=== PATIENT | male | born 1960 | race Caucasian/White ===

== ENCOUNTER 2024-12-29 09:18 | Outpatient (OUT) | payer OTHER, SELFPAY ==
[2024-12-29 09:56] LABS: Anion Gap 13.3; BUN Creatinine Ratio 18.5; Calcium 9.4 mg/dL (8.5-10.1); Carbon Dioxide 31.1 mmol/L (21.0-32.0); Chloride 102 mmol/L (98-107); Estimated GFR (African America >60 (>=60 mL/min/1.73m^2); Estimated GFR (Non-African Ame >60 (>=60 mL/min/1.73m^2); Glucose 105 mg/dL (74-106); Potassium 4.4 mmol/L (3.5-5.1); Sodium 142 mmol/L (136-145)
[2024-12-29 10:01] LABS: INR 1.02; Partial Thromboplastin Time 26.7 sec (22.3-36.2); Prothrombin Time 10.8 sec (9.0-11.6)
[2024-12-29 10:12] LABS: Basophils Percent Auto 0.6 % (0.2-2.0); Eosinophils Absolute Auto 0.1 10^3/uL (0.0-0.7); Eosinophils Percent Auto 1.4 % (0.9-7.0); Hematocrit 40.7 % (42.0-54.0); Hemoglobin 13.4 g/dL (14.0-18.0); Immature Granulocytes Abs Auto 0.04 10^3/uL (0.00-0.03); Immature Granulocytes Pct Auto 0.6 % (0.0-0.5); Lymphocytes Absolute Auto 1.7 10^3/uL (1.2-3.8); Lymphocytes Percent Auto 26.5 % (20.5-60.0); Mean Corpuscular HGB Conc 32.9 g/dL (29.9-35.2); Mean Corpuscular Hemoglobin 28.6 pg (25.9-34.0); Mean Platelet Volume 9.7 fL (9.5-13.5); Monocytes Absolute Auto 0.5 10^3/uL (0.3-0.8); Monocytes Percent Auto 7.7 % (1.7-12.0); Neutrophils Absolute Auto 4.1 10^3/uL (1.4-6.5); Neutrophils Percent Auto 63.2 % (43.0-75.0); Platelet Count 289 10^3/uL (150-450); Red Blood Count 4.68 10^6/uL (4.70-6.10); Red Cell Distribution Width 12.4 % (11.0-15.0); White Blood Count 6.5 10^3/uL (4.0-11.0)
== END 2024-12-29 09:19 | disposition home or self-care (01) ==
LOC: PST 09:18
PROVIDERS: PCP Family Medicine; Visit Provider Urology
DX: Z01.812 Encounter for preprocedural laboratory examination (principal); N20.0 Calculus of kidney
CPT/HCPCS: 80048; 85025; 85610; 85730

== ENCOUNTER 2025-01-01 07:58 | Day surgery (SDC) | payer OTHER, SELFPAY ==
[2024-12-29 09:42] VITALS: BP 137/88; PULSE 86; TEMP 36.2; O2SAT 98; BMI 28.2
[2025-01-01] VITALS (10 sets, daily range): BP systolic 135–161; BP diastolic 90–101; PULSE 71–79; TEMP 36–36.1; O2SAT 94–98; BMI 28.2
--- NOTE | 2025-01-01 | FL_ITS ---
[place] [id number] Patient Name: VIRGINIA LOZADA MRN: [id number] date: 1960 Sex: M Assigned Patient Location: [facility] Current Patient Location: [facility] Accession/Order Number: [id number] Exam Date: 01/01/2025 10:17 Report Date: 01/02/2025 08:20 At the request of: ROMMEL RIVERA Procedure: FL fluoroscopy <1hr NON-READ EXAM: FL fluoroscopy <1hr NON-READ HISTORY: TECHNIQUE: FINDINGS: Please see Operative Report. Electronically authenticated by: RADIOLOGIST NO Date: 01/02/2025 08:20
--- OUTSIDE RECORDS SUMMARY | 2025-01-01 08:03 | XMS_ITS | CCD ---
Author Organization [facility]ini[facility] Care Team Providers Care Commercial Portfolio Manager Name Role Phone Link, Ramon Rodriguez Unavailable Unavailable Unavailable Mare Hughes Unavailable NICOLE, DR CARNEY Consulting Unavailable NICOLE, DR CARNEY Attending Unavailable MISC, DR MUNIZ Primary Care Unavailable RIVERA, DR CARNEY Admitting Unavailable RIVERA, DR CARNEY Consulting Unavailable RIVERA, DR CARNEY Attending Unavailable MISC, DR MUNIZ Primary Care Unavailable NICOLE, DR CARNEY Admitting Unavailable RIVERA, DR CARNEY Consulting Unavailable RIVERA, DR CARNEY Attending Unavailable MISC, DR MUNIZ Primary Care Unavailable RIVERA, DR CARNEY Admitting Unavailable ZIEBER, DR DORY Frias Consulting Unavailable AGUBOSIM, KAELYN Consulting Unavailable CARLY, GEORGI Consulting Unavailable Cortney Booker Primary Care Physician Clark Sadler Unavailable MD Mare Hughes Attending Provider MD Mare Hughes Referring Provider [phone] DO Clark Sadler Primary Care Provider [phone] SERGO NICOLE Attending Unavailable MARE HUGHES Referring Unavailable CLARK SADLER Primary Care UnavailMD Mare Martinez Attending Provider MD Mare Hughes Referring Provider DO Clark Sadler Primary Care Provider Clark Sadler Primary Care Physician Clark Sadler Primary Care Unavailable Mare Hughes Admitting Unavailable Mare Hughes Attending Unavailable Mare Hughes Referring Unavailable Mare Hughes Admitting Unavailable HughesMare Attending Unavailable HughesMare Referring Unavailable Viktoriya, Clark C Primary Care Unavailable Viktoriya DO, Clark C Primary Care Provider Hughes, Dr. Mare Moeller Attending Elena vailable Hughes, Dr. Mare Moeller Referring Elena vailable Link, Dr. Ramon Olvera Primary Care Unava ilable Hughes, Dr. Mare Moeller Attending Elena vailable Hughes, Dr. Mare Moeller Referring Elena vailable Hughes, Dr. Mare Moeller Attending Elena vailable Hughes, Dr. Mare Moeller Attending Elena vailable Hughes, Dr. Mare Moeller Referring Elena vailable DAVID, SERGO S Admitting Unavailable DAVID, SERGO S Attending Unavailable VIKTORIYA, CLARK C Primary Care Unavailable Viktoriya DO, Clark C Primary Care Provider [phone] Rommel RIVERA Attending Unavailable RIVERARommel R Referring Unavailable RIVERARommel R Admitting Unavailable HughesMare Admitting Unavailable HughesMare Attending Unavailable Unavailable Primary Care Provider Unavailsharon e Unallocated MD, Noms Provider Primary Care Provi enrique Pocos DOGinny Unavailable Rommel RIVERA Attending Unavailable RIVERA, Rommel R Attending Unavailable RIVERA, Rommel R Referring Unavailable RIVERA, Rommel R Admitting Unavailable RIVERA, Rommel R Attending Unavailable Santiago RICHARDS Attending Unavailable PREMA SUN Attending Unavailable POCOS, GINNY Villarreal Referring Unavailable POCOS, GINNY Villarreal Referring Unavailable POCOS, GINNY Villarreal Attending Unavailable POCOS, GINNY Villarreal Referring Unavailable POCOS, GINYN Villarreal Attending Unavailable SAMSA, SARAHY P Attending Unavailable SAMSA, SARAHY P Referring Unavailable SAMSA, SARAHY P Admitting Unavailable SAMSA, SARAHY P Admitting Unavailable SAMSA, SARAHY P Attending Unavailable SAMSA, SARAHY P Referring Unavailable Hughes, Mare Admitting Unavailable Hughes, Mare Attending Unavailable RIVERARommel R Attending Unavailable HUGHES, MARE Kumar Attending Unavailable HUGHES, MARE Kumar Referring Unavailable VIKTORIYAADAMCLARK C Primary Care Unavailable HUGHES, MARE Kumar Referring Unavailable VIKTORIYA, CLARK C Primary Care Unavailable MARE HUGHES Attending Unavailable MARE HUGHES Referring Unavailable CLARK SADLER Primary Care Unavailable MARE HUGHES Attending Unavailable MARE HUGHES Referring Unavailable CLARK SADLER Primary Care Unavailable MARE HUGHES Attending Unavailable CLARK SADLER Primary Care Unavailable Clark Sadler MD Primary Care Provider [phone] Medications Current Medications Medication Drug Class(es) Dates Sig (Normalized) Sig (Original) acetaminophen 325 mg oral tablet (1 source) Start: 12-13-2023 take 1 tablet by mouth every six hours as needed acetaminophen (Tylenol) tablet 650 mg amiodarone hydrochloride 200 mg oral tablet (15 sources) Antiarrhythmic Start: 12-14-2023 End: 06-11-2024 take 1.5 tablets by mouth once daily amiodarone (Pacerone) 200 mg tablet Indications: Paroxysmal atrial fibrillation (Multi) Take 1.5 tablets (300 mg) by mouth once daily. Take 1.5 tablets daily or 300 mg 45 tablet 5 12/14/2023 04/02/2024 Discontinued (Discontinued by another clinician) Start: 09-10-2023 End: 12-14-2023 amiodarone 200 mg Tab Refill s(s) 0 Start Date: 11/23/23 Status: Ordered Start: 08-16-2023 take 2 tablets by mo uth twice daily Amiodarone HCl - 200 MG Oral Tablet TAKE 2 TABLET Twice daily Quantity: 360 Refills: 1 Ordered: 16-Aug-2023 Mare Hughes MD Start : 16-Aug-2023 Active stop flecainide new start amLODIPine 10 mg oral tablet (20 sources) Dihydropyridine Calcium Channel Cayetano Start: 11-23-2023 End: 11-22-2024 take 5 mg by mouth once daily 5 mg, oral, Daily, First dose on [facility] 12/13/23 at 0900 Start: 10-04-2021 End: 12-09-2025 take 1 tablet by mouth once daily amLODIPine (Norvasc) 10 mg tablet Indications: Benign essential hypertension Take 1 tablet (10 mg) by mouth once daily. 90 tablet 3 12/09/2024 12/09/2025 Active Comment on above: Take 10 mg by mouth once daily. clotrimazole 10 mg/ml topical cream (4 sources) Azole Antifungal Start: clotrimazole Top 1% Crm 1 kleber, Topical, BID, 12 gram, Refill(s) 0, [facility]/pharmacy #[id number], 182, cm, 08/09/22 13:31:00 EDT, Height/Length Dosing, 89, kg, 08/09/22 13:31:00 EDT, Weight Dosing Start Date: 08/09/22 Status: Ordered docusate sodium 100 mg oral capsule (1 source) Start: End: take 1 capsule by mouth twice daily docusate sodium (COLACE) 100 mg capsule Take 1 capsule by mouth twice daily. 60 capsule 0 01/27/2022 02/26/2022 Active Comment on above: Take 1 capsule by mo uth twice daily. hydroCHLOROthiazide 25 mg oral tablet (20 sources) Thiazide Diuretic Start: take 12.5 mg by mouth once daily 12.5 mg, oral, Daily, First dose on [facility] 12/13/23 at 0900 Start: 10-04-2021 End: 11-28-2024 take 1 tablet by mouth once daily hydrochlorothiazide 12.5 mg Tab 12.5 mg = 1 tab(s), Oral, Daily, # 30 tab(s), Refills(s) 0, Pharmacy: [facility]/pharmacy #[id number], 182.9, cm, 10/03/21 8:43:00 EST, Height/Length Dosing, 91, kg, 10/03/21 8:43:00 EST, Weight Dosing Start Date: 10/04/21 Status: Ordered Comment on above: Take 12.5 mg by mout h once daily. Hydrocortisone (4 sources) Corticosteroid Start: hydrocortisone Top 1% Crm 1 kleber, Topical, BID, 14 gram, Refill(s) 0, [facility]/pharmacy #[id number], 182, cm, 08/09/22 13:31:00 EDT, Height/Length Dosing, 89, kg, 08/09/22 13:31:00 EDT, Weight Dosing Start Date: 08/09/22 Status: Ordered indapamide 1.25 mg oral tablet (10 sources) Thiazide-like Diuretic Start: End: take 1 tablet by mouth once daily in the morning indapamide (Lozol) 1.25 mg tablet Indications: Benign essential hypertension Take 1 tablet (1.25 mg) by mouth once daily in the morning. 90 tablet 3 08/19/2024 08/19/2025 Active 24 hr metoprolol succinate 25 mg extended release oral tablet (20 sources) beta-Adrenergic Cayetano Start: take 1 tablet by mouth every twenty-four hours in the morning metoprolol succinate XL (Toprol-XL) 25 MG 24 hr tablet Take 25 mg by mouth in the morning. 08/19/2024 Active Start: 11-03-2023 End: 12-25-2024 take 1 tablet by mouth once daily metoprolol succinate XL (Toprol-XL) 25 mg 24 hr tablet Indications: Benign essential hypertension Take 1 tablet (25 mg) by mouth once daily. Do not crush or chew. 5 tablet 08/19/2024 12/25/2024 Discontinued (Therapy completed) Start: 07-12-2023 take 25 mg by mouth once daily Metoprolol Succinate Active 25 MG PO Daily August 08, 2023 11:00pm End: 12-11-2023 take 1 tablet by mouth once daily metoprolol tartrate (Lopressor) 25 mg tablet Take 1 tablet (25 mg) by mouth once daily. 0 12/11/2023 Discontinued (Med List Cleanup) omeprazole 20 mg delayed release oral capsule (20 sources) Proton Pump Inhibitor Start: 08-09-2023 take 40 mg by mouth once daily Omeprazole Active 40 MG PO Daily August 08, 2023 11:00pm Start: 12-26-2013 take 1 capsule by mo [facility] once daily omeprazole 40 mg Cap-EC 40 mg = 1 cap(s), Oral, Daily, Refills(s) 0, Control of stomach acid Start Date: 12/26/13 Status: Ordered End: 12-25-2024 take 1 capsule by mouth before mealtime omeprazole (PriLOSEC) [address] capsule Take 20 mg by mouth in the morning. Take before meals. Active End: 12-13-2023 take 2 capsules by mouth once daily omeprazole (PriLOSEC) [address] capsule Take 2 capsules (40 mg) by mouth once daily. 0 12/13/2023 Discontinued (Stop Taking at Discharge) Comment on above: Take 20 mg by mouth once daily. pantoprazole 40 mg delayed release oral tablet (4 sources) Proton Pump Inhibitor Start: 12-13-2023 take 40 mg by mouth once daily before breakfast 40 mg, oral, Daily before breakfast, First dose on [facility] 12/13/23 at 0700 Do not crush, chew, or split. Start: 12-12-2023 End: 04-02-2024 take 1 tablet by mouth twice daily pantoprazole (ProtoNix) 40 mg EC tablet Indications: Persistent atrial fibrillation (Multi) Take 1 tablet (40 mg) by mouth 2 times a day. Do not crush, chew, or split. 60 tablet 12/12/2023 04/02/2024 Discontinued (Other) rivaroxaban 20 mg oral tablet (20 sources) Factor Xa Inhibitor Start: 11-23-2023 Xarelto 20 mg oral tablet Refills(s) 0 Start Date: 11/23/23 Status: Ordered Start: 07-12-2023 End: 12-03-2024 Xarelto 20 mg oral tablet Re fills(s) 0 Start Date: 11/23/23 Status: Ordered sodium fluoride 0.011 mg/mg toothpaste (2 sources) Start: 12-19-2023 End: 08-19-2024 Denta 5000 Plus 1.1 % dental cream BRUSH FOR 2 MINUTES AT BEDTIME .AFTER USE,EXPECTORATE.DO NOT EAT,DRINK OR RINSE X30 MINUTES 12/19/2023 08/19/2024 Discontinued (Therapy completed) Completed/Discontinued Medications Medication Drug Class(es) Dates Sig (Normalized) Sig (Original) aspirin 81 mg delayed release oral tablet (13 sources) Platelet Aggregation Inhibitor, Nonsteroidal Anti-inflammatory Drug Start: 10-02-2023 End: 12-12-2023 take 81 mg by mouth once daily Aspirin Discontinued 81 MG PO Daily October 02, 2023 12:00am October 03, 2023 1:38pm Start: 10-16-2022 aspirin 81 mg oral capsule Refills(s) 0 Start Date: 10/16/22 Status: Ordered aspirin 81 mg ca p Take by mouth. 0 Active Comment on above: Take by mouth. flecainide acetate 50 mg oral tablet (6 sources) Antiarrhythmic Start: 08-09-2023 End: 10-02-2023 take 50 mg by mouth every twelve hours Flecainide Discontinued 50 MG PO Q12H August 08, 2023 11:00pm October 02, 2023 1:22pm Start: 07-12-2023 take 1 tablet by dennise th once daily Flecainide Acetate 50 MG Oral Tablet TAKE 1 TABLET EVERY 12 HOURS DAILY. Quantity: 180 Refills: 3 Ordered: 12-Jul-2023 Mare Hughes MD Start : 12-Jul-2023 Active new start 2 ml ondansetron 2 mg/ml injection (1 source) Serotonin-3 Receptor Antagonist Start: 12-12-2023 End: 12-12-2023 ondansetron (Zofran) injection 4 mg Problems Active Problems Problem Classification Problem Date Documented Date Episodic/Chronic Cancer of kidney and renal pelvis (1 source) Malignant tumor of kidney; Translations: [Malignant neoplasm of right kidney, except renal pelvis] Chronic Cardiac dysrhythmias (20 sources) Atrial fibrillation; Translations: [Atrial fibrillation] Onset: 01-16-2022 01-23-2022 Chronic Conduction disorders (20 sources) EKG: right bundle branch block; Translations: [Right bundle branch block] Onset: 08-29-2023 08-29-2023 Chronic Disorders of lipid metabolism (1 source) Hyperlipidemia, unspecified; Translations: [HYPERLIPIDEMIA UNSPECIFIED] Onset: 01-16-2022 Chronic Esophageal disorders (18 sources) Gastroesophageal reflux disease; Translations: [Gastro-esophageal reflux disease without esophagitis] Onset: 01-23-2022 01-23-2022 Chronic Essential hypertension (20 sources) Benign essential hypertension; Translations: [Benign essential hypertension] Onset: 01-16-2022 01-23-2022 Chronic Hyperplasia of prostate (20 sources) Benign prostatic hyperplasia with lower urinary tract symptoms; Translations: [Benign prostatic hypertrophy with outflow obstruction] Onset: 01-16-2022 10-26-2021 Chronic Osteoarthritis (17 sources) Osteoarthritis of hip; Translations: [Osteoarthritis of hip, unspecified] Onset: 01-12-2024 09-20-2017 Chronic Comment on above: right Other aftercare (3 sources) Drug therapy finding; Translations: [Long-term (current) use of other medications] Episodic Other aftercare (2 sources) Taking high risk medication; Translations: [Other manager terminal (current) drug therapy] 12-14-2023 Episodic Other congenital anomalies (2 sources) Other specified congenital musculoskeletal deformities; Translations: [Unspecified anomaly of upper limb] 12-03-2024 Chronic Other congenital anomalies (2 sources) Congenital abnormal fusion of radius; 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), including shoulder girdle] 12-24-2024 Chronic Other connective tissue disease (1 source) Muscle weakness of upper limb; Translations: [Other symptoms and signs involving the musculoskeletal system] 12-15-2024 Episodic Other connective tissue disease (1 source) Pain in right arm; Translations: [Pain in right arm] 12-15-2024 Episodic Other connective tissue disease (3 sources) Pain in left arm; Translations: [Pain in left arm] 12-15-2024 Episodic Other diseases of kidney and ureters (20 sources) Renal mass; Translations: [Unspecified disorder of kidney and ureter] Onset: 01-25-2022 01-25-2022 Chronic Other diseases of kidney and ureters (1 source) Other specified disorders of kidney and ureter; Translations: [OTHER SPEC DISORDERS KIDNEY URETER] Onset: 01-16-2022 Chronic Other diseases of kidney and ureters (3 sources) Disorder of kidney and/or ureter; Translations: [Other specified disorders of kidney and ureter] Onset: 10-16-2022 Chronic Other inflammatory condition of skin (17 sources) Rosacea; Translations: [Rosacea, unspecified] Onset: 01-12-2024 10-04-2021 Chronic Other male genital disorders (7 sources) Disorder of penis; Translations: [Other specified disorders of penis] Onset: 08-09-2022 Chronic Other male genital disorders (15 sources) Penile swelling; Translations: [Other specified disorders of penis] Onset: 01-12-2024 10-16-2022 Chronic Other nervous system disorders (5 sources) Bilateral carpal tunnel syndrome; Translations: [Carpal tunnel syndrome, bilateral upper limbs] 12-03-2024 Chronic Other nervous system disorders (1 source) Numbness; Translations: [Anesthesia of skin] 12-15-2024 Episodic Other non-traumatic joint disorders (2 sources) Bilateral wrist pain; Translations: [Pain in right wrist] 12-03-2024 Episodic Other nutritional; endocrine; and metabolic disorders (3 sources) Body mass index 30+ - obesity; Translations: [Body mass index (BMI) 33.0-33.9, adult] Onset: 10-15-2024 10-15-2024 Chronic Other nutritional; endocrine; and metabolic disorders (2 sources) Body mass index (BMI) 33.0-33.9, adult; Translations: [Body mass index (BMI) 33.0-33.9, adult] Onset: 10-15-2024 Chronic Other upper respiratory infections (17 sources) Chronic sinusitis; Translations: [Chronic sinusitis, unspecified] Onset: 01-12-2024 01-30-2014 Chronic Unclassified (11 sources) Asymptomatic microscopic hematuria 10-16-2022 Unclassified (10 sources) Patient encounter status 11-23-2023 Unclassified (2 sources) Other persistent atrial fibrillation; Translations: [Other persistent atrial fibrillation (CMS/HCC)] Onset: 12-12-2023 Past or Other Problems Problem Classification Problem Date Documented Date Episodic/Chronic Calculus of urinary tract (20 sources) Kidney stone; Translations: [Calculus of kidney] Onset: 01-06-2022 Episodic E Codes: Natural/environment (5 sources) Other and unspecified overexertion or strenuous movements or postures, initial encounter; Translations: [Overexertion (event)] Onset: 08-09-2022 Episodic Genitourinary symptoms and ill-defined conditions (20 sources) Hematuria, unspecified; Translations: [Microscopic hematuria] Onset: 01-16-2022 10-26-2021 Episodic Other diseases of veins and lymphatics (18 sources) Varicocele; Translations: [Scrotal varices] Onset: 10-16-2022 Episodic Other nutritional; endocrine; and metabolic disorders (20 sources) Overweight in adulthood with body mass index of 25 or more but less than 30; Translations: [Overweight] Onset: 08-29-2023 08-29-2023 Episodic Other nutritional; endocrine; and metabolic disorders (6 sources) Overweight; Translations: [Overweight] Onset: 01-12-2024 12-14-2023 Episodic Other nutritional; endocrine; and metabolic disorders (2 sources) Body mass index (BMI) 28.0-28.9, adult; Translations: [Body mass index (BMI) 28.0-28.9, adult] Onset: 08-19-2024 Episodic Other nutritional; endocrine; and metabolic disorders (1 source) Overweight; Translations: [Overweight] Onset: 08-29-2023 Episodic Other nutritional; endocrine; and metabolic disorders (2 sources) Body mass index (BMI) 26.0-26.9, adult; Translations: [Body mass index (BMI) 26.0-26.9, adult] Onset: 08-29-2023 Episodic Other screening for suspected conditions (not mental disorders or infectious disease) (20 sources) Electrocardiogram abnormal; Translations: [Nonspecific abnormal electrocardiogram [ECG] [EKG]] Onset: 08-29-2023 Episodic Residual codes; unclassified (7 sources) Never smoked tobacco; Translations: [Other specified health status] Onset: 04-02-2024 04-02-2024 Episodic Residual codes; unclassified (2 sources) Other specified health status; Translations: [Other specified health status] Onset: 04-02-2024 Episodic Screening and history of mental health and substance abuse codes (4 sources) Ex-smoker; Translations: [Personal history of nicotine dependence] Onset: 04-02-2024 Resolved: 04-02-2024 04-02-2024 Episodic Unclassified (13 sources) Never smoked tobacco; Translations: [Never a smoker] Unclassified (4 sources) Onset: 04-02-2024 04-02-2024 Results Test Name Value Interpretation Reference Range Facility ECG 12 [place] 12-25-2024 ECG revealed normal sinus rhythm, right bundle branch block, abnormal ECG [facility] Work Phone: Reminderson 12-24-2024 Reminders Reminders From: Margaret Paredes To: EU - Recalls Rivera; Sent: 12/22/2024 16:29:15 EST Show up: 11/19/2025 16:29:00 EST Subject: Ct scan/labs in 2025 Due Date/Time: 12/07/2025 16:29:00 EST Reminder/Recall Patient is due Before 12/25/[address] scan ABD/Pelvis w/wo, PSA, CXR, bun/creatinine at [facility] Orders were placed. Orders were removed and will need to be placed closer to date.LG Normal [facility] Urology Office/Clinic Noteon 12-22-2024 Urology Office/Clinic Note Urology Office/Clinic Note Chief Complaint 1yr f/u HPI Staff 64yr old male pt here for 1yr f/u with CT scan, CXR, PSA, bun/creatinine. CT & CXR completed 12/02/24. S/p robotic partial rt nephrectomy done 01/25/22 Previous Dx: renal mass, kidney stone, asymptomatic microscopic hematuria, BPH with urinary obstruction, screening PSA, bilateral varicoceles PSA: 10/26/21 - 0.3 10/26/23 - 0.2 12/02/24 - 0.3 Dysuria: denies Incomplete bladder emptying: denies Hematuria: denies Frequency: 5-6x per day Urgency: a little bit, which has improved since last vist Nocturia: 2-3x per night Stream: normal stream Leaking: denies Post void dripping: denies Wearing pads/ Depends: denies Urge incontinence: denies Stress incontinence: denies Incontinence without Sensory Awareness: denies Abdominal pain: denies Flank pain: denies Sexual complaints: denies History of Present Illness Tests reviewed: reviewed UA, PSA, CT scan, X-ray, Renal function labs I have reviewed the previous health record information and history for this patient from Dr. Rivera. I have reviewed and verified the staff HPI to be accurate for this encounter. Review of Systems PHQ Score Initial Depression Screen Score: 0 SCORE ROS - Provider Constitutional: denies weight loss, denies hot flashes. Eyes: denies eye problems. Gastrointestinal: denies nausea, denies vomiting. Cardiovascular: denies chest pain or angina. Integumentary: no dryness Musculoskeletal: denies musculoskeletal symptoms. ENMT: denies otolaryngeal symptoms. Respiratory: no shortness of breath. Heme/Lymph: denies easy bleeding tendency, denies easy bruising tendency. Psychiatric: no confusion, no anxiety. Genitourinary: See HPI. Physical Exam Vitals & Measurements T: 37 ???C(Oral) HR: 88(Peripheral) RR: 18 BP: 139/89 HT: 72 in HT: 182 cm WT: 92 kg WT: 202.825 lb BMI: 27.77 General Appearance: alert, no distress, well nourished, well developed male. Assessment/Plan 1. 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 done 10/03/21, ovoid mass of the central right kidney measuring 3 x 2 x 3 cm. MRI ABD done 11/08/21 was concerning for kidney cancer. Pt was referred to Dr Kan @ [facility]. [1] CT AP w/wo con 12/02/24 [place] - Postsurgical change RLP again id'd. No hydro or masses bilaterally. CXR 12/02/24 [place] - No evidence of active disease in the chest. Renal fxn 12/02/24 - BUN 15, Cr 0.7, eGFR 103. Reviewed imaging and labs. Advised pt all wnl. Will cont to monitor. -CT AP w/wo, CXR, and renal function labs in 1 year. -If stable 5 years after nephrectomy, can consider d/c monitoring 2. Kidney stone (N20.0: Calculus of kidney) S/p L ESWL 01/12/22. KUB 10/26/23 - neg for obvious stones. CT AP w/wo con 12/02/24 [place] - [employer] kidney measuring up to 6mm. 1.5 mm calculus midpole L kidney. No hydro or masses bilaterally. Reviewed imaging results. Advised pt he has left renal stones. Likely have grown since L ESWL. Denies any stone passage after that procedure. Discussed options of operative intervention like URS/basket extraction/possible stent placement. Not a candidate for ESWL given stones are not visible on x-ray. Pt prefers to proceed with URS now. -Will schedule a Cystoscopy with Left Ureteroscopy, Left Laser Litho, Left Stone Basket, Left possible stent placement. The procedure risks, benefits, alternatives and complications have been discussed with the patient. These include but are not limited to bleeding, pain, infection, ureteral perforation, extravasation, stricture formation, sepsis, obstruction, inability to reach the stone, inability to fragment the stone, and inability to retrieve all stone fragments. The need for ancillary procedures such as stent placement and removal, retrograde urography, and percutaneous nephrostomy were also discussed. The patient also understood that a ureteral stent may be placed and removal of the stent is critical. Failure to follow up for stent removal can result in recurrent UTIs, encrustation of the stent, loss of kidney function and need for nephrectomy. All of their questions and concerns have been addressed. Full informed consent has been obtained. Will order General anesthesia. 3. Asymptomatic microscopic hematuria (R31.21: Asymptomatic microscopic hematuria) Cysto done 11/29/21. Positive FISH 10/26/21. Urine path [facility] [place] - negative. UA today shows trace-intact blood (not clinically significant). Denies gross hematuria. -Cont routine UAs and sx monitoring. Pt knows to notify the office if he were to experience gross hematuria or clots. 4. BPH with urinary obstruction (N40.1: Benign prostatic hyperplasia with lower urinary tract symptoms) UA today negative for infection. Not taking any BPH meds. Not voicing any urinary habit complaints. 5. Screening PSA (prostate specific (more content not included)... [facility] Comment on above: Result Comment: Elec tronically Signed By: Rommel RIVERA MD\.br\Date and Time Signed: 12/22/24 16:21 EST\.br\Electronically Co-Signed By: Gloria Perera\.br\Date and Time Co-Signed: 12/22/24 16:17 EST EMG 2 Extremitieson 12-15-19 25 EMG/ NCS BUE Mild left carpal tunnel syndrome Moderate right carpal tunnel syndrome [facility] 11-12 Nerveson 5 EMG/ NCS BUE Mild left carpal tunnel syndrome Moderate right carpal tunnel syndrome [facility] CT Abdomen/Pelvis w/ + w/o C [facility] 12-03-2024 CT Abdomen/Pelvis w/ + w/o Contrast Exam Date/Time: 12/02/2024 16:44 EST Reason for Exam: N28.89;Other (please specify) Report IMPRESSION: REMOTE RIGHT PARTIAL NEPHRECTOMY, LOWER POLE. NONOBSTRUCTING BILATERAL RENAL CALCULI. FINDINGS SUGGESTIVE OF INFLAMMATORY BOWEL DISEASE, DISTAL AND TERMINAL ILEUM. SIGMOID DIVERTICULOSIS. BILATERAL BIPOLAR HIP ARTHROPLASTY. CT OF THE ABDOMEN AND PELVIS WITH INTRAVENOUS CONTRAST MEDIUM. HISTORY: N28.89. TECHNICAL FACTORS: CT imaging of the abdomen and pelvis were obtained and formatted as 5 mm contiguous axial images from the domes of the diaphragm to the symphysis pubis. Sagittal and coronal reconstructions were also obtained. Oral contrast medium: None. Intravenous contrast medium: Isovue-300, 100 mL. Comparison: CT abdomen pelvis, December 05, 2023. Findings: Lower chest: Cardiac size normal. No pericardial effusion. No coronary artery calcification. Subsegmental atelectatic change right lung base. Last opacity previously identified at lung bases, no longer visualized. Liver: Normal in size, shape, and attenuation. Bile Ducts: Normal in caliber. Gallbladder: No stones or wall thickening. Pancreas: Normal without masses, cysts, ductal dilatation or calcification. Spleen: Normal in size without masses or calcifications. No splenules. Kidneys: Normal in size and enhancement. Postsurgical change, lower pole right kidney again identified. Calculi lower pole left kidney measuring up to 6 mm. 1.5 mm calculus midpole left kidney. No hydronephrosis or masses bilaterally. Adrenals: Normal. Small bowel: Normal in caliber. Moderate circumferential fatty wall thickening distal and terminal ileum. Report Appendix: Normal. Colon: Normal in caliber. Diverticular change, sigmoid colon. Peritoneum: No ascites, free air, or fluid collections. Vessels: Aorta normal in course and caliber. Portal vein, splenic vein, superior mesenteric vein are patent. Lymph nodes: Retroperitoneal: No enlarged retroperitoneal lymph nodes. Mesenteric: No enlarged mesenteric lymph nodes. Pelvic: No enlarged pelvic lymph nodes. Ureters: Normal in course and caliber. No calcifications. Bladder: No wall thickening. Reproductive organs: No pelvic masses. Abdominal Wall: No hernia identified. No diastasis of rectus musculature. No edema or masses. Bones: No bone lesions. No degenerative changes. Bilateral bipolar hip placement. Beam hardening artifact identified coursing through lower pelvis. All CT scans at this facility use dose modulation, iterative reconstruction, and/or weight based dosing when appropriate to reduce radiation dose to as low as reasonably achievable. Ordering Provider: Rommel RIVERA FINAL REPORT Dictated: 12/03/2024 4:31 pm Brian Rebolledo MD Signed (Electronic Signature): 12/03/2024 4:31 pm Signed by: Brian Rebolledo MD Transcribed by: MAURICE Technologist: SKYLA Technical Comments GFR (mL/min/1/73m2) >60 Contrast: Isovue 300 Contrast amount in ml's: 100 Normal [facility] BUNon 12-02-2024 Urea nitrogen [Mass/Vol] 15 mg/dL Normal 5-21 [facility] Comment on above: Performed By: #### 2 [id number] #### [facility] [address] [place] [address] CHEMISTRYOrdered By: SYSTEM SYSTEM on 12-02-2024 Creatinine [Mass/Vol] 0.7 mg/dL Normal 0.5 - 1.3 mg/dL Remisol Chem eGFR 103 mL/min/1.73 m2 Normal >=59mL/mi n/ 1.73 m2 [facility] Chem Prostate specific Ag [Mass/Vol] 0.3 ng/mL Normal 0.1 - 3.5 ng/mL [facility] Comment on above: Interpretive Data: T he concentration of PSA determined by different manufacturers can vary due to differences in assay methods and reagent specificity. Values obtained from different assay methods cannot be used interchangeably. The methodology used for this result was chemiluminescence using [employer] Hybr[employer] PSA reagent. Urea nitrogen [Mass/Vol] 15 mg/dL Normal 5 - 21 mg/dL Rem[facility] Chem Creatinineon 12-02-2024 Creatinine [Mass/Vol] 0.7 mg/dL Normal 0.5-1.3 [facility] Comment on above: Performed By: #### 2 [id number] #### [facility] [address] [place] [address] PSA Totalon 12-02-2024 Prostate specific Ag [Mass/Vol] 0.3 ng/mL Normal 0.1-3.5 [facility] Comment on above: Result Comment: The concentration of PSA determined by different manufacturers can vary due to differences in assay methods and reagent specificity. Values obtained from different assay methods cannot be used interchangeably. The methodology used for this result was chemiluminescence using [employer]'s Access Hybritech PSA reagent. Performed By: #### 1 [id number] #### [facility] [address] [place] [address] XR Chest 2 Viewson 5 XR Chest 2 Views Exam Date/Time: 12/02/2024 15:42 EST Reason for Exam: N28.89 other specified disorders of kidney and ureter;Other (please specify) Report IMPRESSION: NO RADIOGRAPHIC EVIDENCE OF ACTIVE DISEASE IN THE CHEST. CLINICAL INFORMATION: N28.89 other specified disorders of kidney and ureter COMPARISON: None available. FINDINGS: Two views of the chest were obtained. Heart and mediastinum appear normal. The lungs appear clear. Visualized bony thorax and remainder of the chest appears unremarkable. Ordering Provider: Rommel RIVERA FINAL REPORT Dictated: 12/02/2024 6:25 pm Brian Rebolledo MD Signed (Electronic Signature): 12/02/2024 6:25 pm Signed by: Brian Rebolledo MD Transcribed by: MAURICE Technologist: ANGELO Technical Comments Radiation Dose: Ka,r in mGy = . DAP = . Normal [facility] eGFRon 12-02-2024 eGFR 103 mL/min/1.73 m2 Normal >=59 [facility] Comment on above: Performed By: #### 1 [id number] #### [facility] [address] [place] [address] BMPon 10-15-2024 Anion gap [Moles/Vol] 11 mmol/L Normal 6-16 [facility] Comment on above: Performed By: #### 2 [id number] #### [facility] [address] [place] [address] Calcium [Mass/Vol] 8.7 mg/dL Low 8.9-11.1 [facility] Comment on above: Performed By: #### 2 [id number] #### [facility] [address] [place] [address] Chloride [Moles/Vol] 105 mmol/L Normal 101-111 [facility] Comment on above: Performed By: #### 2 079529 #### [facility] [address] [place] [address] CO2 [Moles/Vol] 28 mmol/L Normal 21-31 [facility] Comment on above: Performed By: #### 2 671440 #### [facility] [address] [place] [address] Creatinine [Mass/Vol] 1.1 mg/dL Normal 0.5-1.3 [facility] Comment on above: Performed By: #### 2 769454 #### [facility] [address] [place] [address] Glucose [Mass/Vol] 106 mg/dL Normal 55-199 [facility] Comment on above: Performed By: #### 2 554394 #### [facility] [address] [place] [address] Potassium [Moles/Vol] 3.6 mmol/L Normal 3.5-5.3 [facility] Comment on above: Performed By: #### 2 299436 #### [facility] [address] [place] [address] Sodium [Moles/Vol] 140 mmol/L Normal 135-145 [facility] Comment on above: Performed By: #### 2 693944 #### [facility] [address] [place] [address] Urea nitrogen [Mass/Vol] 18 mg/dL Normal 5-21 [facility] Comment on above: Performed By: #### 2 568698 #### [facility] [address] [place] [address] Urea nitrogen/Creatinine [Mass ratio] 16 No Units Normal 10-20 [facility] Comment on above: Performed By: #### 2 [id number] #### [facility] [address] [place] [address] CHEMISTRYOrdered By: SYSTEM SYSTEM on 10-15-2024 Anion gap [Moles/Vol] 11 mmol/L Normal 6 - 16 mEq/L Rem[facility] Chem Calcium [Mass/Vol] 8.7 mg/dL Low 8.9 - 11. 1 mg/dL [facility] Chem Chloride [Moles/Vol] 105 mmol/L Normal 101 - 1 11 mmol/L [facility] Chem CO2 [Moles/Vol] 28 mmol/L Normal 21 - 31 mmol/L [facility] Chem Creatinine [Mass/Vol] 1.1 mg/dL Normal 0.5 - 1.3 mg/dL Rem[facility] Chem eGFR 75 mL/min/1.73 m2 Normal >=59mL/min / 1.73 m2 [facility] Chem Glucose [Mass/Vol] 106 mg/dL Normal 55 - 199 mg/dL [facility] Chem Potassium [Moles/Vol] 3.6 mmol/L Normal 3.5 - 5.3 mmol/L [facility] Chem Sodium [Moles/Vol] 140 mmol/L Normal 135 - 145 mmol/L [facility] Urea nitrogen [Mass/Vol] 18 mg/dL Normal 5 - 21 mg/dL [facility] Chem Urea nitrogen/Creatinine [Mass ratio] 16 mg/mg Normal 10 - 20 [facility] eGFRon 10-15-2024 eGFR 75 mL/min/1.73 m2 Normal >=59 [facility] Comment on above: Performed By: #### 1 [id number] #### [facility] [address] [place] [address] ECG 12 Leadon 08-19-2024 ECG revealed normal sinus rhythm with right bundle branch block [facility] Work Phone: CT Chest w/o Contraston 03-20 CT Chest w/o Contrast Exam Date/Time: 04/07/2024 17:04 EDT Reason for Exam: J70.4 [id number] Report IMPRESSION: ESSENTIALLY NEGATIVE CHEST CT. EXAM: CT Chest w/o Contrast DATE: 04/07/2024 4:51 PM CLINICAL HISTORY: J70.4 T46.2X1A. COMPARISON: Chest CT 01/16/2024 and abdomen and pelvis CT 12/05/2023. TECHNIQUE: Spiral imaging was obtained of the chest without contrast. All CT scans at this facility use dose modulation, iterative reconstruction, and/or weight based dosing when appropriate to reduce radiation dose to as low as reasonably achievable. Unless otherwise stated, incidental findings identified in this report do not require routine follow-up imaging. FINDINGS: Lungs and pleura: Small nodular, groundglass, and consolidative opacities of the lung bases noted on the prior studies have essentially resolved, with minimal residual predominantly dependent probable atelectasis, and a stable 3 mm subpleural left lower lobe nodule (image 74 - axial series 3). No developing nodules, septal thickening, other suspicious opacities, pleural effusion, or pneumothorax. Approximately 4 mm densely calcified left upper lobe granuloma (image 56) and minimal pleural and parenchymal scarring of the lung apices. Mediastinum and lymph nodes: No pathologically enlarged mediastinal, hilar, or axillary lymph nodes. Heart: Not enlarged. Mild coronary artery calcifications suspected, within the limits of cardiac motion artifact. No significant pericardial effusion. Thoracic aorta: Normal in caliber with mild calcified atherosclerotic plaquing. Pulmonary arteries: Normal in caliber. Thyroid: Unremarkable. Esophagus: Unremarkable. Musculoskeletal: No acute osseous findings. Moderate degenerative changes with chronic mild vertebral body wedging and Schmorl's nodes of the mid to lower levels. Upper abdomen: Noncontributory. Report Ordering Provider: , FINAL REPORT Dictated: 04/09/2024 4:02 pm Harry Lao MD Signed (Electronic Signature): 04/09/2024 4:02 pm Signed by: Harry Lao MD Transcribed by: MAURICE Technologist: LIN Menjivar [facility] Consent for Treatmenton 03-20 Consent for Treatment [id number] IFF Normal [facility] ECG 12 Leadon 04-02-2024 ECG revealed normal sinus rhythm with right bundle branch block [facility] Work Phone: Insurance Correspondenceon 0 03-21-2024 Insurance Correspondence [id number]#[id number] TIFF Normal [facility] Physician Orderon 03-21-2024 Physician Order [id number]#[id number] TIFF Normal [facility] ACEon 01-18-2024 Angiotensin converting enzyme [Catalytic activity/Vol] 50 U/L Invalid Interpretation Code 14-82 [facility] Comment on above: Result Comment: Perf ormed at: [facility] [id number] PhD Carrie Santiago Performed By: #### 2 [id number], 78610763, 7240330, 53915182, 57508112, 89863293, 50325406, 4475850, 4886170 ####[facility] [address] [place] [address] ASA w/Reflex if POSon 2023 Nuclear Ab Ql (S) Negative Invalid Interpretation Code Negative [facility] Comment on above: Result Comment: Perf ormed at: [facility] [address], [place] [id number] PhD Carrie Santiago Performed By: #### 2 [id number], 86647905, 6489199, 38163822, 23008219, 90315582, 12320835, 4708656, 3280415 ####[facility] [address] [place] [address] ANCAon 01-18-2024 Neutrophil cytoplasmic Ab.classic IF (S) [Titer] <1:20 Invalid Interpretation Code Neg:<1:20 [facility] Comment on above: Performed By: #### 2 [id number], 39138300, 0763705, 49186311, 60478963, 57513578, 51831898, 8935447, 8255640 ####[address] [place] [address] Neutrophil cytoplasmic Ab.perinuclear IF (S) [Titer] <1:20 Invalid Interpretation Code Neg:<1:20 [facility] Comment on above: Result Comment: The presence of positive fluorescence exhibiting P-ANCA or C-ANCA patterns alone is not specific for the diagnosis of Conor's Granulomatosis (WG) or microscopic polyangiitis. Decisions about treatment should not be based solely on ANCA IFA results. The International ANCA Group Consensus recommends follow up testing of positive sera with both HI-3 and MPO-ANCA enzyme immunoassays. As many as 5% serum samples are positive only by EIA. Ref. AM J Clin Pathol 1999;111:507-513. Performed By: #### 2 [id number], 39583100, 4956314, 74592227, 63820739, 82252582, 96274321, 5084255, 6582277 ####[facility] [address] [place] [address] Neutrophil cytoplasmic Ab.perinuclear.atypical IF (S) [Titer] <1:20 Invalid Interpretation Code Neg:<1:20 [facility] Comment on above: Result Comment: The atypical pANCA pattern has been observed in a significant percentage of patients with ulcerative colitis, primary sclerosing cholangitis and autoimmune hepatitis. Performed at: [address] [id number] PhD Carrie Santiago Performed By: #### 2 [id number], 42793496, 2499664, 30420329, 32691577, 57843717, 14444286, 2749453, 3346240 ####[address] [place] [address] CCP Antibodies IgG/IgAon Cyclic citrullinated peptide IgA+IgG IA Qn 3 unit(s) Invalid Interpretation Code 0-19 [facility] Comment on above: Result Comment: Nega tive <20 Weak positive 20 - 39 Moderate positive 40 - 59 Strong positive >59 Performed at: [address] [id number] PhD Carrie Santiago Performed By: #### 2 80791194, 69364319, 6404038, 82547842, 53711544, 91070096, 73641450, 4086457, 1276261 ####[address] [address] RF Quanton 01-18-2024 Rheumatoid factor Qn 93.7 International_Unit/mL High <14.0 [facility] Comment on above: Result Comment: Perf ormed at: [address] [id number] PhD Carrie Santiago Performed By: #### 2 99741992, 53103226, 0954707, 02757350, 97818510, 70559169, 16646807, 9215732, 1366835 ####[address] [place] [address] Scl-70 Ab + Jo1on 01-18-2024 Sherry-1 extractable nuclear Ab Qn (S) <0.2 Invalid Interpretation Code 0.0-0.9 [facility] Comment on above: Result Comment: Perf ormed at: [facility] [address], [place] [id number] PhD Carrie Santiago Performed By: #### 2 45134764, 96046328, 2375039, 25862528, 49368000, 11259021, 64363408, 1094581, 6324711 ####[facility] [address] [place] [address] SCL-70 extractable nuclear Ab Qn (S) <0.2 Invalid Interpretation Code 0.0-0.9 [facility] Comment on above: Performed By: #### 2 17556965, 57988878, 9007518, 51372835, 85872162, 71685954, 84024839, 8619596, 6798025 ####[facility] [address] [place] [address] CT Chest w/ Contraston CT Chest w/ Contrast Exam Date/Time: 01/16/2024 07:49 EST Reason for Exam: R91.8, R59.0 Report IMPRESSION: BILATERAL GROUNDGLASS OPACIFICATIONS, LEFT GREATER THAN RIGHT. THE FINDINGS ARE NONSPECIFIC, BUT PNEUMONITIS, SUCH VIRAL PNEUMONITIS, IS A CONSIDERATION. CORRELATE CLINICALLY. CLINICAL HISTORY: R91.8, R59.0. Abnormality on CT abdominal exam. COMPARISON: CT abdomen and pelvis 12/05/2023. The patient has not had a prior CT chest at this facility. COMMENT: IV contrast enhanced images were obtained. There are scattered thoracic aortic calcifications. The thoracic aorta is normal in diameter, without evidence of aneurysm or dissection. The heart is upper limits of normal size. There is some coronary artery calcification. There is a small pericardial effusion. No mediastinal nor hilar lymphadenopathy is noted. There are mild pleural and parenchymal apical/subapical fibrotic densities bilaterally. There are some coarse fibrotic changes in the inferior lingula and anterior right middle lobe. There are areas of groundglass opacification, with ill-defined margins, in both lower lobes (left greater than right), the left upper lobe (most prominently the lingula), and less prominently in the right middle lobe. The groundglass opacifications are more prominent in the periphery of the lungs. The groundglass opacifications are nonspecific, and may be due to multiple possible causes, but pneumonitis (such as viral pneumonitis) is a consideration. No consolidated airspace opacification is noted. No focal lung mass is evident. There is no pleural effusion. There is a small calcified granuloma in the medial right lower lobe. There is thoracic spondylosis. All CT scans at this facility use dose modulation, iterative reconstruction, and/or weight based dosing when appropriate to reduce radiation dose to as low as reasonably achievable. Unless otherwise stated, incidental findings identified in this report do not require routine follow-up imaging. Ordering Provider: , FINAL REPORT Dictated: 01/17/2024 4:43 pm Buzz De La Vega M.D. Signed (Electronic Signature): 01/17/2024 4:43 pm Signed by: Buzz De La Vega M.D. Transcribed by: MAURICE Technologist: FERNANDO Technical Comments GFR (mL/min/1/73m2) >60 Contrast: Isovue 300 Technical Comments Contrast amount in ml's: 100 Normal [facility] CBC w/ Auto Diffon 4 Basophils/100 WBC (Bld) 0.8 % Normal 0.0-2.0 [facility] Comment on above: Performed By: #### 2 [id number], 25809091, 6334576, 11847979, 25249437, 96957915, 79472783, 3082774, 9593420 ####[facility] [address] [place] [address] Basophils/Leukocytes Auto (Bld) [Pure # fraction] 0.1 E9/L Normal 0.0-0.2 [facility] Comment on above: Performed By: #### 2 90366594, 48009390, 6055767, 22404336, 66538752, 07218631, 86638416, 2891386, 3092336 ####[facility] [address] [place] [address] Eosinophils (Bld) [#/Vol] 0.2 E9/L Normal 0.0-0.5 [facility] Comment on above: Performed By: #### 2 05369561, 03367828, 5349051, 15040210, 19351680, 92246515, 87818098, 5330319, 8244926 ####[address] [place] [address] Eosinophils/100 WBC (Bld) 2.1 % Normal 0.0-8.0 [facility] Comment on above: Performed By: #### 2 57334913, 35152946, 0921083, 95457928, 67873735, 06346304, 26224358, 4770260, 1821884 ####[address] [place] [address] Erythrocyte distribution width (RBC) [Ratio] 12.9 % Normal 10.9-14.2 [facility] Comment on above: Performed By: #### 2 00803931, 22926694, 1448996, 12301468, 49330479, 73903573, 78026276, 4666435, 0871621 ####[address] [address] Hematocrit (Bld) [Volume fraction] 39.7 % Normal 37.7-49.0 [facility] Comment on above: Performed By: #### 2 38811075, 38647271, 2883130, 15595926, 99495917, 84931406, 70768910, 2334262, 5806810 ####[address] [place] [address] Hemoglobin (Bld) [Mass/Vol] 13.0 g/dL Low 13.5-17.5 [facility] Comment on above: Performed By: #### 2 78759112, 83493914, 8500199, 57394447, 22175195, 46466926, 55691522, 6906974, 4770654 ####[address] [place] [address] Lymphocytes (Bld) [#/Vol] 1.7 E9/L Normal 1.0-4.0 [facility] Comment on above: Performed By: #### 2 57500779, 78029905, 3182166, 09832744, 57457579, 10306287, 77055683, 7020943, 0462021 ####[facility] [address] [place] [address] Lymphocytes/100 WBC (Bld) 19.5 % Normal 14.0-50.0 [facility] Comment on above: Performed By: #### 2 91605518, 38140869, 0287557, 90562840, 16484185, 99386953, 95341615, 5592672, 9057580 ####[address] [place] [address] MCH (RBC) [Entitic mass] 28.5 pg Normal 27.0-34.0 [facility] Comment on above: Performed By: #### 2 59180736, 31946198, 7359407, 79765052, 03586699, 77951725, 04729386, 2298507, 8036788 ####[address] MCHC (RBC) [Mass/Vol] 32.8 g/dL Normal 31.4-36.0 [facility] Comment on above: Performed By: #### 2 32412218, 42096453, 7786166, 07083199, 70179458, 97560263, 23224194, 5079242, 6542101 ####[address] [address] MCV (RBC) [Entitic vol] 86.7 fL Normal 80.0-100.0 [facility] Comment on above: Performed By: #### 2 35255860, 70346048, 4730157, 73547061, 95113079, 75584266, 35916940, 9306793, 1757986 ####[address] [address] Monocytes (Bld) [#/Vol] 0.7 E9/L Normal 0.2-1.0 [facility] Comment on above: Performed By: #### 2 69084864, 49974858, 2594717, 46253842, 48395703, 46922592, 34526530, 9884600, 7607999 ####[facility] [address] [place] [address] Neutro Absolute 6.3 E9/L Normal 2.0-7.5 [facility] Comment on above: Performed By: #### 2 52082127, 86354952, 4135817, 49970126, 19837841, 85434181, 68367951, 9489370, 7628908 ####[facility] [address] [place] [address] Neutro Auto 69.7 % Normal 36.0-75.0 [facility] Comment on above: Performed By: #### 2 51693512, 16829888, 6841795, 08919695, 11769942, 77755926, 37285522, 1447109, 5131669 ####[address] [place] [address] Platelet 271.0 E9/L Normal 150.0-500.0 [facility] Comment on above: Performed By: #### 2 44457022, 80163648, 1774644, 57032295, 07655524, 45404064, 92903447, 1698462, 3183462 ####[address] [place] [address] Platelet mean volume (Bld) [Entitic vol] 7.5 fL Normal 6.4-10.8 [facility] Comment on above: Performed By: #### 2 38439521, 42503009, 3964922, 01757906, 21664506, 48753946, 71569021, 8547199, 4808017 ####[address] [place] [address] RBC 4.6 E12/L Normal 4.3-5.9 [facility] Comment on above: Performed By: #### 2 24623636, 46262822, 3662677, 19112639, 10023356, 97860930, 97907590, 5429636, 5226216 ####[address] [place] [address] WBC 9.0 E9/L Normal 4.0-11.0 [facility] Comment on above: Performed By: #### 2 14452124, 18612055, 9310046, 95337878, 03740610, 76566638, 03980625, 7963811, 5033501 ####[facility] [address] [place] [address] CHEMISTRYOrdered By: SYSTEM SYSTEM on 01-16-2024 CRP mg/dL Normal <=1.9mg/dL Remisol Chem Creatinine [Mass/Vol] 0.8 mg/dL Normal 0.5 - 1.3 mg/dL [facility] Chem eGFR 99 mL/min/1.73 m2 Normal >=59mL/min / 1.73 m2 Rem[facility] Chem CRPon 01-16-2024 CRP [Mass/Vol] mg/L Normal <=1.9 [facility] Comment on above: Performed By: #### 2 65131445, 13378810, 2823578, 59820288, 85894532, 85550768, 10569676, 0769916, 1571477 ####[facility] [address] [place] [address] Consent for Treatmenton 12-21 Consent for Treatment [id number] IFF Normal [facility] Creatinineon 01-16-2024 Creatinine [Mass/Vol] 0.8 mg/dL Normal 0.5-1.3 [facility] Comment on above: Order Comment: ct dr foster for stat creat and sent to main lab. no other tubes collected for other testing on order. [id number] 01/16/2024 07:11:44 EST Performed By: #### 2 106278, 60090408 ####[facility] [address] [place] [address] HEMATOLOGYOrdered By: SYSTEM SYSTEM on 01-16-2024 Basophils/100 WBC (Bld) 0.8 % Normal 0.0 - 2.0 % Rem[facility] Heme Basophils/Leukocytes Auto (Bld) [Pure # fraction] 0.1 E9/L Normal 0.0 - 0.2 E9/L [facility] Eosinophils (Bld) [#/Vol] 0.2 E9/L Normal 0.0 - 0.5 E9/L [facility] Eosinophils/100 WBC (Bld) 2.1 % Normal 0.0 - 8.0 % [facility] Erythrocyte distribution width (RBC) [Ratio] 12.9 % Normal 10.9 - 14.2 % [facility] Hematocrit (Bld) [Volume fraction] 39.7 % Normal 37.7 - 49.0 % [facility] Hemoglobin (Bld) [Mass/Vol] 13.0 g/dL Low 13.5 - 17.5 gm/dL [facility] Lymphocytes (Bld) [#/Vol] 1.7 E9/L Normal 1.0 - 4.0 E9/L [facility] Lymphocytes/100 WBC (Bld) 19.5 % Normal 14.0 - 50.0 % [facility] MCH (RBC) [Entitic mass] 28.5 pg Normal 27.0 - 34.0 pg [facility]e MCHC (RBC) [Mass/Vol] 32.8 g/dL Normal 31.4 - 36.0 gm/dL [facility] MCV (RBC) [Entitic vol] 86.7 fL Normal 80.0 - 100.0 fL [facility] Monocytes (Bld) [#/Vol] 0.7 E9/L Normal 0.2 - 1.0 E9/L [facility] Monocytes/100 WBC (Bld) 7.9 % Normal 4.0 - 14.0 % [facility] Neutro Absolute 6.3 E9/L Normal 2.0 - 7.5 E9/L [facility] Neutro Auto 69.7 % Normal 36.0 - 75.0 % [facility] Platelet 271.0 E9/L Normal 150.0 - 500.0 E9/L [facility] Platelet mean volume (Bld) [Entitic vol] 7.5 fL Normal 6.4 - 10.8 fL [facility] RBC 4.6 E12/L Normal 4.3 - 5.9 E12/L [facility] WBC 9.0 E9/L Normal 4.0 - 11.0 E9/L [facility] HEMATOLOGYOrdered By: Akhil Polanco on 01-16-2024 ESR (Bld) [Velocity] 19 mm/h Normal 0 - 19 mm/hr [facility] Physician Orderon 01-16-2024 Physician Order [id number]#1.00T IFF Normal [facility] Sed Rate Automatedon 024 ESR (Bld) [Velocity] 19 mm/h Normal 0-19 Fish er [facility] Comment on above: Performed By: #### 2 [id number], [id number], [id number], [id number], [id number], [id number], [id number], [id number], [id number] ####[facility] [address] [place] [address] eGFRon 01-16-2024 eGFR 99 mL/min/1.73 m2 Normal >=59 [facility] Comment on above: Order Comment: Order added by Discern Expert. Performed By: #### 2 [id number], [id number] ####[facility] [address] [place] [address] Physician Orderon 01-14-2024 Physician Order [id number]#1.00T IFF Normal [facility] Insurance Correspondenceon 0 01-11-2024 Insurance Correspondence [id number] 0TIFF Normal [facility] ECG 12 Leadon 12-14-2023 ECG revealed normal sinus rhythm with complete right bundle branch block [facility] Work Phone: ECG 12-LEADon 12-13-2023 ECG 12-LEAD Ventricular Rate 74 Atrial Rate 74 P-R Interval 196 QRS Duration 180 Q-T Interval 466 QTC Calculation(Bazett) 517 P Coolidge 38 R Coolidge -24 T Coolidge 15 QRS Count 12 Q Onset 218 P Onset 120 P Offset 180 T Offset 451 QTC Fredericia 500 Diagnosis Normal sinus rhythm Right bundle branch block Abnormal ECG When compared with ECG of 13-DEC-2023 06:52, No significant change was found Confirmed by Shay Macias ([id number]) on 12/20/2023 2:10:59 PM Normal [facility] Activated clotting timeon ACT Coag (Bld) [address] Comment on above: Result Comment: Targ et ACT range will vary based on the patient population, clinical status, and surgical intervention occurring. Performed By: #### 3 184-9 #### RADHA Peacock ([id number]) [facility] ([facility]) [id number] [place] [address] ACT Coag (Bld) [address] Comment on above: Result Comment: Targ et ACT range will vary based on the patient population, clinical status, and surgical intervention occurring. Performed By: #### 3 184-9 #### RADHA Peacock ([id number]) [facility] ([facility]) [address] [place] [address] ACT Coag (Bld) [address] Comment on above: Result Comment: Targ et ACT range will vary based on the patient population, clinical status, and surgical intervention occurring. Performed By: #### 3 184-9 #### RADHA Peacock ([id number]) [facility] ([facility]) [address] [place] [address] ACT Coag (Bld) [address] Comment on above: Result Comment: Targ et ACT range will vary based on the patient population, clinical status, and surgical intervention occurring. Performed By: #### 3 184-9 #### RADHA Peacock ([id number]) [facility] ([facility]) [address] [place] [address] ECG 12-LEADon 12-12-2023 ECG 12-LEAD Ventricular Rate 76 Atrial Rate 76 P-R Interval 196 QRS Duration 188 Q-T Interval 484 QTC Calculation(Bazett) 544 P Coolidge 37 R Coolidge 9 T Coolidge 18 QRS Count 12 Q Onset 216 P Onset 118 P Offset 181 T Offset 458 QTC Fredericia 523 Diagnosis Normal sinus rhythm Right bundle branch block Abnormal ECG No previous ECGs available Confirmed by Shay Macias ([id number]) on 12/20/2023 3:48:09 PM Normal [facility] Glucose Test strip manual (B ld) [Mass/Vol]on 12-12-2023 Glucose [Mass/Vol] 140 mg/dL High 74-[address] [facility] Comment on above: Result Comment: RN/Stacy Lee NOTIFIED Performed By: #### 2 341-6 #### RADHA Peacock ([id number]) [facility] ([facility]) [address] [place] [address] Glucose [Mass/Vol] 140 mg/dL High 74 - 99 mg/dL [facility] Comment on above: CHEY/ NOTIFIED Interpretation and review of laboratory results Abnormal [facility] CHEMISTRYOrdered By: SYSTEM SYSTEM on 12-05-2023 Creatinine [Mass/Vol] 0.8 mg/dL Normal 0.5 - 1.3 mg/dL [facility] Chem eGFR 99 mL/min/1.73 m2 Normal >=59mL/min / 1.73 m2 [facility] CHEMISTRYOrdered By: SYSTEM SYSTEM on 12-04-2023 Anion gap [Moles/Vol] 10 mmol/L Normal 6 - 16 mEq/L [facility] Calcium [Mass/Vol] 9.1 mg/dL Normal 8.9 - 11. 1 mg/dL [facility] Chloride [Moles/Vol] 103 mmol/L Normal 101 - 1 11 mmol/L [facility] CO2 [Moles/Vol] 29 mmol/L Normal 21 - 31 mmol/L [facility] Creatinine [Mass/Vol] 1.0 mg/dL Normal 0.5 - 1.3 mg/dL [facility] eGFR 84 mL/min/1.73 m2 Normal >=59mL/min / 1.73 m2 [facility] Glucose [Mass/Vol] 91 mg/dL Normal 55 - 199 mg/dL [facility] Potassium [Moles/Vol] 3.9 mmol/L Normal 3.5 - 5.3 mmol/L [facility] Sodium [Moles/Vol] 138 mmol/L Normal 135 - 145 mmol/L [facility] Urea nitrogen [Mass/Vol] 18 mg/dL Normal 5 - 21 mg/dL [facility] Urea nitrogen/Creatinine [Mass ratio] 18 mg/mg Normal 10 - 20 [facility] HEMATOLOGYOrdered By: Tara Cuello on 12-04-2023 Erythrocyte distribution width (RBC) [Ratio] 14.4 % High 10.9 - 14.2 % [facility] Hematocrit (Bld) [Volume fraction] 37.0 % Low 37.7 - 49.0 % [facility] Hemoglobin (Bld) [Mass/Vol] 12.6 g/dL Low 13.5 - 17.5 gm/dL [facility] MCH (RBC) [Entitic mass] 29.0 pg Normal 27.0 - 34.0 pg [facility] MCHC (RBC) [Mass/Vol] 34.1 g/dL Normal 31.4 - 36.0 gm/dL [facility] MCV (RBC) [Entitic vol] 85.1 fL Normal 80.0 - 100.0 fL [facility] Platelet mean volume (Bld) [Entitic vol] 7.4 fL Normal 6.4 - 10.8 fL [facility] Platelets (Bld) [#/Vol] 256.0 E9/L Normal 150. 0 - 500.0 E9/L [facility] RBC (Bld) [#/Vol] 4.4 E12/L Normal 4.3 - 5.9 E12/L [facility] WBC corrected for nucl RBC Auto (Bld) [#/Vol] 8.5 E9/L Normal 4.0 - 11.0 E9/L [facility] CHEMISTRYOrdered By: María Stanton on 10-26-2023 Prostate specific Ag [Mass/Vol] 0.2 ng/mL Normal 0.1 - 3.5 ng/mL [facility] Comment on above: Interpretive Data: T he concentration of PSA determined by different manufacturers can vary due to differences in assay methods and reagent specificity. Values obtained from different assay methods cannot be used interchangeably. The methodology used for this result was chemiluminescence using [employer] Access Hybritech PSA reagent. ECG 12 lead ECGon 10-03-2023 ECG 12 lead ECG [place] [address] Electrocardiograph Report Signed Patient: Philippe Ray MR#: [id number] 7 : 1960 Acct:[id number] Age/Sex: 63 / M ADM Date: 10/03/23 Loc: Room: Type: [facility] Attending Dr: Mare Hughes MD Ordering Provider: Mare Hughes MD, [facility] Date of Service: 10/03/23 ECG/ECG 12 lead ECG: Pre-cardioversion rhythm assessment Copies to: Test Reason : Blood Pressure : / mmHG Vent. Rate : 060 BPM Atrial Rate : 060 BPM P-R Int : 182 ms QRS Dur : 172 ms QT Int : 502 ms P-R-T Axes : 003 094 027 degrees QTc Int : 502 ms Normal sinus rhythm Right bundle branch block Abnormal ECG When compared with ECG of 10-AUG-2023 09:20, Vent. rate has decreased BY 32 BPM Confirmed by SAMANTHA MCALLISTER MD (Critical access hospital) on 10/03/2023 10:28:01 PM Referred By: Mare Hughes Electronically Signed By:SAMANTHA MCALLISTER MD Transcribed By: [facility] Signed By Samantha Mcallister MD 1 12/03/222227 Normal [facility] Carbon dioxide, total [Moles /volume] in Serum or PlasmaOrdered By: Mare Hughes on 08-10-2023 CO2 [Moles/Vol] 30.9 mmol/L Normal 21.0-31.0 [facility] Comment on above: Performed By: #### L YTES #### [facility] [address] [place] [address] [place] Chloride [Moles/volume] in S liat or PlasmaOrdered By: Mare Hughes on 08-10-2023 Chloride [Moles/Vol] 105 mmol/L Normal 98-107 [facility] Comment on above: Performed By: #### L YTES #### [facility] [address] [place] [address] [place] ECG 12 lead ECGon 08-10-2023 ECG 12 lead ECG [facility] [address] [place] [address] [place] [address] Electrocardiograph Report Signed Patient: Philippe Ray MR#: [id number] 7 : 1960 Acct:[id number] Age/Sex: 63 / M ADM Date: 08/10/23 Loc: EL Room: Type: [facility] Attending Dr: Mare Hughes MD Ordering Provider: Mare Hughes MD, [facility] Date of Service: 08/10/23 ECG/ECG 12 lead ECG: Pre-cardioversion rhythm assessment Copies to: Test Reason : Blood Pressure : / mmHG Vent. Rate : 069 BPM Atrial Rate : 300 BPM P-R Int : 000 ms QRS Dur : 172 ms QT Int : 442 ms P-R-T Axes : 000 091 039 degrees QTc Int : 473 ms Atrial fibrillation Right bundle branch block Abnormal ECG No previous ECGs available Confirmed by SAUL HERNANDEZ [facility], MARE ([id number]) on 08/10/2023 12:40:30 PM Referred By: Mare Hughes Electronically Signed By:MARE HUGHES MD [facility] Transcribed By: [facility] Signed By Mare Hughes MD, [facility] 08/10/23 1240 Normal [facility] ECG post procedureon 023 ECG post procedure [place] [address] Electrocardiograph Report Signed Patient: Philippe Ray MR#: [id number] 7 : 1960 Acct:[id number] Age/Sex: 63 / M ADM Date: 08/10/23 Loc: EL Room: Type: [facility] Attending Dr: Mare Hughes MD Ordering Provider: Mare Hughes MD, [facility] Date of Service: 08/10/23/ ECG/ECG post procedure: CV Copies to: Test Reason : Blood Pressure : 150/105 mmHG Vent. Rate : 092 BPM Atrial Rate : 092 BPM P-R Int : 196 ms QRS Dur : 172 ms QT Int : 428 ms P-R-T Axes : 016 088 021 degrees QTc Int : 529 ms Normal sinus rhythm Right bundle branch block Abnormal ECG When compared with ECG of 10-AUG-2023 07:55, (Unconfirmed) Sinus rhythm has replaced Atrial fibrillation Confirmed by SAUL HERNANDEZ [facility], [place] ([id number]) on 08/10/2023 12:40:46 PM Referred By: Mare Hughes Electronically Signed By:MARE HUGHES MD [facility] Transcribed By: MUS Signed By Mare Hughes MD, [facility] 08/10/23 1240 Normal [facility] No Panel Informationon 08-10 8.7\S\8.7 Normal 6.0-15.0 [facility] [address] DO Work Phone: Comment on above: PERFORMED BY:[facility] [place] [phone] MEDICAL DIRECTORAMANDA QUEZADA M.D. 30.9\S\30.9 Normal 21.0-31.0 [facility] [address] DO Work Phone: [phone] 105\S\105 Normal 98-107 [facility] [address] DO Work Phone: [phone] 3.6\S\3.6 Normal 3.5-5.1 [facility] [address] DO Work Phone: [phone] 141\S\141 Normal 136-145 [facility] [address] DO Work Phone: [phone] Potassium [Moles/volume] in Serum or PlasmaOrdered By: Mare Hughes on 08-10-2023 Potassium [Moles/Vol] 3.6 mmol/L Normal 3.5-5.1 [facility] Comment on above: Performed By: #### L YTES #### [facility] [address] [place] [address] [facility] Serum or plasma anion gap de terminationOrdered By: Mare Hughes on 08-10-2023 Anion gap [Moles/Vol] 8.7 mmol/L Normal 6.0-15.0 [facility] Comment on above: Result Comment: PERF ORMED BY: [facility] [address] [facility] [place] [address] PATHOLOGIST CLINICAL EDUCATION CONSULTANT AMANDA QUEZADA M.D. Performed By: #### L YTES #### [facility] [address] [place] [id number] [facility] Sodium [Moles/volume] in Ser um or PlasmaOrdered By: Mare Hughes on 08-10-2023 Sodium [Moles/Vol] 141 mmol/L Normal 136-145 [facility] Comment on above: Performed By: #### L YTES #### [facility] [address] [place] [id number] [facility] Office Visit (Cardiology)on 08-01-2023 Follow-up visit Diagnoses/Problems Assessed Paroxysmal atrial fibrillation with RVR (427.31) (I48.0) Benign essential hypertension (401.1) (I10) Right bundle branch block (RBBB) on electrocardiography (426.4) (I45.10) Overweight with body mass index (BMI) of 26 to 26.9 in adult (278.02,V85.22) (E66.3,Z68.26) Never a smoker Persistent atrial fibrillation (427.31) (I48.19) Kidney mass (593.9) (N28.89) High risk medication use (V58.69) (Z79.899) Orders Overweight with body mass index (BMI) of 26 to 26.9 in adult Healthy Weight Tips; Status:Complete - Retrospective Authorization; Done: [id number] Some eating tips that can help you lose weight.; Status:Complete - Retrospective Authorization; Done: [id number] Paroxysmal atrial fibrillation with RVR IO EKG Electrocardiogram- 12 Lead; Status:Complete; Done: [id number] Persistent atrial fibrillation Cardioversion; Status:Active - Retrospective Authorization; Requested for:[id number]; SocHx: Never a smoker Tobacco Use Screening; Status:Complete; Done: [id number] Patient Instructions Please bring all medicines, vitamins, and herbal supplements with you when you come to the office. Prescriptions will not be filled unless you are compliant with your follow up appointments or have a follow up appointment scheduled as per instruction of your physician. Refills should be requested at the time of your visit. Cardioversion Ablation discussed Follow-up after testing completed The provider reviewed the following test(s) and result(s) with the patient: ECG Chief Complaint PHILIPPE RAY is being seen for a 3 week follow-up of. Patient is in the office for follow-up for paroxysmal atrial fibrillation. Recently had recurrent atrial fibrillation requiring institution of therapy with anticoagulation and antiarrhythmic therapy with flecainide. His rate is controlled but he still has significant limitations on activities due to dyspnea. By dates that he is very active person but this has actually put a hamper on his activities. He has no trouble taking the flecainide and Xarelto. Will complete 1 more week of anticoagulation for cardioversion which will be scheduled in 8 days. The procedure with its benefit and potential risks were discussed with the patient is a full endorsement to proceeding as such. His EKG today confirmed atrial fibrillation with controlled ventricular rate and right bundle branch block. Assessment/recommendati ons: 1?paroxysmal persistent atrial fibrillation. We will continue anticoagulation and flecainide and schedule cardioversion next week. Long-term therapy with ablation was discussed with the patient will be pursuing that option as well. He has no structural heart disease. 2?hypertension on medical therapy under control 3?history of benign right renal mass, status postresection at the [facility] 2021. 4?high risk medication with antiarrhythmics and anticoagulants. Well-tolerated. 5?complete right bundle branch block which is presently inconsequential. Surgical History Problems History of Back surgery History of Complete colonoscopy History of Hip replacement History of Knee surgery History of Lumbar discectomy History of Tonsillectomy History of Vasectomy Past Medical History Problems History of Pre-operative cardiovascular examination (V72.81) (Z01.810) Resolved Date: 13 Dec 2022 Current Meds Medication NameInstruction Flecainide Acetate 50 MG Oral TabletTAKE 1 TABLET EVERY 12 HOURS DAILY. hydroCHLOROthiazide 12.5 MG Oral TabletTAKE 1 TABLET DAILY. Metoprolol Succinate ER 25 MG Oral Tablet Extended Release 24 HourTAKE 1 TABLET DAILY. Norvasc 10 MG Oral TabletTAKE 1 TABLET DAILY DIRECTED. Omeprazole 20 MG Oral Capsule Delayed ReleaseTAKE 2 CAPSULES DAILY. Xarelto 20 MG Oral TabletTake 1 tablet daily Allergies Medication No Known Drug Allergies Recorded By: Tequila Montero; 01/11/2022 9:14:41 AM Social History Problems Never a smoker No caffeine use No illicit drug use Occasional alcohol use Review of Systems Constitutional: not feeling tired. Cardiovascular: chest pain and palpitations, but no intermittent leg claudication and as noted in HPI. Respiratory: shortness of breath during exertion, but no cough and no shortness of breath. Gastrointestinal: no change in bowel habits and no blood in stools. Integumentary: no skin rashes. Neurological: dizziness, but no seizures and no frequent falls. All other systems have been reviewed and are negative for complaint. Vitals Vital Signs Recorded: 01Aug2023 10:50AM Heart Rate86, Apical Oirtjgae225, RUE, Sitting Dufxqlmhc04, RUE, Sitting Height6 ft Nrqeyu034 lb BMI Rogqlyyvpb58.99 kg/m2 BSA Calculated2.13 Tobacco Useb) No PHQ-2 Patient Declined/Screening not indicatedYes Falls Screening (Age 18+)c) Not medically indicated EKG done in office today Physical Exam Constitutional: alert and in no acute distress. Neck: neck is supple, symme (more content not included)... Normal [facility] Tobacco Screening.on 023 Fall risk assessment c) Not medically indicated [facility] [address] DO Work Phone: Tobacco use status [facility] b) No [facility] [employer] 250 DO Work Phone: Tobacco Screening. Yes [facility] [address] DO Work Phone: Office Visit (Cardiology)on 12-13-2022 Follow-up visit Diagnoses/Problems Assessed Benign essential hypertension (401.1) (I10) Never a smoker Overweight with body mass index (BMI) of 27 to 27.9 in adult (278.02,V85.23) (E66.3,Z68.27) Right bundle branch block (RBBB) on electrocardiography (426.4) (I45.10) Kidney mass (593.9) (N28.89) Kidney stone on right side (592.0) (N20.0) Paroxysmal atrial fibrillation with RVR (427.31) (I48.0) Orders Atrial fibrillation Renew: Aspirin EC 81 MG Oral Tablet Delayed Release; TAKE 1 TABLET DAILY Healthy Weight Tips; Status:Complete - Retrospective Authorization; Done: 13Dec2022 IO EKG Electrocardiogram- 12 Lead; Status:Complete; Done: 13Dec2022 Some eating tips that can help you lose weight.; Status:Complete - Retrospective Authorization; Done: 13Dec2022 SocHx: Never a smoker Tobacco Use Screening; Status:Complete; Done: 13Dec2022 Patient Instructions Please bring all medicines, vitamins, and herbal supplements with you when you come to the office. Prescriptions will not be filled unless you are compliant with your follow up appointments or have a follow up appointment scheduled as per instruction of your physician. Refills should be requested at the time of your visit. Retrieve lab from [facility] Follow up in 1 year. The provider reviewed the following test(s) and result(s) with the patient: ECG Chief Complaint PHILIPPE RAY is being seen for a 3 month follow-up of. Patient seen in the office for follow-up for the problems noted below. Since she was last seen in the office. 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 He also had left kidney stone removed with lithotripsy without complications. 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 When he was last seen in the office year ago he was having atrial fibrillation which apparently resolved spontaneously with no recurrences. His GSN3AC9-YMJh score is only 1 and therefore no anticoagulation was provided. He does not recall any events of recurrent cardiac arrhythmias. He denies orthopnea PND or lower extremity edema and no chest pain. His pressure is under control. He had blood work done in October 2022 at his PCP which was requested. He has chronic right bundle branch block. Assessment/recommendati ons: 1?paroxysmal atrial fibrillation that is asymptomatic, the patient has a very small load of atrial fibrillation. EFN2KU7-ZYBj score is 1. No anticoagulation is in place. His rate is spontaneously controlled. No further cardiac action is needed. Patient had normal echocardiogram and normal nuclear stress test 2021. 2?hypertension on medical therapy under control 3?history of benign right renal mass, status postresection at the [facility] 2021. Surgical History Problems History of Back surgery History of Complete colonoscopy History of Hip replacement History of Knee surgery History of Lumbar discectomy History of Tonsillectomy History of Vasectomy Past Medical History Problems History of Pre-operative cardiovascular examination (V72.81) (Z01.810) Resolved Date: 13 Dec 2022 Current Meds Medication NameInstruction Aspirin EC 81 MG Oral Tablet Delayed ReleaseTAKE 1 TABLET DAILY. hydroCHLOROthiazide 12.5 MG Oral TabletTAKE 1 TABLET DAILY. Norvasc 10 MG Oral TabletTAKE 1 TABLET DAILY DIRECTED. Omeprazole 20 MG Oral Capsule Delayed ReleaseTAKE 2 CAPSULES DAILY. Patient did not bring medication list or bottles. Updated verbally with patient Allergies Medication No Known Drug Allergies Recorded By: Tequila Montero; 01/11/2022 9:14:41 AM Social History Problems Never a smoker No caffeine use No illicit drug use Occasional alcohol use Review of Systems Constitutional: not feeling tired. Cardiovascular: no intermittent leg claudication and as noted in HPI. Respiratory: no cough and no shortness of breath. Gastrointestinal: no change in bowel habits and no blood in stools. Integumentary: no skin rashes. Neurological: no seizures and no frequent falls. All other systems have been reviewed and are negative for complaint. Vitals Vital Signs Recorded: 13Dec2022 09:22AM Heart Rate92, L Radial Iywvusri059, LUE, Sitting Lfnmsuczk67, LUE, Sitting Height6 ft Deaans856 lb BMI Pfrftybuzm99.13 kg/m2 BSA Calculated2.13 Tobacco Useb) No PHQ-2 #1. Over the last 2 weeks have you felt down, depressed or hopeless? (If yes, answer PHQ-9 below)No PHQ-2 #2. Over the last 2 weeks have you felt little interest or pleasure in doing things? (If yes, answer PHQ-9 below)No Falls Screening (Age 18+)a) No falls within the last year EKG done in office today. Physical Exam Constitutional: alert and in no acute distress. Neck: neck is supple, symmetric, trachea midline, no masses and no thyromegaly . Pulmonary: no increased work of breathing or signs of respiratory distress and lungs clear to auscultation. Cardiovascular: carotid pulses 2+ bilaterally with no bruit , JVP (more content not included)... Normal [facility] Tobacco Screening.on 023 Adult depression screening assessment No [facility] [employer] 600 DO Work Phone: Fall risk assessment a) No falls within the last year [facility] [employer] [address] DO Work Phone: Tobacco use status CP b) No M [facility] [employer] [address] DO Work Phone: CHEMISTRYOrdered By: SYSTEM SYSTEM on 08-09-2022 Anion gap [Moles/Vol] 13 mmol/L Normal 6 - 16 mEq/L [facility] Calcium [Mass/Vol] 8.8 mg/dL Low 8.9 - 11. 1 mg/dL [facility] Chloride [Moles/Vol] 99 mmol/L Low 101 - 1 11 mmol/L [facility] CO2 [Moles/Vol] 25 mmol/L Normal 21 - 31 mmol/L [facility] Creatinine [Mass/Vol] 0.8 mg/dL Normal 0.5 - 1.3 mg/dL [facility] GFR/1.73 sq M.predicted among blacks MDRD (S/P/Bld) [Vol rate/Area] mL/min/1.73 m2 Normal >=59mL/min/ 1.73 m2 [facility] Chem S GFR/1.73 sq M.predicted among non-blacks MDRD (S/P/Bld) [Vol rate/Area] mL/min/1.73 m2 Normal >=59mL/min/ 1.73 m2 [facility] Chem S Glucose [Mass/Vol] 121 mg/dL Normal 55 - 199 mg/dL [facility] Potassium [Moles/Vol] 3.6 mmol/L Normal 3.5 - 5.3 mmol/L [facility] Sodium [Moles/Vol] 133 mmol/L Low 135 - 145 mmol/L [facility] Troponin I.cardiac [Mass/Vol] 5.60 pg/mL Low 15.90 - 38.40 pg/mL [facility] Urea nitrogen [Mass/Vol] 17 mg/dL Normal 5 - 21 mg/dL [facility] Urea nitrogen/Creatinine [Mass ratio] 21 mg/mg High 10 - 20 [facility] COAGULATIONOrdered By: Martín Anton on 08-09-2022 aPTT Coag (PPP) [Time] 31.4 s Normal 25.1 - 36.5 second(s) [facility] INR Coag (PPP) [Relative time] 1.1 {INR} Invalid Interpretation Code [facility] PT Coag (PPP) [Time] 12.1 s Normal 9.4 - 1 2.5 second(s) [facility] HEMATOLOGYOrdered By: SYSTEM SYSTEM on 08-09-2022 Basophils/100 WBC (Bld) 0.6 % Normal 0.0 - 2.0 % [facility] HemeAutoSS Basophils/Leukocytes Auto (Bld) [Pure # fraction] 0.1 E9/L Normal 0.0 - 0.2 E9/L [facility]SS Eosinophils/100 WBC (Bld) 0.2 % Normal 0.0 - 8.0 % [facility]eAutoSS Eosinophils/Leukocytes Auto (Bld) [Pure # fraction] 0.0 E9/L Normal 0.0 - 0.5 E9/L [facility]SS Lymphocytes/100 WBC (Bld) 5.2 % Low 14.0 - 50.0 % [facility]eAutoSS Lymphocytes/Leukocytes Auto (Bld) [Pure # fraction] 0.6 E9/L Low 1.0 - 4.0 E9/L [facility]eAutoSS Monocytes/100 WBC (Bld) 5.9 % Normal 4.0 - 14.0 % [facility]eAutoSS Monocytes/Leukocytes Auto (Bld) [Pure # fraction] 0.7 E9/L Normal 0.2 - 1.0 E9/L [facility] Neutrophils/100 WBC (Bld) 88.1 % High 36.0 - 75.0 % [facility]eAutoSS Neutrophils/Leukocytes Auto (Bld) [Pure # fraction] 10.9 E9/L High 2.0 - 7.5 E9/L [facility] HEMATOLOGYOrdered By: Monik Soliz on 08-09-2022 Erythrocyte distribution width (RBC) [Ratio] 13.0 % Normal 10.9 - 14.2 % [facility] Hematocrit (Bld) [Volume fraction] 34.8 % Low 37.7 - 49.0 % [facility] Hemoglobin (Bld) [Mass/Vol] 11.9 g/dL Low 13.5 - 17.5 gm/dL [facility] MCH (RBC) [Entitic mass] 28.5 pg Normal 27.0 - 34.0 pg [facility] MCHC (RBC) [Mass/Vol] 34.1 g/dL Normal 31.4 - 36.0 gm/dL [facility] MCV (RBC) [Entitic vol] 83.3 fL Normal 80.0 - 100.0 fL [facility] Platelet mean volume (Bld) [Entitic vol] 7.4 fL Normal 6.4 - 10.8 fL [facility] Platelets (Bld) [#/Vol] 214.0 E9/L Normal 150. 0 - 500.0 E9/L [facility] RBC (Bld) [#/Vol] 4.2 E12/L Low 4.3 - 5.9 E12/L [facility] WBC corrected for nucl RBC Auto (Bld) [#/Vol] 12.3 E9/L High 4.0 - 11.0 E9/L [facility] URINALYSISOrdered By: Martín mcdaniel on 08-09-2022 Bilirubin Ql (U) Negative (08/09/22 2:47 PM) Normal Negative [facility] UA Auto SS Clarity (U) Clear (08/09/22 2:47 PM) Normal Clear [facility]A Auto SS Color (U) Straw *ABN* (08/09/22 2:47 PM) Invalid Interpretation Code Yellow [facility]A Auto SS Epithelial cells.squamous LM.HPF (Urine sed) [#/Area] 0-2 /HPF Normal 0-2/HPF [facility]A Aut o SS Glucose Test strip (U) [Mass/Vol] Negative (08/09/22 2:47 PM) Normal Negative [facility]A Auto SS Hemoglobin Ql (U) Trace *ABN* (08/09/22 2:47 PM) Invalid Interpretation Code Negative [facility]A Auto SS Ketones (U) [Mass/Vol] Negative (08/09/22 2:47 PM) Normal Negative [facility] Auto SS Cashiers.plasma/Cashiers. RBC (Bld) [Mass ratio] 0-3 /HPF Normal 0-3/HPF [facility] UA A uto SS Nitrite Ql (U) Negative (08/09/22 2:47 PM) Normal Negative [facility] Auto SS pH (U) 6.5 *NA* (08/09/22 2:47 PM) Invalid Interpretation Code 5.0 - 9.0 [facility]A Auto SS Protein (U) [Mass/Vol] Negative (08/09/22 2:47 PM) Normal Negative [facility] Auto SS Specific gravity (U) [Rel density] <=1.005 *NA* (08/09/22 2:47 PM) Invalid Interpretation Code 1.005 - 1.030 [place] UA Spec Desc Clean Catch (08/09/22 2:47 PM) Normal [facility] Auto SS Urobilinogen Qn (U) 0.7384924 {[place]'U}/dL Normal 0.0 - 1.0 EU/dL [facility] Auto SS WBC Auto Ql (U) Negative (08/09/22 2:47 PM) Normal Negative [place] [facility] Auto SS WBC LM.HPF (Urine sed) [#/Area] 0-5 /HPF Normal 0-5/HPF [place] [facility] Auto SS CNOVon 02-09-2022 CNOV Office Visit (UROLMN ) PHILIPPE RAY ([id number]) 1960 Date Time Provider Department 02/09/22 2:30 PM PHIL KAN During your visit today, we recorded the following information about you: Phil Kan MD 02/13/2022 12:43 PM Signed REASON FOR VISIT: Follow up for renal mass HPI: 61 year old male with history of right renal mass who presents for follow-up. Doing well post op. Denies issues urinating. Has a good appetite, denies nausea or vomiting. 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 Kidney, right lateral, biopsy: - Renal parenchyma, negative for neoplasm. B. Kidney, right medial, biopsy: - Renal parenchyma with focal eosinophilic tubules. C. Kidney, right inferior, biopsy: - Renal parenchyma, negative for neoplasm. D. Kidney, right, partial nephrectomy: - Low-grade oncocytic tumor - see Comment. - 4.0 cm greatest dimension. - No definite involvement of parenchymal margin. - Small angiomyolipoma within the tumor, 2 mm. LABS: Creatinine Date Value Ref Range Status 01/27/2022 0.88 0.73 - 1.22 mg/dL Final 01/26/2022 0.96 0.73 - 1.22 mg/dL Final 01/25/2022 0.85 0.73 - 1.22 mg/dL Final 01/23/2022 0.66 (L) 0.73 - 1.22 mg/dL Final No results found for: PSA URINALYSIS: Specific [place], Ur Date Value Ref Range Status 02/09/2022 1.011 1.005 - 1.030 Final Glucose, Urine Date Value Ref Range Status 02/09/2022 Negative Negative Final Bilirubin, Urine Date Value Ref Range Status 02/09/2022 Negative Negative Final Ketones, Urine Date Value Ref Range Status 02/09/2022 Negative Negative Final Hemoglobin/Blood,Ur Date Value Ref Range Status 02/09/2022 3+ (A) Negative Final Protein, Urine Date Value Ref Range Status 02/09/2022 Negative Negative Final Nitrites Date Value Ref Range Status 02/09/2022 Negative Negative Final WBC, Urine Date Value Ref Range Status 02/09/2022 0-5 /HPF 0-5 /HPF Final IMAGING: None ALLERGIES: ALLERGIES No Known Allergies MEDICATIONS: Current Outpatient Medications Medication Sig - aspirin 81 mg cap Take by mouth. - amLODIPine (NORVASC) 10 mg tablet Take 10 mg by mouth once daily. - hydroCHLOROthiazide (HYDRODIURIL, ESIDRIX) 12.5 mg tablet Take 12.5 mg by mouth once daily. - omeprazole (PRILOSEC) 20 mg capsule Take 20 mg by mouth once daily. - docusate sodium (COLACE) 100 mg capsule Take 1 capsule by mouth twice daily. (Patient not taking: Reported on 02/09/2022 ) No current facility-administered medications for this visit. HISTORIES PAST MEDICAL HISTORY Diagnosis Date - Atrial fibrillation (HCC) 01/23/2022 - GERD (gastroesophageal reflux disease) 01/23/2022 - HTN (hypertension) 01/23/2022 PAST SURGICAL HISTORY Procedure Laterality Date - PAST SURGICAL HISTORY OF Kidney stone - PAST SURGICAL HISTORY OF Ganglion cyst - PAST SURGICAL HISTORY OF Deviated septum - PAST SURGICAL HISTORY OF Bilateral Hip replacement - PAST SURGICAL HISTORY OF Vasectomy - TONSILLECTOMY HX Social History Tobacco Use - Smoking status: Never Smoker - Smokeless tobacco: Never Used Substance Use Topics - Alcohol use: Yes Alcohol/week: 2.0 standard drinks Types: 2 Cans of Beer (12oz) per week Comment: 2-3 drinks per week - Drug use: Never FAMILY HISTORY Problem Relation Age of Onset - Anesthesia Problems No Family History REVIEW OF SYSTEMS General: No weight loss, malaise or fevers. Genitourinary: No history of dysuria, frequency or incontinence The remainder of the ROS was reviewed and negative. PHYSICAL EXAMINATION There were no vitals taken for this visit. Constitutional: Well appearing, alert, in no acute distress and well-hydrated, well nourished Skin: Skin color, texture, turgor normal, no suspicious rashes or lesions Eyes: Normocephalic, no masses, lesions, tenderness or abnormalities Neuro: Supple, no adenopathy; thyroid symmetric, normal size, no bruits Respiratory: no wheezing or rhonchi Cardiovascular: RRR without murmur, gallop, or rubs. No ectopy, Not examined Gastrointestinal: Normal abdominal exam. Lap sites present, clean, dry and intact Musculoskeletal: Extremities normal. No deformities, edema, or skin discoloration. Good capillary refill. IMPRESSION: This is a 61 year old male with history of right (more content not included)... Normal [facility] URINALYSIS, REFLEX MICROSCOP ICon 02-09-2022 Bilirubin Ql (U) Negative Normal [facility] Comment on above: Order Comment: Speci men Type: BLOOD SPECIMEN Ordering Facility: [facility] Address: [address] [place] [address] Performed By: #### 5 7021-8 #### [facility] CLIA [id number] [address] [place] [address] [place] [address] [place] Clarity (Unsp spec) Clear Normal Clear [facility] Comment on above: Order Comment: Speci men Type: BLOOD SPECIMEN Ordering Facility: [facility] Address: [address] [place] [address] Performed By: #### 5 7021-8 #### [facility] CLIA [id number] [address] [place] [address] [place] Color (U) Light Yellow Normal Yellow [facility] Comment on above: Order Comment: Speci men Type: BLOOD SPECIMEN Ordering Facility: [facility] Address: [address] [place] [address] Performed By: #### 5 7021-8 #### [facility] CLIA [id number] [address] [place] [address] [place] Glucose Test strip (U) [Mass/Vol] Negative Normal Negative [facility] Comment on above: Order Comment: Speci men Type: BLOOD SPECIMEN Ordering Facility: [facility] Address: [address] [place], [place] [address] Performed By: #### 5 7021-8 #### [facility] CLIA [id number] [address] [place] [address] [place] Hemoglobin Ql (U) 3+ Abnormal Negative [facility] Comment on above: Order Comment: Speci men Type: BLOOD SPECIMEN Ordering Facility: [facility] Address: [address] [place] [address] Performed By: #### 5 7021-8 #### [facility] CLIA [id number] [address] [place] [address] [place] Ketones Ql (U) Negative Normal Negative [facility] Comment on above: Order Comment: Speci men Type: BLOOD SPECIMEN Ordering Facility: [facility] Address: [address] [place] [address] Performed By: #### 5 7021-8 #### [facility] CLIA [id number] [address] [place] [address] [place] Leukocyte esterase Test strip Ql (U) Negative Normal Negative [facility] Comment on above: Order Comment: Speci men Type: BLOOD SPECIMEN Ordering Facility: [facility] Address: [address] [place], [place] [address] Performed By: #### 5 7021-8 #### [facility] CLIA [id number] [address] [place] [address] [place] Nitrite Ql (U) Negative Normal Negative [facility] Comment on above: Order Comment: Speci men Type: BLOOD SPECIMEN Ordering Facility: [facility] Address: [address] [place] [address] Performed By: #### 5 7021-8 #### [facility] CLIA [id number] [address] [place] [address] [place] pH (U) 5.5 [pH] Normal 5.0-8.0 [facility] Comment on above: Order Comment: Speci men Type: BLOOD SPECIMEN Ordering Facility: [facility] Address: [address] [place], [place] [address] Performed By: #### 5 7021-8 #### [facility] CLIA [id number] [address] [place] [address] [place] Protein (U) [Mass/Vol] Negative Normal Negative [facility] Comment on above: Order Comment: Speci men Type: BLOOD SPECIMEN Ordering Facility: [facility] Address: [address] [place], [place] [address] Performed By: #### 5 7021-8 #### [facility] CLIA [id number] [address] [place] [address] [place] RBC LM.HPF (Urine sed) [#/Area] 0-3 /HPF Normal 0-3 /HPF [facility] Comment on above: Order Comment: Speci men Type: BLOOD SPECIMEN Ordering Facility: [facility] Address: [address] [place], [place] [address] Performed By: #### 5 7021-8 #### [facility] CLIA [id number] [address] [place] [address] [place] Specific gravity (U) [Rel density] 1.011 Normal 1.005-1.030 [facility] Comment on above: Order Comment: Speci men Type: BLOOD SPECIMEN Ordering Facility: [facility] Address: [address] [place] [address] Performed By: #### 5 7021-8 #### [facility] CLIA [id number] [address] [place] [address] [place] Urobilinogen Ql (U) Negative Normal Negative [facility] Comment on above: Order Comment: Speci men Type: BLOOD SPECIMEN Ordering Facility: [facility] Address: [address] [place] [address] Performed By: #### 5 7021-8 #### [facility] CLIA [id number] [address] [place] [address] [place] WBC LM.HPF (Urine sed) [#/Area] 0-5 /HPF Normal 0-5 /HPF [facility] Comment on above: Order Comment: Speci men Type: BLOOD SPECIMEN Ordering Facility: [facility] Address: [address] [place], [place] [address] Performed By: #### 5 7021-8 #### [facility] CLIA [id number] [address] [place] [address] [place] Basic metabolic 2000 panelon 01-27-2022 Anion gap [Moles/Vol] 8 mmol/L Low 9-18 [facility] Comment on above: Order Comment: Speci men Type: BLOOD SPECIMEN Ordering Facility: [facility] Address: [address] [place], [place] [address] Performed By: #### 5 7021-8 #### [facility] CLIA [id number] [address] [place] [address] [place] Calcium [Mass/Vol] 8.8 mg/dL Normal 8.5-10.2 [facility] Comment on above: Order Comment: Speci men Type: BLOOD SPECIMEN Ordering Facility: [facility] Address: [address] [place], [place] [address] Performed By: #### 5 7021-8 #### [facility] CLIA [id number] [address] [place] [address] [place] Chloride [Moles/Vol] 104 mmol/L Normal 97-105 [facility] Comment on above: Order Comment: Speci men Type: BLOOD SPECIMEN Ordering Facility: [facility] Address: [address] [place] [address] Performed By: #### 5 7021-8 #### [facility] CLIA [id number] [address] [place] [address] [place] CO2 [Moles/Vol] 27 mmol/L Normal 22-30 [facility] Comment on above: Order Comment: Speci men Type: BLOOD SPECIMEN Ordering Facility: [facility] Address: [address] [place], [place] [address] Performed By: #### 5 7021-8 #### [facility] CLIA [id number] [address] [place] [address] [place] Creatinine [Mass/Vol] 0.88 mg/dL Normal 0.73-1.22 [facility] Comment on above: Order Comment: Speci men Type: BLOOD SPECIMEN Ordering Facility: [facility] Address: [address] [place], [place] [address] Performed By: #### 5 7021-8 #### [facility] CLIA [id number] [address] [place] [address] [place] ESTIMATED GLOMERULAR FILTRATION RATE 98 mL/min/1.73m??? Normal >=60 [facility] Comment on above: Order Comment: Speci men Type: BLOOD SPECIMEN Ordering Facility: [facility] Address: [address] [place], [place] [address] Result Comment: Bronwyn mated Glomerular Filtration Rate (eGFR) is calculated using the 2020 CKD-EPI creatinine equation. This equation utilizes serum creatinine, sex, and age as parameters. The creatinine assay has traceable calibration to isotope dilution-mass spectrometry. Refer to KDIGO guidelines for clinical interpretation. In patients with unstable renal function, e.g. those with acute kidney injury, the eGFR may not accurately reflect actual GFR. Performed By: #### 5 7021-8 #### [facility] CLIA [id number] [address] [place] [address] [place] Glucose [Mass/Vol] 102 mg/dL High 74-99 [facility] Comment on above: Order Comment: Sabina colin Type: BLOOD SPECIMEN Ordering Facility: [facility] Address: [address] [place] [address] Result Comment: The [place] [employer] (ADA) provides guidance for cutoff values for fasting glucose and random glucose. The ADA defines fasting as no caloric intake for at least 8 hours. Fasting plasma glucose results between 100 to 125 mg/dL indicate increased risk for diabetes (prediabetes). Fasting plasma glucose results greater than or equal to 126 mg/dL meet the criteria for diagnosis of diabetes. In the absence of unequivocal hyperglycemia, results should be confirmed by repeat testing. In a patient with classic symptoms of hyperglycemia or hyperglycemic crisis, random plasma glucose results greater than or equal to 200 mg/dL meet the criteria for diagnosis of diabetes. Reference: Standards of Medical Care in Diabetes 2016, [place] [employer]. Diabetes Care. 2016.39(Suppl 1). Performed By: #### 5 7021-8 #### [facility] CLIA [id number] [address] [place] [address] [place] Potassium [Moles/Vol] 3.8 mmol/L Normal 3.7-5.1 [facility] Comment on above: Order Comment: Sabina colin Type: BLOOD SPECIMEN Ordering Facility: [facility] Address: [address] [place], [place] [address] Performed By: #### 5 7021-8 #### [facility] CLIA [id number] [address] [place] [address] [place] Sodium [Moles/Vol] 139 mmol/L Normal 136-144 [facility] Comment on above: Order Comment: Speci men Type: BLOOD SPECIMEN Ordering Facility: [facility] Address: [address] [place] [address] Performed By: #### 5 7021-8 #### [facility] CLIA [id number] [address] [place] [address] [place] Urea nitrogen [Mass/Vol] 15 mg/dL Normal 9-24 [facility] Comment on above: Order Comment: Speci men Type: BLOOD SPECIMEN Ordering Facility: [facility] Address: [address] [place] [address] Performed By: #### 5 7021-8 #### [facility] CLIA [id number] [address] [place] [address] [place] CBC W Auto Differential pane l (Bld)on 01-27-2022 Basophils (Bld) [#/Vol] 0.03 10*3/uL Normal <0.11 [facility] Comment on above: Order Comment: Speci men Type: BLOOD SPECIMENOrdering Facility: [facility] Address: [address] [place] [address] Performed By: #### 5 7021-8 ####[facility] [id number] [place] [address] [place] Basophils/100 WBC (Bld) 0.4 % Normal [facility] Comment on above: Order Comment: Speci men Type: BLOOD SPECIMENOrdering Facility: [facility] Address: [address] [place], [place] [address] Performed By: #### 5 7021-8 ####[facility] [id number] [place] [address] [place] Differential cell count method Nom (Bld) Auto Normal [facility] Comment on above: Order Comment: Speci men Type: BLOOD SPECIMENOrdering Facility: [facility] Address: [address] [place], [place] [address] Performed By: #### 5 7021-8 ####[facility] [id number] [place] [address] [place] Eosinophils (Bld) [#/Vol] 0.03 10*3/uL Normal <0.46 [facility] Comment on above: Order Comment: Speci men Type: BLOOD SPECIMENOrdering Facility: [facility] Address: [address] [place], [place] [address] Performed By: #### 5 7021-8 ####[facility] [id number] [place] [address] [place] Eosinophils/100 WBC (Bld) 0.4 % Normal [facility] Comment on above: Order Comment: Speci men Type: BLOOD SPECIMENOrdering Facility: [facility] Address: [address] [place], [place] [address] Performed By: #### 5 7021-8 ####[facility] [id number] [place] [address] [place] Erythrocyte distribution width (RBC) [Ratio] 12.8 % Normal 11.5-15.0 [facility] Comment on above: Order Comment: Speci men Type: BLOOD SPECIMENOrdering Facility: [facility] Address: [address] [place], [place] [address] Performed By: #### 5 7021-8 ####[facility] [id number] [place] [address] [place] Hematocrit (Bld) [Volume fraction] 34.1 % Low 39.0-51.0 [facility] Comment on above: Order Comment: Speci men Type: BLOOD SPECIMENOrdering Facility: [facility] Address: [address] [place], [place] [address] Performed By: #### 5 7021-8 ####[facility] [id number] [place] [address] [place] Hemoglobin (Bld) [Mass/Vol] 10.9 g/dL Low 13.0-17.0 [facility] Comment on above: Order Comment: Speci men Type: BLOOD SPECIMENOrdering Facility: [facility] Address: [address] [place], [place] [address] Performed By: #### 5 7021-8 ####[facility] [id number] [place] [address] [place] IMMATURE GRAN % 0.4 % Normal [facility] Comment on above: Order Comment: Speci men Type: BLOOD SPECIMENOrdering Facility: [facility] Address: [address] [place] [address] Performed By: #### 5 7021-8 ####[facility] [id number] [place] [address] [place] [facility] IMMATURE GRAN ABS 0.03 k/uL Normal <0.10 [facility] Comment on above: Order Comment: Speci men Type: BLOOD SPECIMENOrdering Facility: [facility] Address: [address] [place], [place] [address] Performed By: #### 5 7021-8 ####[facility] [id number] [place] [address] [place] Lymphocytes (Bld) [#/Vol] 1.38 10*3/uL Normal 1.00-4.00 [facility] Comment on above: Order Comment: Speci men Type: BLOOD SPECIMENOrdering Facility: [facility] Address: [address] [place], [place] [address] Performed By: #### 5 7021-8 ####[facility] [id number] [address] [place] Lymphocytes/100 WBC (Bld) 17.1 % Normal [facility] Comment on above: Order Comment: Speci men Type: BLOOD SPECIMENOrdering Facility: [facility] Address: [address] [place], [place] [address] Performed By: #### 5 7021-8 ####[facility] [id number] [place] [address] [place] MCH (RBC) [Entitic mass] 27.8 pg Normal 26.0-34.0 [facility] Comment on above: Order Comment: Speci men Type: BLOOD SPECIMENOrdering Facility: [facility] Address: [address] [place], [place] [address] Performed By: #### 5 7021-8 ####[facility] [id number] [place] [address] [place] MCHC (RBC) [Mass/Vol] 32.0 g/dL Normal 30.5-36.0 [facility] Comment on above: Order Comment: Speci men Type: BLOOD SPECIMENOrdering Facility: [facility] Address: [address] [place], [place] [address] Performed By: #### 5 7021-8 ####[facility] [id number] [place] [address] [place] MCV (RBC) [Entitic vol] 87.0 fL Normal 80.0-100.0 [facility] Comment on above: Order Comment: Speci men Type: BLOOD SPECIMENOrdering Facility: [facility] Address: [address] [place], [place] [address] Performed By: #### 5 7021-8 ####[facility] [id number] [place] [address] [place] Monocytes (Bld) [#/Vol] 0.72 10*3/uL Normal <0.87 [facility] Comment on above: Order Comment: Speci men Type: BLOOD SPECIMENOrdering Facility: [facility] Address: [address] [place], [place] [address] Performed By: #### 5 7021-8 ####[facility] [id number] [address] [place] Monocytes/100 WBC (Bld) 8.9 % Normal [facility] Comment on above: Order Comment: Speci men Type: BLOOD SPECIMENOrdering Facility: [facility] Address: [address] [place], [place] [address] Performed By: #### 5 7021-8 ####[facility] [id number] [place] [address] [place] Neutrophils (Bld) [#/Vol] 5.87 10*3/uL Normal 1.45-7.50 [facility] Comment on above: Order Comment: Speci men Type: BLOOD SPECIMENOrdering Facility: [facility] Address: [address] [place], [place] [address] Performed By: #### 5 7021-8 ####[facility] [id number] [address] [place] Neutrophils/100 WBC (Bld) 72.8 % Normal [facility] Comment on above: Order Comment: Speci men Type: BLOOD SPECIMENOrdering Facility: [facility] Address: [address] [place], [place] [address] Performed By: #### 5 7021-8 ####[facility] [id number] [place] [address] [place] Nucleated RBC (Bld) [#/Vol] 10*3/uL Normal <0.01 [facility] Comment on above: Order Comment: Speci men Type: BLOOD SPECIMENOrdering Facility: [facility] Address: [address] [place], [place] [address] Performed By: #### 5 7021-8 ####[facility] [id number] [place] [address] [place] Nucleated RBC/100 WBC (Bld) [Ratio] 0.0 /100 WBC Normal [facility] Comment on above: Order Comment: Speci men Type: BLOOD SPECIMENOrdering Facility: [facility] Address: [address] [place], [place] [address] Performed By: #### 5 7021-8 ####[facility] [id number] [place] [address] [place] Platelet mean volume (Bld) [Entitic vol] 9.7 fL Normal 9.0-12.7 [facility] Comment on above: Order Comment: Speci men Type: BLOOD SPECIMENOrdering Facility: [facility] Address: [address] [place], [place] [address] Performed By: #### 5 7021-8 ####[facility] [id number] [place] [address] [place] Platelets (Bld) [#/Vol] 251 10*3/uL Normal 150-400 [facility] Comment on above: Order Comment: Speci men Type: BLOOD SPECIMENOrdering Facility: [facility] Address: [address] [place], [place] [address] Performed By: #### 5 7021-8 ####[facility] [id number] [place] [address] [place] RBC (Bld) [#/Vol] 3.92 10*6/uL Low 4.20-6.00 [facility] Comment on above: Order Comment: Speci men Type: BLOOD SPECIMENOrdering Facility: [facility] Address: [address] [place] [address] Performed By: #### 5 7021-8 ####[facility] [id number] [place] [address] [place] WBC (Bld) [#/Vol] 8.06 10*3/uL Normal 3.70-11.00 [facility] Comment on above: Order Comment: Speci men Type: BLOOD SPECIMENOrdering Facility: [facility] Address: [address] [place], [place] [address] Performed By: #### 5 7021-8 ####[facility] [id number] [address] ANES POSTPROC EVALon 022 ANES POSTPROC EVAL HNO ID: [id number] Author: Kaelyn Zamora MD Service: ? Author Type: Anesthesiologist Type: Anesthesia Postprocedure Evaluation Filed: 01/26/2022 10:17 AM Note Text: POST ANESTHESIA EVALUATION NOTE : 1960 Procedure Summary Date: 01/25/22 Room / Location: [address] Anesthesia Start: 1404 Anesthesia Stop: 1802 Procedure: ROBOTIC LAPAROSCOPIC NEPHRECTOMY PARTIAL (Right Kidney) Diagnosis: Malignant neoplasm of right kidney (HCC) Surgeons: Phil Kan MD Responsible Provider: Kaelyn Zamora MD Anesthesia Type: general ASA Status: 3 Anesthesia Type: general Airway Type: ETT Last Vitals Vitals Value Taken Time BP 136/72 01/26/22 0903 Temp 36.8 ?C (98.2 ?F) 01/26/22 0903 Pulse 65 01/26/22 0903 Resp 18 01/26/22 0903 SpO2 95 % 01/26/22 0903 [facility] AN POST OP NOTE Anesthesia Observations No Documentation SIGNATURE: Kaelyn Zamora MD PATIENT NAME: Philippe Ray DATE: January 26, 2022 TIME: 10:17 AM CSN: [id number] Normal [facility] Basic metabolic 2000 panelon 01-26-2022 Anion gap [Moles/Vol] 10 mmol/L Normal 9-18 [facility] Comment on above: Order Comment: Speci men Type: BLOOD SPECIMEN [facility] Address: [address] [place], [place] [address] Performed By: #### 5 7021-8 #### [facility] CLIA [id number] [address] [place] [address] [place] Calcium [Mass/Vol] 8.9 mg/dL Normal 8.5-10.2 [facility] Comment on above: Order Comment: Speci men Type: BLOOD SPECIMEN [facility] Address: [address] [place] [address] Performed By: #### 5 7021-8 #### [facility] CLIA [id number] [address] [place] [address] [place] Chloride [Moles/Vol] 100 mmol/L Normal 97-105 [facility] Comment on above: Order Comment: Speci men Type: BLOOD SPECIMEN [facility] Address: [address] [place] [address] Performed By: #### 5 7021-8 #### [facility] CLIA [id number] [address] [place] [address] [place] CO2 [Moles/Vol] 27 mmol/L Normal 22-30 [facility] Comment on above: Order Comment: Speci men Type: BLOOD SPECIMEN [facility] Address: [address] [place], [place] [address] Performed By: #### 5 7021-8 #### [facility] CLIA [id number] [address] [place] [address] [place] Creatinine [Mass/Vol] 0.96 mg/dL Normal 0.73-1.22 [facility] Comment on above: Order Comment: Speci men Type: BLOOD SPECIMEN [facility] Address: [address] [place], [place] [address] Performed By: #### 5 7021-8 #### [facility] CLIA [id number] [address] [place] [address] [place] ESTIMATED GLOMERULAR FILTRATION RATE 90 mL/min/1.73m??? Normal >=60 [facility] Comment on above: Order Comment: Speci men Type: BLOOD SPECIMEN [facility] Address: [address] [place], [place] [address] Result Comment: Bronwyn mated Glomerular Filtration Rate (eGFR) is calculated using the 2020 CKD-EPI creatinine equation. This equation utilizes serum creatinine, sex, and age as parameters. The creatinine assay has traceable calibration to isotope dilution-mass spectrometry. Refer to KDIGO guidelines for clinical interpretation. In patients with unstable renal function, e.g. those with acute kidney injury, the eGFR may not accurately reflect actual GFR. Performed By: #### 5 7021-8 #### [facility] CLIA [id number] [address] [place] [address] [place] Glucose [Mass/Vol] 96 mg/dL Normal 74-99 [facility] Comment on above: Order Comment: Sabina colin Type: BLOOD SPECIMEN [facility] Address: [address] [place], [place] [address] Result Comment: The [place] [employer] (ADA) provides guidance for cutoff values for fasting glucose and random glucose. The ADA defines fasting as no caloric intake for at least 8 hours. Fasting plasma glucose results between 100 to 125 mg/dL indicate increased risk for diabetes (prediabetes). Fasting plasma glucose results greater than or equal to 126 mg/dL meet the criteria for diagnosis of diabetes. In the absence of unequivocal hyperglycemia, results should be confirmed by repeat testing. In a patient with classic symptoms of hyperglycemia or hyperglycemic crisis, random plasma glucose results greater than or equal to 200 mg/dL meet the criteria for diagnosis of diabetes. Reference: Standards of Medical Care in Diabetes 2016, [place] [employer]. Diabetes Care. 2016.39(Suppl 1). Performed By: #### 5 7021-8 #### [facility] CLIA [id number] [address] [place] [address] [place] Potassium [Moles/Vol] 3.8 mmol/L Normal 3.7-5.1 [facility] Comment on above: Order Comment: Sabina colin Type: BLOOD SPECIMEN [facility] Address: [address] [place], [place] [address] Performed By: #### 5 7021-8 #### [facility] CLIA [id number] [address] [place] [address] [place] Sodium [Moles/Vol] 137 mmol/L Normal 136-144 [facility] Comment on above: Order Comment: Speci men Type: BLOOD SPECIMEN [facility] Address: [address] [place] [address] Performed By: #### 5 7021-8 #### [facility] CLIA [id number] [address] [place] [address] [place] Urea nitrogen [Mass/Vol] 15 mg/dL Normal 9-24 [facility] Comment on above: Order Comment: Speci men Type: BLOOD SPECIMEN [facility] Address: [address] [place], [place] [address] Performed By: #### 5 7021-8 #### [facility] CLIA [id number] [address] [place] [address] [place] CBC W Auto Differential pane l (Bld)on 01-26-2022 Basophils (Bld) [#/Vol] 10*3/uL Normal <0.11 [facility] Comment on above: Order Comment: Speci men Type: BLOOD SPECIMENOrdering Facility: [facility] Address: [address] [place] [address] Performed By: #### 5 7021-8 ####[facility] [id number] [place] [address] [place] Basophils/100 WBC (Bld) 0.2 % [facility] Comment on above: Order Comment: Speci men Type: BLOOD SPECIMENOrdering Facility: [facility] Address: [address] [place] [address] Performed By: #### 5 7021-8 ####[facility] [id number] [place] [address] [place] Differential cell count method Nom (Bld) Auto Normal [facility] Comment on above: Order Comment: Speci men Type: BLOOD SPECIMENOrdering Facility: [facility] Address: [address] [place], [place] [address] Performed By: #### 5 7021-8 ####[facility] [id number] [place] [address] [place] Eosinophils (Bld) [#/Vol] 10*3/uL Normal <0.46 [facility] Comment on above: Order Comment: Speci men Type: BLOOD SPECIMENOrdering Facility: [facility] Address: [address] [place] [address] Performed By: #### 5 7021-8 ####[facility] [id number] [address] [place] Eosinophils/100 WBC (Bld) 0.1 % Normal [facility] Comment on above: Order Comment: Speci men Type: BLOOD SPECIMENOrdering Facility: [facility] Address: [address] [place], [place] [address] Performed By: #### 5 7021-8 ####[facility] [id number] [place] [address] [place] Erythrocyte distribution width (RBC) [Ratio] 12.4 % Normal 11.5-15.0 [facility] Comment on above: Order Comment: Speci men Type: BLOOD SPECIMENOrdering Facility: [facility] Address: [address] [place], [place] [address] Performed By: #### 5 7021-8 ####[facility] [id number] [place] [address] [place] Hematocrit (Bld) [Volume fraction] 34.8 % Low 39.0-51.0 [facility] Comment on above: Order Comment: Speci men Type: BLOOD SPECIMENOrdering Facility: [facility] Address: [address] [place], [place] [address] Performed By: #### 5 7021-8 ####[facility] [id number] [place] [address] [place] Hemoglobin (Bld) [Mass/Vol] 11.7 g/dL Low 13.0-17.0 [facility] Comment on above: Order Comment: Speci men Type: BLOOD SPECIMENOrdering Facility: [facility] Address: [address] [place] [address] Performed By: #### 5 7021-8 ####[facility] [id number] [address] [place] IMMATURE GRAN % 0.6 % Normal [facility] Comment on above: Order Comment: Speci men Type: BLOOD SPECIMENOrdering Facility: [facility] Address: [address] [place] [address] Performed By: #### 5 7021-8 ####[facility] [id number] [place] [address] [place] IMMATURE GRAN ABS 0.07 k/uL Normal <0.10 [facility] Comment on above: Order Comment: Speci men Type: BLOOD SPECIMENOrdering Facility: [facility] Address: [address] [place], [place] [address] Performed By: #### 5 7021-8 ####[facility] [id number] [place] [address] [place] Lymphocytes (Bld) [#/Vol] 1.37 10*3/uL Normal 1.00-4.00 [facility] Comment on above: Order Comment: Speci men Type: BLOOD SPECIMENOrdering Facility: [facility] Address: [address] [place], [place] [address] Performed By: #### 5 7021-8 ####[facility] [id number] [address] [place] Lymphocytes/100 WBC (Bld) 10.9 % Normal [facility] Comment on above: Order Comment: Speci men Type: BLOOD SPECIMENOrdering Facility: [facility] Address: [address] [place] [address] Performed By: #### 5 7021-8 ####[facility] [id number] [address] [place] MCH (RBC) [Entitic mass] 28.8 pg Normal 26.0-34.0 [facility] Comment on above: Order Comment: Speci men Type: BLOOD SPECIMENOrdering Facility: [facility] Address: [address] [place] [address] Performed By: #### 5 7021-8 ####[facility] [id number] [address] [place] MCHC (RBC) [Mass/Vol] 33.6 g/dL Normal 30.5-36.0 [facility] Comment on above: Order Comment: Speci men Type: BLOOD SPECIMENOrdering Facility: [facility] Address: [address] [place], [place] [address] Performed By: #### 5 7021-8 ####[facility] [id number] [address] [place] MCV (RBC) [Entitic vol] 85.7 fL Normal 80.0-100.0 [facility] Comment on above: Order Comment: Speci men Type: BLOOD SPECIMENOrdering Facility: [facility] Address: [address] [place], [place] [address] Performed By: #### 5 7021-8 ####[facility] [id number] [place] [address] [place] Monocytes (Bld) [#/Vol] 0.98 10*3/uL High <0.87 [facility] Comment on above: Order Comment: Speci men Type: BLOOD SPECIMENOrdering Facility: [facility] Address: [address] Performed By: #### 5 7021-8 ####[facility] [id number] [place] [address] [place] Monocytes/100 WBC (Bld) 7.8 % Normal [facility] Comment on above: Order Comment: Speci men Type: BLOOD SPECIMENOrdering Facility: [facility] Address: [address] [place], [place] [address] Performed By: #### 5 7021-8 ####[facility] [id number] [place] [address] [place] Neutrophils (Bld) [#/Vol] 10.12 10*3/uL High 1.45-7.50 [facility] Comment on above: Order Comment: Speci men Type: BLOOD SPECIMENOrdering Facility: [facility] Address: [address] [place], [place] [address] Performed By: #### 5 7021-8 ####[facility] [id number] [address] [place] Neutrophils/100 WBC (Bld) 80.4 % Normal [facility] Comment on above: Order Comment: Speci men Type: BLOOD SPECIMENOrdering Facility: [facility] Address: [address] [place] [address] Performed By: #### 5 7021-8 ####[facility] [id number] [place] [address] [place] Nucleated RBC (Bld) [#/Vol] 10*3/uL Normal <0.01 [facility] Comment on above: Order Comment: Speci men Type: BLOOD SPECIMENOrdering Facility: [facility] Address: [address] [place] [address] Performed By: #### 5 7021-8 ####[facility] [id number] [place] [address] [place] Nucleated RBC/100 WBC (Bld) [Ratio] 0.0 /100 WBC Normal [facility] Comment on above: Order Comment: Speci men Type: BLOOD SPECIMENOrdering Facility: [facility] Address: [address] [place], [place] [address] Performed By: #### 5 7021-8 ####[facility] [id number] [place] [address] [place] Platelet mean volume (Bld) [Entitic vol] 10.0 fL Normal 9.0-12.7 [facility] Comment on above: Order Comment: Speci men Type: BLOOD SPECIMENOrdering Facility: [facility] Address: [address] [place], [place] [address] Performed By: #### 5 7021-8 ####[facility] [id number] [place] [address] [place] Platelets (Bld) [#/Vol] 305 10*3/uL Normal 150-400 [facility] Comment on above: Order Comment: Speci men Type: BLOOD SPECIMENOrdering Facility: [facility] Address: [address] [place], [place] [address] Performed By: #### 5 7021-8 ####[facility] [id number] [place] [address] [place] RBC (Bld) [#/Vol] 4.06 10*6/uL Low 4.20-6.00 [facility] Comment on above: Order Comment: Speci men Type: BLOOD SPECIMENOrdering Facility: [facility] Address: [address] [place], [place] [address] Performed By: #### 5 7021-8 ####[facility] [id number] [address] [address] [id number] [address] [place] WBC (Bld) [#/Vol] 12.57 10*3/uL High 3.70-11.00 [facility] Comment on above: Order Comment: Speci men Type: BLOOD SPECIMENOrdering Facility: [facility] Address: [address] [place] [address] Performed By: #### 5 7021-8 ####[facility] [id number] [address] [place] [id number] [facility] [place] CNDSon 01-26-2022 CNDS HNO ID: [id number] Author: Phil Kan MD Service: Urology Author Type: Physician Type: Discharge Summary Filed: 02/07/2022 11:39 AM Note Text: DISCHARGE SUMMARY PATIENT NAME: Philippe Ray ADMISSION DATE: 01/25/2022 DISCHARGE DATE: 01/27/2022 ATTENDING PHYSICIAN: Phil Kan MD Code Status: Not on file Highest Readmission Risk Score: 10 The 30 day readmissions risk score is derived from an internally validated risk model which evaluates patient level characteristics, utilization history, medication orders and lab results up until the day of discharge. Patients with a score of 40 or above are considered highest risk for readmission. Specific patient level drivers will be listed at the bottom of the summary. CONSULTING TEAMS DURING HOSPITALIZATION: None Treatment Team: Attending Provider: Phil Kan MD REASON FOR HOSPITALIZATION: This is a 61 year old male with a history of a R renal mass who elected to undergo surgical intervention. DIAGNOSIS: Principal Problem: Right renal mass POA: Yes Resolved Problems: * No resolved hospital problems. * OPERATIONS DURING HOSPITALIZATION: Right robotic partial nephrectomy PROCEDURES DURING HOSPITALIZATION: Biopsy: pathology pending and Intubation HOSPITAL COURSE: The patient underwent the above procedure(s). Please see separately dictated operative report for full details of the procedure. Pt tolerated the procedure well and post-operatively was transferred to PACU and ultimately to a regular nursing unit. Pain was initially controlled with intravenous analgesia and pt's diet was restricted until signs of returning bowel function. On post-operative day 2 pt was afebrile for 24 hours, ambulating without difficulty, tolerating a regular diet, passing flatus, and pain was adequately controlled with PO medication. Johnson was discontinue don POD #1 and patient was able to void without issue. JANICE drain was remove on discharge. Pt was discharged home with instructions to return for follow up in clinic. Transitions of Care Critical Issues: SPECIALIST FOLLOW-UP: Urology LABS AND PROCEDURES PENDING AT DISCHARGE: Pathology Results (pending) PATIENT CONDITION AT DISCHARGE: Stable DISCHARGE DISPOSITION: Home INFORMATION PROVIDED TO PATIENT: Discharge instructions provided to the patient. WOUND/SURGICAL SITE CARE: Keep your dressing clean and dry DIET: Low soft-fiber diet: No fresh fruits, whole grains, foods difficult to digest, or vegetables (unless they are well-cooked) ACTIVITY: Lifting is restricted to: <10 pounds No driving while on narcotics ALLERGIES No Known Allergies DISCHARGE MEDICATION: Current Discharge Medication List START taking these medications acetaminophen (TYLENOL) 650 mg Take 650 mg by mouth every 6 hours as needed for pain. Qty: 28 tablet Refills: 0 oxyCODONE IR (ROXICODONE) 5 mg Take 5 mg by mouth every 8 hours as needed for pain. Qty: 9 tablet Refills: 0 Associated Diagnoses:Right renal mass docusate sodium (COLACE) 100 mg Take 100 mg by mouth twice daily. Qty: 60 capsule Refills: 0 CONTINUE these medications which have NOT CHANGED aspirin 81 mg cap Take by mouth. amLODIPine (NORVASC) 10 mg Take 10 mg by mouth once daily. hydroCHLOROthiazide (HYDRODIURIL, ESIDRIX) 12.5 mg Take 12.5 mg by mouth once daily. omeprazole (PriLOSEC) 20 mg Take 20 mg by mouth once daily. FUTURE APPOINTMENTS: Follow Up with PCP: No primary care provider on file. The patient's risk for 30-day readmission is determined using the following contributing factors: Pt variables contributing to increased readmission risk: 19 Active Medication Orders 14 Most Recent BUN Result 9 First Resulted Calcium During Admission 1 Insurance - Private Coverage 1 Active Anticoagulant SIGNATURE: Мария Diaz APRN.TRAINING ADMINISTRATOR DATE: January 26, 2022 TIME: 7:23 AM Phil Kan MD, MS [facility] Normal [facility] ANES PRE-OPon 01-25-2022 ANES PRE-OP HNO ID: [id number] Author: Kaelyn Zamora MD Service: ? Author Type: Anesthesiologist Type: Anesthesia Preprocedure Evaluation Filed: 01/25/2022 2:10 PM Note Text: ANESTHESIOLOGY DAY OF SURGERY NOTE : 1960 Procedure Information Anesthesia Start Date/Time: 01/25/22 1404 Procedure: ROBOTIC LAPAROSCOPIC NEPHRECTOMY PARTIAL (Right Kidney) [facility]: Phil Kan MD Estimated body mass index is 27.11 kg/m? as calculated from the following: Height as of this encounter: 182.9 cm (6'). Weight as of this encounter: 90.7 kg (199 lb 14.4 oz). Most recent hematocrit and potassium results: Hematocrit 41.5 01/23/2022 Potassium 3.6 01/23/2022 Relevant Problems CARDIO (+) Atrial fibrillation (HCC) (+) HTN (hypertension) GI (+) GERD (gastroesophageal reflux disease) I - PHYSICAL EVALUATION AIRWAY Patient intubated: No. Tracheostomy tube not present Mallampati: I. TM distance: >3 FB. Neck ROM: full ROM without neurological symptoms. Mouth opening: adequate. Short neck: no. Thick neck: no Additional exam findings: no II - ANESTHESIA PLAN ASA Score: 3 Anesthetic Plan: general Airway type: ETT The patient is not a current smoker. NPO Status: adequate Beta Cayetano Administration of chronic beta cayetano medication not planned. Reasons for not administering beta cayetano perioperatively: other Monitoring plan: standard ASA. Postoperative analgesic plan: parenteral or oral opioids. Patient / Surrogate agrees to blood products: blood products not planned Potential Anesthesia issues that may suggest increased risk of complications or contraindication to planned procedure: none. Vitals Value Taken Time BP 145/87 01/25/22 1038 Pulse 66 01/25/22 1038 Resp 16 01/25/22 1038 Temp 36.7 ?C (98.1 ?F) 01/25/22 1038 SpO2 98 % 01/25/22 1038 Facility-Administered Medications as of 01/25/2022 Medication Dose Route Frequency - [MAR Hold due to Transfer] lidocaine (PF) 10 mg/mL (1 %) 1-2 mg injection (XYLOCAINE) 0.1-0.2 mL INTRADERMAL PRN Or - [MAR Hold due to Transfer] lidocaine 1% 0.25 mL subcutaneous j-tip syringe (XYLOCAINE) 0.25 mL SUBCUTANEOUS PRN - [MAR Hold due to Transfer] lactated ringers iv infusion 5-30 mL/hr INTRAVENOUS CONTINUOUS - [MAR Hold due to Transfer] ceFAZolin iv piggyback 2 g in D5W (iso-osmotic) 100 mL (ANCEF) 2 g INTRAVENOUS Pre-Op Once Outpatient Medications as of 01/25/2022 Medication Sig - amLODIPine (NORVASC) 10 mg tablet Take 10 mg by mouth once daily. - hydroCHLOROthiazide (HYDRODIURIL, ESIDRIX) 12.5 mg tablet Take 12.5 mg by mouth once daily. - omeprazole (PRILOSEC) 20 mg capsule Take 20 mg by mouth once daily. I have interviewed and examined the patient. I have reviewed the medical record and/or the pre-anesthesia evaluation, pertinent labs, and test results. This contains updated information obtained within 48 hours of Surgery/Procedure. SIGNATURE: Kaelyn Zamora MD PATIENT NAME: Philippe Ray DATE: January 25, 2022 TIME: 2:09 PM CSN: [id number] Normal [facility] BRIEF OP NOTon 01-25-2022 BRIEF OP NOT HNO ID: [id number] Author: Min Vizcaino MD Service: Urology Author Type: Physician Type: Brief Op Note Filed: 01/25/2022 5:30 PM Note Text: BRIEF OPERATIVE / PROCEDURE NOTE LOG ID: [id number] Surgery/Procedure Date: 01/25/2022 Incision/Procedure Start Time: 2:42 PM Incision Close/Procedure End Time: Surgeon(s)/Proceduralis t(s) and [place] Pumper(s): Surgeon(s) and Role: * Phil Kan MD - Primary * Eddie Hui MD - Resident - Assisting * Min Vizcaino MD - Fellow No Additional Staff Procedure(s): Right robotic partial nephrectomy Anesthesia: General Findings: 30 m 32 s warm ischemia time; central mass resected with grossly negative margins; 1 artery and 1 vein Estimated Blood Loss: 100 mls Specimens: ID Type Source Tests Collected by Time Destination A : right renal neoplasm Tissue KIDNEY PARTIAL NEPHRECTOMY RIGHT SURGICAL PATHOLOGY Phil Kan MD 01/25/2022 4:25 PM B : Lateral Tissue KIDNEY BIOPSY RIGHT SURGICAL PATHOLOGY Phil Kan MD 01/25/2022 4:28 PM C : medial Tissue KIDNEY BIOPSY RIGHT SURGICAL PATHOLOGY Phil Kan MD 01/25/2022 4:32 PM D : inferior Tissue KIDNEY BIOPSY RIGHT SURGICAL PATHOLOGY Phil Kan MD 01/25/2022 4:33 PM Complications: None Drains: RLQ Wisam drain, Johnson Pre-Op/Pre-Procedure Diagnosis: Right renal mass Post-Op/Post-Procedure Diagnosis: Same as preop SIGNATURE: Min Vizcaino MD PATIENT NAME: Philippe Ray DATE: January 25, 2022 TIME: 5:29 PM Normal [facility] Basic metabolic 2000 panelon 01-25-2022 Anion gap [Moles/Vol] 10 mmol/L Normal 9-18 [facility] Comment on above: Order Comment: Speci men Type: BLOOD SPECIMENOrdering Facility: [facility] Address: [address] [place] [address] Performed By: #### 2 4321-2 ####[facility] [id number] [place] [address] [place] Calcium [Mass/Vol] 9.0 mg/dL Normal 8.5-10.2 [facility] Comment on above: Order Comment: Speci men Type: BLOOD SPECIMENOrdering Facility: [facility] Address: [address] [place] [address] Performed By: #### 2 4321-2 ####[facility] [id number] [place] [address] [place] Chloride [Moles/Vol] 103 mmol/L Normal 97-105 [facility] Comment on above: Order Comment: Speci men Type: BLOOD SPECIMENOrdering Facility: [facility] Address: [address] [place], [place] [address] Performed By: #### 2 4321-2 ####[facility] [id number] [place] [address] [place] CO2 [Moles/Vol] 26 mmol/L Normal 22-30 [facility] Comment on above: Order Comment: Speci men Type: BLOOD SPECIMENOrdering Facility: [facility] Address: [address] [address] Performed By: #### 2 4321-2 ####[facility] [id number] [address] STATES OF [facility] Creatinine [Mass/Vol] 0.85 mg/dL Normal 0.73-1.22 [facility] Comment on above: Order Comment: Speci men Type: BLOOD SPECIMENOrdering Facility: [facility] Address: [address] [place] [address] Performed By: #### 2 4321-2 ####[facility] [id number] [address] OF [facility] ESTIMATED GLOMERULAR FILTRATION RATE 99 mL/min/1.73m??? Normal >=60 [facility] Comment on above: Order Comment: Speci men Type: BLOOD SPECIMENOrdering Facility: [facility] Address: [address] [place] [address] Result Comment: Bronwyn mated Glomerular Filtration Rate (eGFR) is calculated using the 2020 CKD-EPI creatinine equation. This equation utilizes serum creatinine, sex, and age as parameters. The creatinine assay has traceable calibration to isotope dilution-mass spectrometry. Refer to KDIGO guidelines for clinical interpretation. In patients with unstable renal function, e.g. those with acute kidney injury, the eGFR may not accurately reflect actual GFR. Performed By: #### 2 4321-2 ####[facility] [id number] [place] [address] [place] Glucose [Mass/Vol] 138 mg/dL High 74-99 [facility] Comment on above: Order Comment: Speci men Type: BLOOD SPECIMENOrdering Facility: [facility] Address: [address] [place] [address] Result Comment: The [place] Diabetes [employer] (ADA) provides guidance for cutoff values for fasting glucose and random glucose. The ADA defines fasting as no caloric intake for at least 8 hours. Fasting plasma glucose results between 100 to 125 mg/dL indicate increased risk for diabetes (prediabetes). Fasting plasma glucose results greater than or equal to 126 mg/dL meet the criteria for diagnosis of diabetes. In the absence of unequivocal hyperglycemia, results should be confirmed by repeat testing. In a patient with classic symptoms of hyperglycemia or hyperglycemic crisis, random plasma glucose results greater than or equal to 200 mg/dL meet the criteria for diagnosis of diabetes. Reference: Standards of Medical Care in Diabetes 2016, [place] [employer]. Diabetes Care. 2016.39(Suppl 1). Performed By: #### 2 4321-2 ####[facility] [id number] [place] [address] [place] Potassium [Moles/Vol] 4.0 mmol/L Normal 3.7-5.1 [facility] Comment on above: Order Comment: Briani men Type: BLOOD SPECIMENOrdering Facility: [facility] Address: [address] [place] [address] Performed By: #### 2 1-2 ####[facility] [id number] [place] [address] [place] Sodium [Moles/Vol] 139 mmol/L Normal 136-144 [facility] Comment on above: Order Comment: Sabina colin Type: BLOOD SPECIMENOrdering Facility: [facility] Address: [address] [place] [address] Performed By: #### 2 1-2 ####[facility] [id number] [place] [address] [place] Urea nitrogen [Mass/Vol] 14 mg/dL Normal 9-24 [facility] Comment on above: Order Comment: Speci men Type: BLOOD SPECIMENOrdering Facility: [facility] Address: [address] [place] [address] Performed By: #### 2 4321-2 ####[facility] [id number] [place] [address] [place] CBC W Auto Differential pane l (Bld)on 01-25-2022 Basophils (Bld) [#/Vol] 0.04 10*3/uL Normal <0.11 [facility] Comment on above: Order Comment: Speci men Type: BLOOD SPECIMEN [facility] Address: [address] [place], [place] [address] Performed By: #### 5 7021-8 #### [facility] CLIA [id number] [address] [place] [address] [place] Basophils/100 WBC (Bld) 0.3 % Normal [facility] Comment on above: Order Comment: Speci men Type: BLOOD SPECIMEN [facility] Address: [address] [place], [place] [address] Performed By: #### 5 7021-8 #### [facility] CLIA [id number] [address] [place] [address] [place] Differential cell count method Nom (Bld) Auto Normal [facility] Comment on above: Order Comment: Speci men Type: BLOOD SPECIMEN [facility] Address: [address] [place], [place] [address] Performed By: #### 5 7021-8 #### [facility] CLIA [id number] [address] [place] [address] [place] Eosinophils (Bld) [#/Vol] 10*3/uL Normal <0.46 [facility] Comment on above: Order Comment: Speci men Type: BLOOD SPECIMEN [facility] Address: [address] [place] [address] Performed By: #### 5 7021-8 #### [facility] CLIA [id number] [address] [place] [address] [place] Eosinophils/100 WBC (Bld) 0.2 % Normal [facility] Comment on above: Order Comment: Speci men Type: BLOOD SPECIMEN [facility] Address: [address] [place], [place] [address] Performed By: #### 5 7021-8 #### [facility] CLIA [id number] [address] [place] [address] [place] Erythrocyte distribution width (RBC) [Ratio] 12.3 % Normal 11.5-15.0 [facility] Comment on above: Order Comment: Speci men Type: BLOOD SPECIMEN [facility] Address: [address] [place] [address] Performed By: #### 5 7021-8 #### [facility] CLIA [id number] [address] [place] [address] [place] Hematocrit (Bld) [Volume fraction] 39.8 % Normal 39.0-51.0 [facility] Comment on above: Order Comment: Speci men Type: BLOOD SPECIMEN [facility] Address: [address] [place] [address] Performed By: #### 5 7021-8 #### [facility] CLIA [id number] [address] [place] [address] [place] Hemoglobin (Bld) [Mass/Vol] 13.2 g/dL Normal 13.0-17.0 [facility] Comment on above: Order Comment: Speci men Type: BLOOD SPECIMEN [facility] Address: [address] [place], [place] [address] Performed By: #### 5 7021-8 #### [facility] CLIA [id number] [address] [place] [address] [place] IMMATURE GRAN % 0.6 % Normal [facility] Comment on above: Order Comment: Speci men Type: BLOOD SPECIMEN [facility] Address: [address] [place], [place] [address] Performed By: #### 5 7021-8 #### [facility] CLIA [id number] [address] [place] [address] [place] IMMATURE GRAN ABS 0.07 k/uL Normal <0.10 [facility] Comment on above: Order Comment: Speci men Type: BLOOD SPECIMEN [facility] Address: [address] [place] [address] Performed By: #### 5 7021-8 #### [facility] CLIA [id number] [address] [place] [address] [place] Lymphocytes (Bld) [#/Vol] 0.97 10*3/uL Low 1.00-4.00 [facility] Comment on above: Order Comment: Speci men Type: BLOOD SPECIMEN [facility] Address: [address] [place] [address] Performed By: #### 5 7021-8 #### [facility] CLIA [id number] [address] [place] [address] [place] Lymphocytes/100 WBC (Bld) 8.0 % Normal [facility] Comment on above: Order Comment: Speci men Type: BLOOD SPECIMEN [facility] Address: [address] [place] [address] Performed By: #### 5 7021-8 #### [facility] CLIA [id number] [address] [place] [address] [place] MCH (RBC) [Entitic mass] 28.6 pg Normal 26.0-34.0 [facility] Comment on above: Order Comment: Speci men Type: BLOOD SPECIMEN [facility] Address: [address] [place] [address] Performed By: #### 5 7021-8 #### [facility] CLIA [id number] [address] [place] [address] [place] MCHC (RBC) [Mass/Vol] 33.2 g/dL Normal 30.5-36.0 [facility] Comment on above: Order Comment: Speci men Type: BLOOD SPECIMEN [facility] Address: [address] [place], [place] [address] Performed By: #### 5 7021-8 #### [facility] CLIA [id number] [address] [place] [address] [place] MCV (RBC) [Entitic vol] 86.3 fL Normal 80.0-100.0 [facility] Comment on above: Order Comment: Speci men Type: BLOOD SPECIMEN [facility] Address: [address] [place] [address] Performed By: #### 5 7021-8 #### [facility] CLIA [id number] [address] [place] [address] [place] Monocytes (Bld) [#/Vol] 0.12 10*3/uL Normal <0.87 [facility] Comment on above: Order Comment: Speci men Type: BLOOD SPECIMEN [facility] Address: [address] [place] [address] Performed By: #### 5 7021-8 #### [facility] CLIA [id number] [address] [place] [address] [place] Monocytes/100 WBC (Bld) 1.0 % Normal C [facility] Comment on above: Order Comment: Speci men Type: BLOOD SPECIMEN [facility] Address: [address] [place], [place] [address] Performed By: #### 5 7021-8 #### [facility] CLIA [id number] [address] [place] [address] [place] Neutrophils (Bld) [#/Vol] 10.88 10*3/uL High 1.45-7.50 [facility] Comment on above: Order Comment: Speci men Type: BLOOD SPECIMEN [facility] Address: [address] [place] [address] Performed By: #### 5 7021-8 #### [facility] CLIA [id number] [address] [place] [address] [place] Neutrophils/100 WBC (Bld) 89.9 % Normal [facility] Comment on above: Order Comment: Speci men Type: BLOOD SPECIMEN [facility] Address: [address] [place] [address] Performed By: #### 5 7021-8 #### [facility] CLIA [id number] [address] [place] [address] [place] Nucleated RBC (Bld) [#/Vol] 10*3/uL Normal <0.01 [facility] Comment on above: Order Comment: Speci men Type: BLOOD SPECIMEN [facility] Address: [address] [place] [address] Performed By: #### 5 7021-8 #### [facility] CLIA [id number] [address] [place] [address] [place] Nucleated RBC/100 WBC (Bld) [Ratio] 0.0 /100 WBC Normal [facility] Comment on above: Order Comment: Speci men Type: BLOOD SPECIMEN [facility] Address: [address] [place], [place] [address] Performed By: #### 5 7021-8 #### [facility] CLIA [id number] [address] [place] [address] [place] Platelet mean volume (Bld) [Entitic vol] 9.3 fL Normal 9.0-12.7 [facility] Comment on above: Order Comment: Speci men Type: BLOOD SPECIMEN [facility] Address: [address] [place], [place] [address] Performed By: #### 5 7021-8 #### [facility] CLIA [id number] [address] [place] [address] [place] Platelets (Bld) [#/Vol] 268 10*3/uL Normal 150-400 [facility] Comment on above: Order Comment: Speci men Type: BLOOD SPECIMEN [facility] Address: [address] [place] [address] Performed By: #### 5 7021-8 #### [facility] CLIA [id number] [address] [place] [address] [place] RBC (Bld) [#/Vol] 4.61 10*6/uL Normal 4.20-6.00 [facility] Comment on above: Order Comment: Speci men Type: BLOOD SPECIMEN [facility] Address: [address] [place] [address] Performed By: #### 5 7021-8 #### [facility] CLIA [id number] [address] [place] [address] [place] WBC (Bld) [#/Vol] 12.10 10*3/uL High 3.70-11.00 [facility] Comment on above: Order Comment: Speci men Type: BLOOD SPECIMEN [facility] Address: [address] [place] [address] Performed By: #### 5 7021-8 #### [facility] CLIA [id number] [address] [place] [address] [place] OPERATIVE NOon 01-25-2022 OPERATIVE NO HNO ID: [id number] Author: Phil Kan MD Service: Urology Author Type: Physician Type: Operative Report Filed: 02/07/2022 11:39 AM Note Text: OPERATIVE/PROCEDURE REPORT LOG ID: [id number] Surgery/Procedure Date: 01/25/2022 Incision/Procedure Start Time: 2:42 PM Incision Close/Procedure End Time: 5:33 PM Surgeon(s)/Proceduralis t(s) and [place] Pumper(s): Surgeon(s) and Role: * Phil Kan MD - Primary * Eddie Hui MD - Resident - Assisting * Min Vizcaino MD - Fellow Procedure(s): Procedure(s) and Anesthesia Type: * ROBOTIC LAPAROSCOPIC NEPHRECTOMY PARTIAL - General Anatomic Site: Kidney, Laterality: Right Approach: Robot-assisted Laparoscopic Anesthesia: General Operative Indications: This is a 61 year old male with a ~3cm enhancing right sided completely endophytic renal mass who after discussing the risks, benefits, and alternatives of the procedure has elected to pursue management of their condition via the aforementioned surgery. 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 A weight appropriate dose of prophylactic antibiotics was administered intravenously prior to the procedure and sequential compression devices were applied to the lower extremities and activated prior to induction of anesthesia. The patient was placed in the Jzhhm-nfja-ja Flank position. General anesthesia was induced. All pressure points were padded per protocol and the operative area was prepped and draped in the standard sterile fashion. An 8-mm transverse incision was made at the lateral border of the right rectus muscle just cranial to the 11th rib. The Veress needle was inserted and the peritoneum was insufflated. An 8mm was placed. The abdomen was examined and there were no injuries from trocar placement. Under direct vision, one robotic port was placed a hand's breadth cranial, a second a hand's breadth caudal, and a third a hand's breadth between the caudal port and the anterior superior iliac spine. A 12-mm dental hygiene administrative assistant port was placed 2cm cranial to the umbilicus. Finally, a 5mm port was placed immediately caudal to the xiphoid in the midline. The robot was then docked. The hepatic flexure and ascending colon were then reflected medially. After freeing the liver cephalad, a locking Allis grasper was used through the subxiphoid port as a liver retractor. We dissected directly onto the right renal vein and developed a plane caudal to it above the psoas muscle. The ureter was identified and retracted laterally. The fatty tissue around the hilum was dissected and the renal artery was identified posterior to the vein and dissected more medially. One vein, artery and ureter were noted. After the hilum was dissected out, the kidney was defatted. Intraoperative ultrasound was used to identify the borders of the mass. Of note, the mass was completely endophytic. A bulldog clamp was then applied to the renal artery. Under ischemia, the kidney mass was sharply dissected out. A cap of normal renal parenchyma was preserved over the tumor for later capsular closure. There was entry into the tumor pseudocapsule medially but no gross spillage of tumor. The tumor was brown and soft, and margins were sent from the inferior, medial and lateral border of the resection. The posterior and lateral component of the tumor was able to be successfully enucleated. We then performed the renorrhaphy with A 3-0 Monocryl V-loc suture of which the capsular ends were secured with Weck clips. The Bulldog clamp was taken off and residual open vessels were oversewn with the 3-0 V-loc and the capsular ends were similarly secured with Weck clips. Floseal was deposited in the partial nephrectomy bed and Surgicel was placed over it. The capsule was then closed over the defect with 3-0 V-loc suture in a horizontal mattress fashion with Weck clips. Hemostasis was excellent. The specimen was placed in an Endocatch bag placed through the lower dental hygiene administrative assistant port. Gerotas fascia was reapproximated over the kidney with hem-o-lock clips. The dental hygiene administrative assistant port was removed and the specimen was delivered. The dental hygiene administrative assistant port was then replaced. The fascia of the dental hygiene administrative assistant port was closed with 0-Vicryl in a figure of eight fashion using the Murali-Thai device. The abdomen was then desufflated and ports were removed. The wounds were then irrigated. The subcutaneous tissues of the extraction site were closed with a running 3-0 Vicryl suture. All skin incisions were then closed with running 4-0 vicryl in subcuticular fashi (more content not included)... Normal [facility] SURGICAL PATHOLOGYon 022 CASE REPORT Normal [facility] Comment on above: Order Comment: Speci men Type: TISSUE SPECIMENOrdering Facility: [facility] Address: [address] [place] [address] Result Comment: Surg [facility] Pathology Report Case: [id number] Authorizing Provider: Phil Kan MD Collected: 01/25/2022 04:25 PM Ordering Location: [place] [address] Received: 01/25/2022 04:56 PM Pathologist: Terry Sandhu MD Intraop: Mio Braga MD Specimens: A) - KIDNEY BIOPSY RIGHT, Lateral B) - KIDNEY BIOPSY RIGHT, medial C) - KIDNEY BIOPSY RIGHT, inferior D) - KIDNEY PARTIAL NEPHRECTOMY RIGHT, right renal neoplasm Performed By: #### S ####[facility] [id number] [address] [place] [address] [place] DIAGNOSIS COMMENT Normal [facility] [place] Comment on above: Order Comment: Speci men Type: TISSUE SPECIMENOrdering Facility: [facility] Address: [address] [place] [address] Result Comment: Low- grade oncocytic tumor is an emerging subtype of renal neoplasm that has overlapping features with oncocytoma and chromophobe renal cell carcinoma. Despite similarity to both of these entities, it has an immunohistochemical phenotype that appears different. Emerging molecular data suggests alterations of genes in the MTOR pathway. 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 It is difficult to assess the margin biopsies, which demonstrate occasional eosinophilic tubules, raising differential diagnosis between normal proximal tubules and oncocytic neoplasm. We favor the overall margin to be negative. Reference: Evette K, Phoebe SR, Grace Y, Itzelk P, Ca L, Guillermina AR, Agnieszka A, De Luna C, Adrián Rebollar P, Estevan Loera DM, Edwin S, Tito J, Nila O. 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 Histopathology. 2019 Jun;75(2):174-184. PMID: [id number]. Immunohistochemistry: To evaluate the differential diagnosis, immunohistochemistry was performed on separate unstained slides from paraffin block D3, showing diffuse positivity for keratin 7, a negative reaction for KIT, negative vimentin, normal SDHB, positive GATA3, and negative cathepsin K. This differs from the expected phenotype of both oncocytoma and chromophobe renal cell carcinoma, supporting the above diagnosis. The angiomyolipoma within the tumor is positive for cathepsin K, HMB-45, and Melan-A. The oncocytic tumor is also weakly to moderately positive for Melan-A, of uncertain significance. Laboratory Developed Test (LDT) Disclaimer: Performance characteristics of immunohistochemical, immunofluorescent and chromogenic in-situ hybridization tests have been determined by the performing laboratory within [facility]???s [facility] [place] ([facility], [facility], [facility] or [facility]) in a manner consistent with CLIA requirements. One or more of these tests have not been cleared or approved by the FDA. [facility] is regulated under CLIA as qualified to perform high-complexity testing. These tests are used for clinical purposes. They should not be regarded as investigational or for research. Positive and negative controls stain appropriately. Performed By: #### S ####[facility] [id number] [address] FINAL DIAGNOSIS Normal [facility] Comment on above: Order Comment: Speci men Type: TISSUE SPECIMENOrdering Facility: [facility] Address: [address] [place] [address] Result Comment: A. K idney, right lateral, biopsy: - Renal parenchyma, negative for neoplasm. B. Kidney, right medial, biopsy: - Renal parenchyma with focal eosinophilic tubules. C. Kidney, right inferior, biopsy: - Renal parenchyma, negative for neoplasm. D. Kidney, right, partial nephrectomy: - Low-grade oncocytic tumor - see Comment. - 4.0 cm greatest dimension. - No definite involvement of parenchymal margin. - Small angiomyolipoma within the tumor, 2 mm. Performed By: #### S ####[facility] [id number] [address] FINAL PERFORMING LAB Normal [facility] Comment on above: Order Comment: Speci men Type: TISSUE SPECIMENOrdering Facility: [facility] Address: [address] [place] [address] Result Comment: Diag nostic interpretation performed at [facility], [address] [place] [address] CLIA# [id number] Chief Underwriter: Nicola Alas M.D. Performed By: #### S ####[facility] LABCLIA [id number] [place] [address] [place] GROSS DESCRIPTION Normal [facility] Comment on above: Order Comment: Speci men Type: TISSUE SPECIMENOrdering Facility: [facility] Address: [address] [place] [address] Result Comment: A. K IDNEY BIOPSY RIGHT. Received fresh and labeled as kidney biopsy right, lateral margin consists of single piece of lyon-pink tissue measuring 0.5 x 0.5 x 0.2 cm. The tissue is entirely submitted for frozen analysis in FSA1. NB/jfj 01/25/2022 B. KIDNEY BIOPSY RIGHT. Received fresh and labeled as kidney biopsy right, medial margin consists of single piece of lyon-pink tissue measuring 0.6 x 0.4 x 0.2 cm. The entire tissue is submitted for frozen analysis in FSB1. C. KIDNEY BIOPSY RIGHT. Received fresh and labeled as kidney biopsy right, inferior margin consists of a single piece of lyon-pink tissue measuring 0.3 x 0.2 x 0.1 cm. The entire tissue is submitted for frozen analysis in FSC1. NB/jfj 01/25/2022 Gross examination performed at [facility], [address] [place] [address] CLIA# [id number] D. KIDNEY PARTIAL NEPHRECTOMY RIGHT. Received fresh for frozen section consultation labeled as right renal neoplasm is an unoriented irregular shaped brown firm mass measuring 4.0 x 2.5 x 1.5 cm and weighs 9 g. Sectioning reveals lyon solid cut surfaces. The capsule is not present. Renal sinus or resection margin is not evident. A photograph is taken after sectioning. Assistant Account Executive sections are submitted as follows: D1???frozen section, D2???D6 additional random sections of mass. Gross examination performed at [facility], [address] [place], [place] [id number] CLIA# [id number] [facility] January 26, 2022 10:23 AM Performed By: #### S ####[facility] LABCLIA [id number] [place] [address] [place] INTRAOPERATIVE DIAGNOSIS Normal [facility] Comment on above: Order Comment: Speci men Type: TISSUE SPECIMENOrdering Facility: [facility] Address: [address] [place] [address] Result Comment: A. K IDNEY BIOPSY RIGHT. FSA1: Negative for neoplasm. (Dr. Braga). B. KIDNEY BIOPSY RIGHT. FSB1: Oncocytic neoplasm present at margin. (Dr. Braga). C. KIDNEY BIOPSY RIGHT. FSC1: Negative for neoplasm. (Dr. Braga). D. KIDNEY PARTIAL NEPHRECTOMY RIGHT. FSD1: Oncocytic neoplasm. (Dr. Braga). Intraoperative diagnosis performed at [facility], [address] [place] [address] CLIA# [id number] Performed By: #### S ####[facility] LABCLIA [id number] [address] CNPNon 01-24-2022 CNPN Telephone ([facility]) PHILIPPE RAY ([id number]) 1960 M Date Time Provider Department 01/24/22 SRINATH ZAVALA [facility] During your visit today, we recorded the following information about you: Jocelynn Boland Coord 01/24/2022 11:22 AM Signed Cardiac clearance and outside stress test have been scanned in. Jocelynn Boland [facility] 01/24/2022 3:30 PM Signed Outside Cardiology office notes, EKG, and echo have been scanned in. Allergies As of Date: 01/24/2022 (No Known Allergies) Date Reviewed: 01/23/2022 Reviewed by: Lurdes Tate MA - Fully Assessed Reason for Visit: PACC [Other] Cmt: Received Cardiac clearance and outside medical records Prescriptions as of 01/24/2022 - aspirin 81 mg cap Take by mouth. - amLODIPine (NORVASC) 10 mg tablet Take 10 mg by mouth once daily. - hydroCHLOROthiazide (HYDRODIURIL, ESIDRIX) 12.5 mg tablet Take 12.5 mg by mouth once daily. - omeprazole (PRILOSEC) 20 mg capsule Take 20 mg by mouth once daily. Problem List As Of Date 01/24/2022 Noted Resolved HTN (hypertension) [I10] 01/23/2022 Atrial fibrillation (HCC) [I48.91] 01/23/2022 GERD (gastroesophageal reflux disease) [K21.9] 01/23/2022 Encounter Status:Closed by JOCELYNN HILL on 01/24/22 Normal [facility] Bacteria Ur Culton Bacteria identified Cx Nom (U) CULTURE, URINE: No growth (<1,000 CFU/ml) Normal [facility] Comment on above: Performed By: #### 6 30-4 ####[facility] LABCLIA [id number] [address] STATES OF [facility] CBC panel Auto (Bld)on 01-23 Erythrocyte distribution width (RBC) [Ratio] 12.3 % Normal 11.5-15.0 [facility] Comment on above: Order Comment: Speci men Type: BLOOD SPECIMENOrdering Facility: [facility] Address: [address] [place] [address] Performed By: #### 5 8410-2 ####[facility] LABIA [id number] [address] STATES OF [facility] Hematocrit (Bld) [Volume fraction] 41.5 % Normal 39.0-51.0 [facility] Comment on above: Order Comment: Speci men Type: BLOOD SPECIMENOrdering Facility: [facility] Address: [address] [place] [address] Performed By: #### 5 8410-2 ####[facility] LABCLIA [id number] [address] [place] Hemoglobin (Bld) [Mass/Vol] 13.4 g/dL Normal 13.0-17.0 [facility] Comment on above: Order Comment: Speci men Type: BLOOD SPECIMENOrdering Facility: [facility] Address: [address] [place], [place] [address] Performed By: #### 5 8410-2 ####[facility] LABIA [id number] [address] MCH (RBC) [Entitic mass] 27.6 pg Normal 26.0-34.0 [facility] Comment on above: Order Comment: Speci men Type: BLOOD SPECIMENOrdering Facility: [facility] Address: [address] [place], [place] [address] Performed By: #### 5 8410-2 ####[facility] [id number] [address] [place] MCHC (RBC) [Mass/Vol] 32.3 g/dL Normal 30.5-36.0 [facility] Comment on above: Order Comment: Speci men Type: BLOOD SPECIMENOrdering Facility: [facility] Address: [address] [place], [place] [address] Performed By: #### 5 8410-2 ####[facility] [id number] [address] [place] MCV (RBC) [Entitic vol] 85.6 fL Normal 80.0-100.0 [facility] Comment on above: Order Comment: Speci men Type: BLOOD SPECIMENOrdering Facility: [facility] Address: [address] [place], [place] [address] Performed By: #### 5 8410-2 ####[facility] [id number] [address] [place] Nucleated RBC (Bld) [#/Vol] 10*3/uL Normal <0.01 [facility] Comment on above: Order Comment: Speci men Type: BLOOD SPECIMENOrdering Facility: [facility] Address: [address] [place], [place] [address] Performed By: #### 5 8410-2 ####[facility] LABCLIA [id number] [place] [address] [place] Platelet mean volume (Bld) [Entitic vol] 9.9 fL Normal 9.0-12.7 [facility] Comment on above: Order Comment: Speci men Type: BLOOD SPECIMENOrdering Facility: [facility] Address: [address] [place] [address] Performed By: #### 5 8410-2 ####[facility] LABCLIA [id number] [place] [address] [place] Platelets (Bld) [#/Vol] 305 10*3/uL Normal 150-400 [facility] Comment on above: Order Comment: Speci men Type: BLOOD SPECIMENOrdering Facility: [facility] Address: [address] [place], [place] [address] Performed By: #### 5 8410-2 ####[facility] LABCLIA [id number] [place] [address] [place] RBC (Bld) [#/Vol] 4.85 10*6/uL Normal 4.20-6.00 [facility] Comment on above: Order Comment: Speci men Type: BLOOD SPECIMENOrdering Facility: [facility] Address: [address] [place] [address] Performed By: #### 5 8410-2 ####[facility] LABCLIA [id number] [place] [address] [place] WBC (Bld) [#/Vol] 7.69 10*3/uL Normal 3.70-11.00 [facility] Comment on above: Order Comment: Speci men Type: BLOOD SPECIMENOrdering Facility: [facility] Address: [address] [place], [place] [address] Performed By: #### 5 8410-2 ####[facility] LABCLIA [id number] [place] [id number] [place] CNOVon 01-23-2022 CNOV Office Visit (UROLMN ) PHILIPPE RAY ([id number]) 1960 M Date Time Provider Department 01/23/22 1:30 PM AWAIS DUNCAN UROGUME During your visit today, we recorded the following information about you: Awais Duncan APRN.TRAINING ADMINISTRATOR 01/23/2022 2:04 PM Signed [facility] PRE-OP NOTE Philippe Ray is a 61 year old male. Pre-op Date: January 20, 2022 Date of Procedure: Sun01/25/2022 Does the patient have an active COVID-19 test in [employer]? Yes Procedure/Surgery: Robotic Partial Nephrectomy. Diagnosis: # 3cm right renal mass Primary Surgeon: MD Kan Christopher There were no vitals taken for this visit. Pain Assessment: Are you currently having pain? No 0 on a scale of 0 to 10 Surgical Guide Book Status: Patient given book today. Dialysis Guide Book Status: Patient given book today. Allergies Reviewed: Yes Medications Reviewed: Yes Is patient currently on oral steroids?: No Has the patient had a UTI in the past month?: No. Does the patient have any artificial joints (last 2 years), metal parts, pacemakers or cardiac/ureteral stents in place?: No - bilateral hips >4 yrs ago Does the patient have diabetes?: No Is the patient routinely taking anticoagulants?: Yes. Patient stopped Aspirin on 01/23/2022. Can the patient have an IV put in either arm?: Yes Urine Dip Complete?: Yes Urine dip shows: Recent Labs 01/23/22 1228 01/23/22 1214 UGLUC Negative Negative UBILI Negative Negative UKET Negative Negative UHB Negative Negative UPH 5.5 6.0 UPROT Negative 1+* UWBC -- 0-5 /HPF URINE CULTURE COMPLETE?: Not Applicable Ostomy/Stoma Nurse appointment made/completed: N/A IMPACT/Medical Clearance: Cleared per IMPACT - Yes [facility]: Cleared per [facility] - N/A All testing on cureform has been scheduled: Yes Consent Signed: Consent not in Epic. Surgeon notified via staff messages. DOS Orders Placed and Signed: Yes. Pre-op HANDP Done by Impact: Yes. PATIENT INSTRUCTIONS FOR SURGERY 1.) DO NOT HAVE ANYTHING TO EAT AFTER MIDNIGHT THE DAY BEFORE SURGERY except for certain morning medications as instructed by the doctor. Candy, mints, gum, and smoking are NOT permitted. You may drink clear liquids (Sprite, water, darío leonie) up to two hours before your arrival time on the day of surgery. 2.) Medications to be taken on the morning of surgery with a few sips of water: per IMPACT 3.) Please bring all your prescribed inhalers (if you have any you normally take) to the hospital. 4.) Arrival time: Call for arrival. 5.) Prep given: No 6.) Lovenox instructions given: N/A 7.) Patient reminded that surgery time provided day before surgery is tentative based on potential changes with transplants. Recommendations: Optimization pending: LABS and COVID. cleared by Dr Becerra - local machine applicator cementer. 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 - amLODIPine (NORVASC) 10 mg tablet Take 10 mg by mouth once daily. - hydroCHLOROthiazide (HYDRODIURIL, ESIDRIX) 12.5 mg tablet Take 12.5 mg by mouth once daily. - omeprazole (PRILOSEC) 20 mg capsule Take 20 mg by mouth once daily. Problem List As Of Date 01/23/2022 Noted Resolved HTN (hypertension) [I10] 01/23/2022 Atrial fibrillation (HCC) [I48.91] 01/23/2022 GERD (gastroesophageal reflux disease) [K21.9] 01/23/2022 Encounter Status:Closed by AWAIS DUNCAN on 01/23/22 Normal [facility] CONFIRM BLOOD TYPEon 022 ABO O Normal [facility] Comment on above: Order Comment: Speci men Type: BLOOD SPECIMEN [facility] Address: [address] [place] [address] Performed By: #### 5 7021-8 #### [facility] CLIA [id number] [address] [place] [address] [place] Rh Nom (Bld) Positive Normal [facility] Comment on above: Order Comment: Speci men Type: BLOOD SPECIMEN [facility] Address: [address] [place] [address] Performed By: #### 5 7021-8 #### [facility] CLIA [id number] [address] [place] [address] [place] Comprehensive metabolic 2000 panelon 01-23-2022 Albumin [Mass/Vol] 4.3 g/dL Normal 3.9-4.9 [facility] Comment on above: Order Comment: Speci men Type: BLOOD SPECIMEN [facility] Address: [address] [place] [address] Performed By: #### 2 4323-8 #### [facility] CLIA [id number] [address] [place] [address] [place] ALP [Catalytic activity/Vol] 68 U/L Normal 38-113 [facility] Comment on above: Order Comment: Speci men Type: BLOOD SPECIMEN [facility] Address: [address] [place], [place] [address] Performed By: #### 2 4323-8 #### [facility] CLIA [id number] [address] [place] [address] [place] ALT [Catalytic activity/Vol] 20 U/L Normal 10-54 [facility] Comment on above: Order Comment: Speci men Type: BLOOD SPECIMEN [facility] Address: [address] [place], [place] [address] Performed By: #### 2 4323-8 #### [facility] CLIA [id number] [address] [place] [address] [place] Anion gap [Moles/Vol] 10 mmol/L Normal 9-18 [facility] Comment on above: Order Comment: Speci men Type: BLOOD SPECIMEN [facility] Address: [address] [place], [place] [address] Performed By: #### 2 4323-8 #### [facility] CLIA [id number] [address] [place] [address] [place] AST [Catalytic activity/Vol] 19 U/L Normal 14-40 [facility] Comment on above: Order Comment: Speci men Type: BLOOD SPECIMEN [facility] Address: [address] [place], [place] [address] Performed By: #### 2 4323-8 #### [facility] CLIA [id number] [address] [place] [address] [place] Bilirubin [Mass/Vol] 0.2 mg/dL Normal 0.2-1.3 [facility] Comment on above: Order Comment: Speci men Type: BLOOD SPECIMEN [facility] Address: [address] [place], [place] [address] Performed By: #### 2 4323-8 #### [facility] CLIA [id number] [address] [place] [address] [place] Calcium [Mass/Vol] 9.5 mg/dL Normal 8.5-10.2 [facility] Comment on above: Order Comment: Speci men Type: BLOOD SPECIMEN [facility] Address: [address] [place], [place] [address] Performed By: #### 2 4323-8 #### [facility] CLIA [id number] [address] [place] [address] [place] Chloride [Moles/Vol] 103 mmol/L Normal 97-105 [facility] Comment on above: Order Comment: Speci men Type: BLOOD SPECIMEN [facility] Address: [address] [place] [address] Performed By: #### 2 4323-8 #### [facility] CLIA [id number] [address] [place] [address] [place] CO2 [Moles/Vol] 27 mmol/L Normal 22-30 [facility] Comment on above: Order Comment: Speci men Type: BLOOD SPECIMEN [facility] Address: [address] [place] [address] Performed By: #### 2 4323-8 #### [facility] CLIA [id number] [address] [place] [address] STATES OF [facility] Creatinine [Mass/Vol] 0.66 mg/dL Low 0.73-1.22 [facility] Comment on above: Order Comment: Speci men Type: BLOOD SPECIMEN [facility] Address: [address] [place] [address] Performed By: #### 2 4323-8 #### [facility] CLIA [id number] [address] [place] [address] OF [place] ESTIMATED GLOMERULAR FILTRATION RATE 107 mL/min/1.73m??? Normal >=60 [facility] Comment on above: Order Comment: Speci men Type: BLOOD SPECIMEN [facility] Address: [address] [place] [address] Result Comment: Bronwyn mated Glomerular Filtration Rate (eGFR) is calculated using the 2020 CKD-EPI creatinine equation. This equation utilizes serum creatinine, sex, and age as parameters. The creatinine assay has traceable calibration to isotope dilution-mass spectrometry. Refer to KDIGO guidelines for clinical interpretation. In patients with unstable renal function, e.g. those with acute kidney injury, the eGFR may not accurately reflect actual GFR. Performed By: #### 2 4323-8 #### [facility] CLIA [id number] [address] [place] [address] [place] Glucose [Mass/Vol] 102 mg/dL High 74-99 [facility] Comment on above: Order Comment: Speci men Type: BLOOD SPECIMEN [facility] Address: [address] [place], [place] [address] Result Comment: The [place] Diabetes Association (ADA) provides guidance for cutoff values for fasting glucose and random glucose. The ADA defines fasting as no caloric intake for at least 8 hours. Fasting plasma glucose results between 100 to 125 mg/dL indicate increased risk for diabetes (prediabetes). Fasting plasma glucose results greater than or equal to 126 mg/dL meet the criteria for diagnosis of diabetes. In the absence of unequivocal hyperglycemia, results should be confirmed by repeat testing. In a patient with classic symptoms of hyperglycemia or hyperglycemic crisis, random plasma glucose results greater than or equal to 200 mg/dL meet the criteria for diagnosis of diabetes. Reference: Standards of Medical Care in Diabetes 2016, [place] [employer] Association. Diabetes Care. 2016.39(Suppl 1). Performed By: #### 2 4323-8 #### [facility] CLIA [id number] [address] [place] [address] [place] Potassium [Moles/Vol] 3.6 mmol/L Low 3.7-5.1 [facility] Comment on above: Order Comment: Speci men Type: BLOOD SPECIMEN [facility] Address: [address] [place] [phone] Performed By: #### 2 4323-8 #### [facility] CLIA [id number] [address] [place] [address] [place] Protein [Mass/Vol] 7.0 g/dL Normal 6.3-8.0 [facility] Comment on above: Order Comment: Speci men Type: BLOOD SPECIMEN [facility] Address: [address] [place] [address] Performed By: #### 2 4323-8 #### [facility] CLIA [id number] [address] [place] [address] Sodium [Moles/Vol] 140 mmol/L Normal 136-144 [facility] Comment on above: Order Comment: Speci men Type: BLOOD SPECIMEN [facility] Address: [address] [place] [address] Performed By: #### 2 4323-8 #### [facility] CLIA [id number] [address] [place] [address] [place] Urea nitrogen [Mass/Vol] 15 mg/dL Normal 9-24 [facility] Comment on above: Order Comment: Speci men Type: BLOOD SPECIMEN [facility] Address: [address] [place] [address] Performed By: #### 2 4323-8 #### [facility] CLIA [id number] [address] [place] [address] [place] HISTORY PHYSICALon HISTORY PHYSICAL HNO ID: [id number] Author: Srinath Zavala PA-C Service: ? Author Type: Physician Tailings Dam Pumper Type: HANDP Filed: 01/24/2022 4:58 PM Note Text: HISTORY AND PHYSICAL EXAMINATION SERVICE DATE: 01/23/2022 SERVICE TIME: 10:25 AM PRIMARY CARE PHYSICIAN: No primary care provider on file. REASON FOR VISIT: Philippe Ray is a 61 year old male who is scheduled for ROBOTIC LAPAROSCOPIC NEPHRECTOMY PARTIAL at the request of Dr. Phil Kan for consultation. My final recommendation will be communicated back to the requesting physician by way of shared medical record or letter. The patient has the following: ACTIVE PROBLEM LIST Htn (Hypertension) Atrial Fibrillation (Hcc) Gerd (Gastroesophageal Reflux Disease) Subjective CHIEF COMPLAINT: Renal neoplasm HPI: Patient is a 61 year old male who is scheduled for ROBOTIC LAPAROSCOPIC NEPHRECTOMY PARTIAL on 01/25/22. Patient has right renal mass found incidentally. He was also found to have kidney stones, and had surgery for these last week. Denies dysuria, hematuria. Denies any fevers, chills, nausea, vomiting, SOB or chest pain. PAST MEDICAL HISTORY Diagnosis Date - Atrial fibrillation (HCC) 01/23/2022 - GERD (gastroesophageal reflux disease) 01/23/2022 - HTN (hypertension) 01/23/2022 PAST SURGICAL HISTORY Procedure Laterality Date - PAST SURGICAL HISTORY OF Kidney stone - PAST SURGICAL HISTORY OF Ganglion cyst - PAST SURGICAL HISTORY OF Deviated septum - PAST SURGICAL HISTORY OF Bilateral Hip replacement - PAST SURGICAL HISTORY OF Vasectomy - TONSILLECTOMY HX FAMILY HISTORY Problem Relation Age of Onset - Anesthesia Problems No Family History SOCIAL HISTORY: Social History Tobacco Use - Smoking status: Never Smoker - Smokeless tobacco: Never Used Substance Use Topics - Alcohol use: Yes Alcohol/week: 2.0 standard drinks Types: 2 Cans of Beer (12oz) per week Comment: 2-3 drinks per week - Drug use: Never MEDICATIONS: Prior to Admission medications as of 01/23/22 1249 Medication Sig Last Dose Taking aspirin 81 mg cap Take by mouth. Taking Yes amLODIPine (NORVASC) 10 mg tablet Take 10 mg by mouth once daily. Taking Yes hydroCHLOROthiazide (HYDRODIURIL, ESIDRIX) 12.5 mg tablet Take 12.5 mg by mouth once daily. Taking Yes omeprazole (PRILOSEC) 20 mg capsule Take 20 mg by mouth once daily. Taking Yes No medication comments found. CURRENT ALLERGIES: ALLERGIES No Known Allergies COVID VACCINATION STATUS: Fully vaccinated REVIEW OF SYSTEMS: PAIN ASSESSMENT: General: No weight loss, malaise or fevers. Neuro: Negative for TIA's Seizures Stroke-residual deficit Stroke-No residual deficit Tumor involving FINANCE PROFESSIONAL Delirium Dementia Respiratory: Negative for Asthma, COPD, Current cough, Dyspnea, Pneumonia within 6 weeks (date), Tobacco Use Cardiovascular: Negative for Recent CT, Angina, CAD, Chest Pain, CHF, DVT/PE +HTN- home 130/87 +Atrial fibrillation- saw cardiology week and a half ago GI: Negative for Nausea, Vomiting, Abdominal pain, Hepatitis, Liver disease +GERD : No current dysuria or hematuria. +See HPI Endocrine: No history of diabetes. Has not taken steroids within the past 30 days. No history of endocrinological symptoms or problems. Hematology: No history of a bleeding or clotting disorder. +ASA Oncology: +See HPI Psych: No history of psychiatric symptoms or problems. Musculoskeletal: Negative for joint pain or swelling, back pain or muscle pain. Skin: Negative for lesions, rash and itching. Objective PHYSICAL EXAM: VITALS: BP 116/92 Pulse 95 Temp (Src) 98.3 (Temporal) Ht 6' 0 (1.83m) Wt 199 lb 14.4 oz (90.7kg) SpO2 98% BMI 27.11 kg/(m2). General: Alert and oriented, No acute distress, Healthy appearance Skin: Normal color, no rash, no lesions. HEENT: EOM, pupils equal, round and reactive., No carotid bruits Cardiovascular: Normal S1 AND S2, no rubs, murmurs or gallops. No JVD. Pulse regular. Lungs: Normal breath sounds, no wheezes or crackles. Extremities: No deformity, no edema or tenderness, no joint swelling or clubbing. Neurological: Normal cognition and motor skills. Pulses: Radial pulses normal +2. Diagnostic tests reviewed for today's visit: Echocardiogram 01/19/22: NM stress test 01/19/22: No results found for: HBA1C PENDING labs, EKG Assessment/Plan HTN (hypertension) Stable, on rx. BP 116/92 in office today. Atrial fibrillation (HCC) Patient was found to have atrial fibrillation 2 weeks ago during pre-operative testing for kidney stones. 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 Patient denies palpitations, SOB or chest pain. On ASA. RRR today on exam, EKG pending. Cardiac clearance and records requested. GERD (gastroesophageal reflux disease) Stable, on rx. METS: Climb a flight of stairs or walk up a hill (5.50 METs) Patient denies any chest pain or undue shortness of breath with the above ph (more content not included)... Normal [facility] PT panel Coag (PPP)on 2021 INR Coag (PPP) [Relative time] 1.0 {INR} Normal 0.9-1.3 [facility] Comment on above: Order Comment: Speci men Type: BLOOD SPECIMENOrdering Facility: [facility] Address: [address] [place] [address] [place] [address] Result Comment: Carolyn min K Antagonist (VKA) Therapeutic Range: INR 2 to 3 (Target INR of 2.5) Note: For patients treated with VKA drugs, such as warfarin, the [employer] 2012 Guideline recommends a therapeutic INR range of 2 to 3 (target INR of 2.5). This recommendation includes high-risk patients with antiphospholipid syndrome with previous arterial or venous thromboembolism, current-generation mechanical or bioprosthetic aortic heart valve replacement. Note: Patients with mechanical aortic valve replacement and additional risk factors for thromboembolic events (atrial fibrillation, previous thromboembolism, LV dysfunction, hypercoagulable conditions) or an older generation mechanical AVR (i.e., ball in-Cage) or any mechanical MVR should have a INR therapeutic range of 2.5 to 3.5 (target INR of 3). hCarley GH, et al. Chest 2012, 141:7S-47S Wili RA, et al. [facility] 2017, 70: 252-289 Performed By: #### 3 4528-0, 37524-7 ####[facility] [id number] [place] [address] [place] PT Coag (PPP) [Time] 10.7 s Normal 9.7-13.0 [facility] Comment on above: Order Comment: Speci men Type: BLOOD SPECIMENOrdering Facility: [facility] Address: [address] [address] Performed By: #### 3 4528-0, 10560-1 ####[facility] [id number] [place] [address] [place] SARS-CoV-2 RNA Resp Ql AMBER+p robeon 01-23-2022 SARS-CoV-2 (COVID-19) RNA AMBER+probe Ql (Resp) COVID 19 RESULT: SARS-CoV-2 (Agent of COVID-19) Not Detected by RT-PCR or equivalent method. This test was developed and its performance characteristics determined by [facility] [place]. This test has been authorized by FDA under an Emergency Use Authorization (EUA). This test has been validated in accordance with the FDA's Guidance Document Policy for Diagnostics Testing in Laboratories Certified to Perform High Complexity Testing under CLIA prior to Emergency use Authorization for Coronavirus Disease 2019 during the Public Health Emergency issued on January 17, 2020. Test performed by [facility], [facility] [place], [address] [place] [address]. Normal [facility] Comment on above: Performed By: #### 9 4500-6 ####[facility] [id number] [address] OF [place] TYPE AND SCREEN,30 DAYon ABO O Normal [facility] Comment on above: Order Comment: Speci men Type: BLOOD SPECIMEN [facility] Address: [address] [place] [address] Performed By: #### 5 7021-8 #### [facility] CLIA [id number] [address] [place] [address] OF [place] HISTORICAL AB SCR STATUS Negative Normal [facility] Comment on above: Order Comment: Speci men Type: BLOOD SPECIMEN [facility] Address: [address] [place] [address] Performed By: #### 5 7021-8 #### [facility] CLIA [id number] [address] [place] [address] [place] Rh Nom (Bld) Positive Normal [facility] Comment on above: Order Comment: Speci men Type: BLOOD SPECIMEN [facility] Address: [address] [place] [address] Performed By: #### 5 7021-8 #### [facility] CLIA [id number] [address] [place] [address] [place] URINALYSIS, REFLEX MICROSCOP ICon 01-23-2022 Bilirubin Ql (U) Negative Normal Negative [facility] Comment on above: Order Comment: Speci men Type: URINE SPECIMENOrdering Facility: [facility] Address: [address] [place] [address] Performed By: #### L [id number] ####[facility]7CLIA [id number] [place] [address] [place] Clarity (Unsp spec) Clear Normal Clear [facility] Comment on above: Order Comment: Speci men Type: URINE SPECIMENOrdering Facility: [facility] Address: [address] [place], [place] [address] Performed By: #### L [id number] ####[facility] Q7CLIA [id number] [place] [address] [place] Color (U) Light Yellow Normal Yellow [facility] Comment on above: Order Comment: Speci men Type: URINE SPECIMENOrdering Facility: [facility] Address: [address] [place], [place] [address] Performed By: #### L [id number] ####[facility] Q7CLIA [id number] [place] [address] [place] Glucose Test strip (U) [Mass/Vol] Negative Normal Negative [facility] Comment on above: Order Comment: Speci men Type: URINE SPECIMENOrdering Facility: [facility] Address: [address] [place], [place] [address] Performed By: #### L [id number] ####[facility]CLIA [id number] [place] [address] [place] Hemoglobin Ql (U) Negative Normal Negative [facility] Comment on above: Order Comment: Speci men Type: URINE SPECIMENOrdering Facility: [facility] Address: [address] [place] [address] Performed By: #### L [id number] ####[facility] Q7CLIA [id number] [place] [address] [place] Ketones Ql (U) Negative Normal Negative [facility] Comment on above: Order Comment: Speci men Type: URINE SPECIMENOrdering Facility: [facility] Address: [address] [place], [place] [address] Performed By: #### L [id number] ####[facility] Q[facility]CLIA [id number] [place] [address] [place] Leukocyte esterase Test strip Ql (U) Negative Normal Negative [facility] Comment on above: Order Comment: Speci men Type: URINE SPECIMENOrdering Facility: [facility] Address: [address] [place], [place] [address] Performed By: #### L [id number] ####[facility] Q7CLIA [id number] [place] [address] [place] Nitrite Ql (U) Negative Normal Negative [facility] Comment on above: Order Comment: Speci men Type: URINE SPECIMENOrdering Facility: [facility] Address: [address] [place] [address] Performed By: #### L [id number] ####[facility] Q7CLIA [id number] [place] [address] [place] pH (U) 5.5 [pH] Normal 5.0-8.0 [facility] Comment on above: Order Comment: Speci men Type: URINE SPECIMENOrdering Facility: [facility] Address: [address] [place] [address] Performed By: #### L [id number] ####[facility] Q7CLIA [id number] [place] [address] [place] Protein (U) [Mass/Vol] Negative Normal Negative [facility] Comment on above: Order Comment: Speci men Type: URINE SPECIMENOrdering Facility: [facility] Address: [address] [place], [place] [address] Performed By: #### L [id number] ####[facility] Q7CLIA [id number] [place] [address] [place] Specific gravity (U) [Rel density] 1.027 Normal 1.005-1.030 [facility] Comment on above: Order Comment: Speci men Type: URINE SPECIMENOrdering Facility: [facility] Address: [address] [place], [place] [address] Performed By: #### L [id number] ####[facility] Q7CLIA [id number] [place] [address] [place] Urobilinogen Ql (U) Negative Normal Negative [facility] Comment on above: Order Comment: Speci men Type: URINE SPECIMENOrdering Facility: [facility] Address: [address] [place], [place] [address] Performed By: #### L [id number] ####[facility] Q7CLIA [id number] [place] [address] [place] Urinalysis complete panel (U )on 01-23-2022 Bilirubin Ql (U) Negative Normal Negative [facility] Comment on above: Order Comment: Speci men Type: URINE SPECIMENOrdering Facility: [facility] Address: [address] [place], [place] [address] Performed By: #### 2 4356-8 ####[facility] [id number] [place] [address] [place] Clarity (Unsp spec) Clear Normal Clear [facility] Comment on above: Order Comment: Speci men Type: URINE SPECIMENOrdering Facility: [facility] Address: [address] [place] [address] Performed By: #### 2 4356-8 ####[facility] [id number] [place] [address] [place] Color (U) Light Yellow Normal Yellow [facility] Comment on above: Order Comment: Speci men Type: URINE SPECIMENOrdering Facility: [facility] Address: [address] [place], [place] [address] Performed By: #### 2 4356-8 ####[facility] [id number] [address] Glucose Test strip (U) [Mass/Vol] Negative Normal Negative [facility] Comment on above: Order Comment: Speci men Type: URINE SPECIMENOrdering Facility: [facility] Address: [address] [place], [place] [address] Performed By: #### 2 4356-8 ####[facility] [id number] [address] [place] Hemoglobin Ql (U) Negative Normal Negative [facility] Comment on above: Order Comment: Speci men Type: URINE SPECIMENOrdering Facility: [facility] Address: [address] [place] [address] Performed By: #### 2 4356-8 ####[facility] [id number] [address] [facility] Ketones Ql (U) Negative Normal Negative [facility] Comment on above: Order Comment: Speci men Type: URINE SPECIMENOrdering Facility: [facility] Address: [address] [place], [place] [address] Performed By: #### 2 4356-8 ####[facility] [id number] [address] [place] [facility] Leukocyte esterase Test strip Ql (U) Negative Normal Negative [facility] Comment on above: Order Comment: Speci men Type: URINE SPECIMENOrdering Facility: [facility] Address: [address] [place] [address] Performed By: #### 2 4356-8 ####[facility] [id number] [place] [address] [place] Nitrite Ql (U) Negative Normal Negative [facility] Comment on above: Order Comment: Speci men Type: URINE SPECIMENOrdering Facility: [facility] Address: [address] [place], [place] [address] Performed By: #### 2 4356-8 ####[facility] [id number] [place] [address] [place] pH (U) 6.0 [pH] Normal 5.0-8.0 [facility] Comment on above: Order Comment: Speci men Type: URINE SPECIMENOrdering Facility: [facility] Address: [address] [place] [address] Performed By: #### 2 4356-8 ####[facility] [id number] [place] [address] [place] Protein (U) [Mass/Vol] 1+ Abnormal Negative [facility] Comment on above: Order Comment: Speci men Type: URINE SPECIMENOrdering Facility: [facility] Address: [address] [place] [address] Performed By: #### 2 4356-8 ####[facility] [id number] [place] [address] [place] RBC LM.HPF (Urine sed) [#/Area] 3-5 /HPF Abnormal 0-3 /HPF [facility] Comment on above: Order Comment: Speci men Type: URINE SPECIMENOrdering Facility: [facility] Address: [address] [place] [address] Performed By: #### 2 4356-8 ####[facility] [id number] [place] [address] [place] Specific gravity (U) [Rel density] 1.024 Normal 1.005-1.030 [facility] Comment on above: Order Comment: Speci men Type: URINE SPECIMENOrdering Facility: [facility] Address: [address] [place], [place] [address] Performed By: #### 2 4356-8 ####[facility] [id number] [place] [address] [place] Urobilinogen Ql (U) Negative Normal Negative [facility] Comment on above: Order Comment: Speci men Type: URINE SPECIMENOrdering Facility: [facility] Address: [address] [place] [address] Performed By: #### 2 4356-8 ####[facility] [id number] [place] [address] [place] WBC LM.HPF (Urine sed) [#/Area] 0-5 /HPF Normal 0-5 /HPF [facility] Comment on above: Order Comment: Speci men Type: URINE SPECIMENOrdering Facility: [facility] Address: [address] [place] [address] Performed By: #### 2 4356-8 ####[facility] [id number] [place] [address] [place] aPTT PPPon 01-23-2022 aPTT Coag (PPP) [Time] 27.3 s Normal 23.0-32.4 [facility] Comment on above: Order Comment: Speci men Type: BLOOD SPECIMENOrdering Facility: [facility] Address: [address] [place] [address] Performed By: #### 3 4528-0, 84694-8 ####[facility] [id number] [place] [address] [place] No Panel Informationon 01-20 Normal [facility] [address] DO Work Phone: CNPEstelle 01-19-2022 CNPN Telephone (GLQ) PHILIPPE RAY ([id number]) 1960 M Date Time Provider Department 3/3/22 WEIGHT, CHRISTOPHER GLQ During your visit today, we recorded the following information about you: Amanda Andrew 01/19/2022 11:04 AM Signed Hope - with pt's insurance, [employer] - called to give her information incase help was needed to set up [facility] after surgery. [phone] ext [phone] Amanda Andrew Urology Allergies As of Date: 01/19/2022 (Not on File) Date Reviewed: 12/15/2021 Reviewed by: Kim Alexander MA - Fully Assessed Reason for Visit: Insurance Contact [Other] Prescriptions as of 01/19/2022 - amLODIPine (NORVASC) 10 mg tablet Take 10 mg by mouth once daily. - hydroCHLOROthiazide (HYDRODIURIL, ESIDRIX) 12.5 mg tablet Take 12.5 mg by mouth once daily. - omeprazole (PRILOSEC) 20 mg capsule Take 20 mg by mouth once daily. Problem List As Of Date: 01/19/2022 (None) Encounter Status:Closed by AMANDA POST on 01/19/22 Normal [facility] No Panel Informationon 01-19 [facility] [place] [address] [place] Work Phone: [facility] [place] [address] DO Work Phone: XR KUB 1 VIEWon 01-12-2022 XR KUB 1 VIEW EXAMINATION: XR KUB 1 VIEW HISTORY: Urolithiasis COMPARISON: No relevant comparison available. FINDINGS: KIDNEY/URETER - RIGHT: No visible renal or ureteral calcifications. KIDNEY/URETER - LEFT: Approximately 6 mm calcification projecting over left kidney. PELVIS: No visible ureteral stones. BOWEL: No abnormal dilation or deviation. BONES: Bilateral hip replacements. OTHER: Negative. No abnormal gaseous collections. IMPRESSION: 1. Left nephrolithiasis. No comparison studies. Electronically authenticated by: DORY BATISTA Date: 2022-01-12 07:28 Normal [facility] Tobacco Screening.on 022 Adult depression screening assessment No [facility] [place] [address] DO Work Phone: Tobacco use status CPH[facility] b) No M [facility] [address] DO Work Phone: CBC AUTO DIFFon 01-05-2022 BASO # 0.1 103/ul Normal 0.0-0.1 [facility] Comment on above: Performed By: #### C BC #### [facility] [address] [address] [address] Breanne Kim Basophils/100 WBC (Bld) 0.8 % Normal 0.2-2.0 [facility] Comment on above: Performed By: #### C BC #### [facility] [address] [address] [address] Breanne Kim EO # 0.3 103/ul Normal 0.0-0.7 [facility] Comment on above: Performed By: #### C BC #### [facility] [address] [place] [address] Dr. Breanne Kim Eosinophils/100 WBC (Bld) 3.5 % Normal 0.9-7.0 [facility] Comment on above: Performed By: #### C BC #### [facility] [address] [place] [address] Dr. Breanne Kim Erythrocyte distribution width (RBC) [Ratio] 12.5 % Normal 11.0-15.0 [facility] Comment on above: Performed By: #### C BC #### [facility] [address] [place] [address] Dr. Breanne Kim Hematocrit (Bld) [Volume fraction] 42.7 % Normal 42.0-54.0 [facility] Comment on above: Performed By: #### C BC #### [facility] [address] [place] [address] Dr. Breanne Kim Hemoglobin (Bld) [Mass/Vol] 13.9 g/dL Critically low 14.0-18.0 [facility] Comment on above: Performed By: #### C BC #### [facility] [address] [place] [address] Dr. Breanne Kim IG # 0.05 10e3/ul Critically high 0.00-0.03 [facility] Comment on above: Performed By: #### C BC #### [facility] [address] [place] [address] Dr. Breanne Kim IG % 0.7 % Critically high 0.0-0.5 [facility] Comment on above: Performed By: #### C BC #### [facility] [address] [place] [address] Dr. Breanne Kim LYMPH # 2.0 103/ul Normal 1.2-3.8 [facility] Comment on above: Performed By: #### C BC #### [facility] [address] [place] [address] Dr. Breanne Kim Lymphocytes/100 WBC (Bld) 26.4 % Normal 20.5-60.0 [facility] Comment on above: Performed By: #### C BC #### [facility] [address] [place] [address] Dr. Breanne Kim MANUAL DIFF REQ NO Normal [facility] Comment on above: Performed By: #### C BC #### [facility] [address] [place] [address] Dr. Breanne Kim MCH (RBC) [Entitic mass] 28.4 pg Normal 25.9-34.0 [facility] Comment on above: Performed By: #### C BC #### [facility] [address] [place] [address] Dr. Breanne Kim MCHC (RBC) [Mass/Vol] 32.6 g/dL Normal 29.9-35.2 [facility] Comment on above: Performed By: #### C BC #### [facility] [address] [place] [address] Dr. Breanne Kim MCV (RBC) [Entitic vol] 87.3 fL Normal 80.0-94.0 [facility] Comment on above: Performed By: #### C BC #### [facility] [address] [place] [address] Dr. Breanne Kim MONO # 0.6 103/ul Normal 0.3-0.8 [facility] Comment on above: Performed By: #### C BC #### [facility] [address] [place] [address] Dr. Breanne Kim Monocytes/100 WBC (Bld) 8.4 % Normal 1.7-12.0 [facility] Comment on above: Performed By: #### C BC #### [facility] [address] [place] [address] Dr. Breanne Kim NEUT # 4.5 103/ul Normal 1.4-6.5 [facility] Comment on above: Performed By: #### C BC #### [facility] [address] [place] [address] Dr. Breanne Kim Neutrophils/100 WBC (Bld) 60.2 % Normal 43.0-75.0 [facility] Comment on above: Performed By: #### C BC #### [facility] [address] [place] [address] Dr. Breanne Kim Platelet mean volume (Bld) [Entitic vol] 9.4 fL Critically low 9.5-13.5 [facility] Comment on above: Performed By: #### C BC #### [facility] [address] [place] [address] Dr. Breanne Kim PLT 295 103/ul Normal 150-450 [facility] Comment on above: Performed By: #### C BC #### [facility] [address] [place] [address] Dr. Breanne Kim RBC 4.89 106/ul Normal 4.70-6.10 [facility] Comment on above: Performed By: #### C BC #### [facility] [address] [place] [address] Dr. Breanne Kim WBC 7.4 103/ul Normal 4.0-11.0 [facility] Comment on above: Performed By: #### C BC #### [facility] [address] [place] [address] Dr. Breanne Kim PROF CHEM 8 (BAS METB)on Anion gap [Moles/Vol] 14.6 mmol/L Normal [facility] Comment on above: Performed By: #### B MP #### [facility] [address] [place] [address] Dr. Breanne Kim Calcium [Mass/Vol] 8.6 mg/dL Normal 8.4-10.2 [facility] Comment on above: Performed By: #### B MP #### [facility] [address] [address] [address] Breanne Kim Chloride [Moles/Vol] 104 mmol/L Normal 98-107 [facility] Comment on above: Performed By: #### B MP #### [facility] [address] [address] [address] Breanne Kim CO2 [Moles/Vol] 27.4 mmol/L Normal 22.0-30.0 [facility] Comment on above: Performed By: #### B MP #### [facility] [address] [place] [address] Dr. Breanne Kim Creatinine [Mass/Vol] 0.84 mg/dL Normal 0.66-1.25 [facility] Comment on above: Performed By: #### B MP #### [facility] [address] [place] [address] Dr. Breanne Kim EGFR-AF TRISTANIAN >60 Normal >=60 [facility] Comment on above: Performed By: #### B MP #### [facility] [address] [place] [address] Dr. Breanne Kim EGFR-NON AF TRISTANIAN >60 Normal >=60 [facility] Comment on above: Performed By: #### B MP #### [facility] [address] [place] [address] Dr. Breanne Kmi Glucose [Mass/Vol] 111 mg/dL Critically high 74-106 [facility] Comment on above: Performed By: #### B MP #### [facility] [address] [address] [address] Breanne Kim Potassium [Moles/Vol] 4.0 mmol/L Normal 3.4-5.0 [facility] Comment on above: Performed By: #### B MP #### [facility] [address] [place] [address] Dr. Breanne Kim Sodium [Moles/Vol] 142 mmol/L Normal 137-145 [facility] Comment on above: Performed By: #### B MP #### [facility] [address] [address] [address] Breanne Kim Urea nitrogen [Mass/Vol] 20.0 mg/dL Normal 9.0-20.0 [facility] Comment on above: Performed By: #### B MP #### [facility] [address] [address] [address] Breanne Kim Urea nitrogen/Creatinine [Mass ratio] 23.8 mg/mg Normal [facility] Comment on above: Performed By: #### B MP #### [facility] [address] [place] [address] Dr. Breanne Kim PROTIMEon 01-05-2022 INR Coag (PPP) [Relative time] 0.99 {INR} Normal [facility] Comment on above: Performed By: #### P TT, PT #### [facility] [address] [place] [address] Dr. Breanne Kim INR GUIDELINES SEE BELOW Normal [facility] Comment on above: Result Comment: FRANKLIN RED INR: 2.0 - 3.0 CONDITIONS NOT LISTED BELOW 2.5 - 3.5 FOR PROSTHETIC HEART VALVE REPLACEMENT 2.5 - 3.5 RECURRENT THROMBOSIS Performed By: #### P TT, PT #### [facility] [address] [place] [address] Dr. Breanne Kmi PT Coag (PPP) [Time] 10.7 s Normal 9.0-11.6 [facility] Comment on above: Performed By: #### P TT, PT #### [facility] [address] [place] [address] Dr. Breanne Kim PTTon 01-05-2022 aPTT Coag (Bld) [Time] 27.4 s Normal 22.3-36.2 [facility] Comment on above: Performed By: #### P TT, PT #### [facility] [address] [place] [address] Dr. Breanne Kim HOSPon 12-28-2021 HOSP Patient:Philippe Ray MRN: Height:6' 0 (1.829 m) Weight:199 lb 14.4 oz (90.674 kg) Outpatient Medications as of 01/25/22: aspirin 81 mg cap amLODIPine (NORVASC) 10 mg tablet hydroCHLOROthiazide (HYDRODIURIL, ESIDRIX) 12.5 mg tablet omeprazole (PRILOSEC) 20 mg capsule Admission/Clinic Administered Medications as of 01/25/22: lidocaine (PF) 10 mg/mL (1 %) 1-2 mg injection (XYLOCAINE) lidocaine 1% 0.25 mL subcutaneous j-tip syringe (XYLOCAINE) lactated ringers iv infusion ceFAZolin iv piggyback 2 g in D5W (iso-osmotic) 100 mL (ANCEF) Problem List: HTN (hypertension) [I10] Atrial fibrillation (HCC) [I48.91] GERD (gastroesophageal reflux disease) [K21.9] Allergies: No Known Allergies Date Verified:01/25/22 Lab Values Lab Value Units Date High Low POTA* 3.6 mmol/L 01/23/2022 5.1 3.7 FARRUKH* 41.5 % 01/23/2022 51.0 39.0 Progress Notes (PRE ANES MAIN): Jocelynn Boland Coord 01/24/2022 11:22 AM Signed Cardiac clearance and outside stress test have been scanned in. Jocelynn Boland Coord 01/24/2022 3:30 PM Signed Outside Cardiology office notes, EKG, and echo have been scanned in. Progress Notes (UROL MAIN): Awais Duncan APRN.TRAINING ADMINISTRATOR 01/23/2022 2:04 PM Signed [facility] PRE-OP NOTE Philippe Ray is a 61 year old male. Pre-op Date: January 20, 2022 Date of Procedure: Sun01/25/2022 Does the patient have an active COVID-19 test in Epic? Yes Procedure/Surgery: Robotic Partial Nephrectomy. Diagnosis: # 3cm right renal mass Primary Surgeon: MD Kan Christopher There were no vitals taken for this visit. Pain Assessment: Are you currently having pain? No 0 on a scale of 0 to 10 Surgical Guide Book Status: Patient given book today. Dialysis Guide Book Status: Patient given book today. Allergies Reviewed: Yes Medications Reviewed: Yes Is patient currently on oral steroids?: No Has the patient had a UTI in the past month?: No. Does the patient have any artificial joints (last 2 years), metal parts, pacemakers or cardiac/ureteral stents in place?: No - bilateral hips >4 yrs ago Does the patient have diabetes?: No Is the patient routinely taking anticoagulants?: Yes. Patient stopped Aspirin on 01/23/2022. Can the patient have an IV put in either arm?: Yes Urine Dip Complete?: Yes Urine dip shows: Recent Labs 01/23/22 1228 01/23/22 1214 UGLUC Negative Negative UBILI Negative Negative UKET Negative Negative UHB Negative Negative UPH 5.5 6.0 UPROT Negative 1+* UWBC -- 0-5 /HPF URINE CULTURE COMPLETE?: Not Applicable Ostomy/Stoma Nurse appointment made/completed: N/A IMPACT/Medical Clearance: Cleared per IMPACT - Yes [facility] Clinic: Cleared per PACE - N/A All testing on cureform has been scheduled: Yes Consent Signed: Consent not in Epic. Surgeon notified via staff messages. DOS Orders Placed and Signed: Yes. Pre-op HANDP Done by Impact: Yes. PATIENT INSTRUCTIONS FOR SURGERY 1.) DO NOT HAVE ANYTHING TO EAT AFTER MIDNIGHT THE DAY BEFORE SURGERY except for certain morning medications as instructed by the doctor. Candy, mints, gum, and smoking are NOT permitted. You may drink clear liquids (Sprite, water, darío leonie) up to two hours before your arrival time on the day of surgery. 2.) Medications to be taken on the morning of surgery with a few sips of water: per IMPACT 3.) Please bring all your prescribed inhalers (if you have any you normally take) to the hospital. 4.) Arrival time: Call for arrival. 5.) Prep given: No 6.) Lovenox instructions given: N/A 7.) Patient reminded that surgery time provided day before surgery is tentative based on potential changes with transplants. Recommendations: Optimization pending: LABS and COVID. cleared by Dr Becerra - local machine applicator cementer. Awais Duncan APRN.TRAINING ADMINISTRATOR Electronically signed Normal [facility] CNOVon 12-15-2021 CNOV Office Visit (UROLMN ) PHILIPPE ARY ([id number]) 1960 M Date Time Provider Department 12/15/21 2:00 PM PHIL KAN During your visit today, we recorded the following information about you: Pulse Blood pressure Weight Height 73/minute 120/77 89.4 kg 1.829 m Phil Kan MD 12/16/2021 7:58 PM Signed [facility] NEW PATIENT HISTORY AND PHYSICAL EXAM PATIENT INFO: Philippe Ray REFERRING M.D.: [facility] [id number] [facility] [id number] PCP: No primary care provider on file. CHIEF COMPLAINT: Renal neoplasm HPI: Philippe Ray is a 61 year old male who presents with right renal mass. RCC Snapshot: Age at diagnosis: 61 Gender: male Date of radiographic diagnosis: 11/08/2021 Preop GFR: >60 Clinical: Cystic Mass: No Tumor size: (maximum tumor diameter in cm): (cm): 3cm Stage: [id number] RMB: No Presentation: incidental Laterality: Right Solitary kidney: No Horseshoe kidney: No Prev abd surgeries: No Anticoagulation: No Family History of RCC: No Familial syndrome: None Previously treated: No Smoking History: Never Comorbidities: HTN: Yes DM: No Morbid obesity: No History of stone disease: Yes LABS: No results found for: CREAT URINALYSIS: Specific [place], Ur Date Value Ref Range Status 12/15/2021 1.027 1.005 - 1.030 Final Glucose, Urine Date Value Ref Range Status 12/15/2021 Negative Negative mg/dL Final Bilirubin, Urine Date Value Ref Range Status 12/15/2021 Negative Negative Final Ketones, Urine Date Value Ref Range Status 12/15/2021 Negative Negative Final Hemoglobin/Blood,Ur Date Value Ref Range Status 12/15/2021 1+ (A) Negative Final Protein, Urine Date Value Ref Range Status 12/15/2021 Trace (A) Negative Final Nitrites Date Value Ref Range Status 12/15/2021 Negative Negative Final WBC, Urine Date Value Ref Range Status 12/15/2021 0-5 0 - 5 /HPF Final Proteinuria: No IMAGING: CT Abd/pelvis 10/04/2021 MRI Kidney 11/08/2021 ALLERGIES: ALLERGIES Not on File MEDICATIONS: Current Outpatient Medications Medication Sig - amLODIPine (NORVASC) 10 mg tablet Take 10 mg by mouth once daily. - hydroCHLOROthiazide (HYDRODIURIL, ESIDRIX) 12.5 mg tablet Take 12.5 mg by mouth once daily. - omeprazole (PRILOSEC) 20 mg capsule Take 20 mg by mouth once daily. No current facility-administered medications for this visit. HISTORIES No past medical history on file. No past surgical history on file. Social History Tobacco Use - Smoking status: Never Smoker - Smokeless tobacco: Never Used Substance Use Topics - Alcohol use: Yes Alcohol/week: 4.0 standard drinks Types: 4 Cans of Beer (12oz) per week - Drug use: Never No family history on file. REVIEW OF SYSTEMS: GENERAL: Negative for weight loss, fevers, chills, or night sweats. HEENT: Negative for sudden vision or hearing changes. RESPIRATORY: Negative for cough or shortness of breath. CARDIAC: Negative for chest pain, COPD, dyspnea, palpitations, murmurs, or syncopal episodes. GASTROINTESTINAL: Negative for trouble swallowing, heartburn, change in bowel habits, blood in stool, and dark black stools. GENITOURINARY: See HPI MUSCULAR: Negative for limitations in movement, pain, or swelling. NEUROLOGIC: Negative for dizziness, headache, weakness or numbness. HEMATOLOGIC: Negative for bleeding or easy bruising. SKIN: Negative for rashes or other skin changes. LYMPHATIC: No masses noted. EXTREMITIES: No swelling of extremities. PHYSICAL EXAM: Patient is a 61 year old male Constitutional: Vitals: Blood pressure 120/77, pulse 73, height 182.9 cm (6'), weight 89.4 kg (197 lb). General Appearance Adult: Alert, no acute distress, oriented Mouth: throat/mouth:normal as far as I can tell behind the mask Lungs/Repiratory: no respiratory distress, or pursed lip breathing Heart: No obvious jugular venous distension present, normal heart rate Abdomen: soft, nontender, no organomegaly or masses, Estimated body mass index is 26.72 kg/m? as calculated from the following: Height as of this encounter: 182.9 cm (6'). Weight as of this encounter: 89.4 kg (197 lb). Musculoskeltal: extremities normal, no peripheral edema Skin: no noted suspicious lesions or rashes Neuro: Alert, oriented, speech and mentation normal Psych: affect and mood normal Gait: Normal without assistance : No CVA tenderness IMPRESSION: This is a 61 year old male with right renal mass PLAN: We had an extensive discussion about the significance of a localized, enhancing kidney masses/lesions. Evaluation of the literature demonstrates that approximately 80% of enhancing renal masses collar turner to be kidney cancer upon removal, while 20% are found to be benign. Although certain features such as size, gender a (more content not included)... Normal [facility] Urinalysison 12-15-2021 Bilirubin, Urine Negative [facility] Comment on above: Performed By: #### 5 7021-8 #### [facility] CLIA [id number] [address] [place] [address] [place] Cast SEE COMMENT Critically abnormal 0 [facility] Comment on above: Result Comment: 1-3 Hyaline Cast Performed By: #### 5 7021-8 #### [facility] CLIA [id number] [address] [place] [address] [place] Clarity (U) Clear Normal Clear [facility] Comment on above: Performed By: #### 5 7021-8 #### [facility] CLIA [id number] [address] [place] [address] [place] Color (U) Light Yellow Critically abnormal Yellow [facility] Comment on above: Performed By: #### 5 7021-8 #### [facility] CLIA [id number] [address] [place] [address] [place] Comments SEE COMMENT Normal [facility] Comment on above: Result Comment: Micr oscopic Examination Performed Performed By: #### 5 7021-8 #### [facility] CLIA [id number] [address] [place] [address] [place] Epithelial cells LM Ql (Urine sed) SEE COMMENT Normal [facility] Comment on above: Result Comment: Few Squamous Epithelial Cells Performed By: #### 5 7021-8 #### [facility] CLIA [id number] [address] [address] [place] Glucose Ql (U) Negative Normal Negative [facility] Comment on above: Performed By: #### 5 7021-8 #### [facility] CLIA [id number] [address] [place] [address] [place] Hemoglobin/Blood,Ur 1+ Critically abnormal Negative [facility] Comment on above: Performed By: #### 5 7021-8 #### [facility] CLIA [id number] [address] [place] [address] [place] Ketones Ql (U) Negative Normal Negative [facility] Comment on above: Performed By: #### 5 7021-8 #### [facility] CLIA [id number] [address] [place] [address] [place] Leukest Negative Normal Negative [facility] Comment on above: Performed By: #### 5 7021-8 #### [facility] CLIA [id number] [address] [place] [id number] [place] Nitrite Ql (U) Negative Normal Negative [facility] Comment on above: Performed By: #### 5 7021-8 #### [facility] CLIA [id number] [address] [place] [id number] [place] pH (U) 5.5 [pH] Normal 5.0-8.0 [facility] Comment on above: Performed By: #### 5 7021-8 #### [facility] CLIA [id number] [address] [place] [id number] [place] Protein, Urine Trace Critically abnormal Negative [facility] Comment on above: Performed By: #### 5 7021-8 #### [facility] CLIA [id number] [address] [address] [place] RBC 3-5 Critically abnormal 0-3 [facility] Comment on above: Performed By: #### 5 7021-8 #### [facility] CLIA [id number] [address] [address] [place] Specific [place], Ur 1.027 Normal 1.005-1.030 [facility] Comment on above: Performed By: #### 5 7021-8 #### [facility] CLIA [id number] [address] [place] [address] [place] Urine Live Comment SEE COMMENT Normal [facility] Comment on above: Result Comment: N/A Performed By: #### 5 7021-8 #### [facility] CLIA [id number] [address] [address] [place] Urobilinogen (U) [Mass/Vol] Negative Normal Negative [facility] Comment on above: Performed By: #### 5 7021-8 #### [facility] CLIA [id number] [address] [address] [place] WBC 0-5 Normal 0-5 [facility] Comment on above: Performed By: #### 5 7021-8 #### [facility] CLIA [id number] [address] [address] [place] Vital Signs Date Time Vital Sign Value Performing Clinician Facility 12-25-2024 15:56-0500 Body height 182.9 cm Mare Hughes MD Work Phone: [facility] 12-25-2024 15:56-0500 Body mass index (BMI) [Ratio] 28.62 kg/m2 Mare Hughes MD Work Phone: [facility] 12-25-2024 15:56-0500 Body weight 95.71 kg Mare Hughes MD Work Phone: [facility] 12-25-2024 15:56-0500 Diastolic blood pressure 88 mm[Hg] Mare Hughes MD Work Phone: [facility] 12-25-2024 15:56-0500 Heart rate 76 /min Mare Hughes MD Work Phone: [facility] 12-25-2024 15:56-0500 Systolic blood pressure 124 mm[Hg] Mare Hughes MD Work Phone: [facility] 12-24-2024 15:00-0500 Body height 182.9 cm Ginny Ramirezos DO Work Phone: [facility] 12-24-2024 15:00-0500 Body mass index (BMI) [Ratio] 26.31 kg/m2 Ginny Pocos DO Work Phone: [facility] 12-24-2024 15:00-0500 Body weight 88 kg Ginny Pocos DO Work Phone: [facility] 12-22-2024 15:04-0500 Blood Pressure Location Rommel RIVERA [facility] 12-22-2024 15:04-0500 Body temperature 98.6 [degF] Rommel RIVERA [facility] 12-22-2024 15:04-0500 Diastolic blood pressure 89 mm[Hg] Rommel RIVERA [facility] 12-22-2024 15:04-0500 Heart rate 88 /min Rommel RIVERA [facility] 12-22-2024 15:04-0500 Respiratory rate 18 /min Rommel RIVERA [facility] 12-22-2024 15:04-0500 Systolic blood pressure 139 mm[Hg] Rommel RIVERA [facility] 12-03-2024 08:31-0500 Body height 182.9 cm Ginny Talbert DO Work Phone: [facility] 10-15-2024 08:34-0500 Body height 182.9 cm Mare Hughes MD Work Phone: [facility] 10-15-2024 08:34-0500 Body mass index (BMI) [Ratio] 33.91 kg/m2 Mare Hughes MD Work Phone: [facility] 10-15-2024 08:34-0500 Body weight 113.4 kg Mare Hughes MD Work Phone: [facility] 10-15-2024 08:34-0500 Diastolic blood pressure 82 mm[Hg] Mare Hughes MD Work Phone: [facility] 10-15-2024 08:34-0500 Heart rate 84 /min Mare Hughes MD Work Phone: [facility] 10-15-2024 08:34-0500 Systolic blood pressure 124 mm[Hg] Mare Hughes MD Work Phone: [facility] 08-19-2024 08:52-0400 Diastolic blood pressure 95 mm[Hg] Mare Hughes MD Work Phone: [facility] 08-19-2024 08:52-0400 Systolic blood pressure 125 mm[Hg] Mare Hughes MD Work Phone: [facility] 08-19-2024 08:35-0400 Body height 182.9 cm Mare Hughes MD Work Phone: [facility] 08-19-2024 08:35-0400 Body mass index (BMI) [Ratio] 28.07 kg/m2 Mare Hughes MD Work Phone: [facility] 08-19-2024 08:35-0400 Body weight 93.89 kg Mare Hughes MD Work Phone: [facility] 08-19-2024 08:35-0400 Heart rate 78 /min Mare Hughes MD Work Phone: [facility] 04-02-2024 09:01-0400 Body height 182.9 cm Mare Hughes MD Work Phone: [facility] 04-02-2024 09:01-0400 Body mass index (BMI) [Ratio] 26.18 kg/m2 Mare Hughes MD Work Phone: [facility] 04-02-2024 09:01-0400 Body weight 87.54 kg Mare Hughes MD Work Phone: [facility] 04-02-2024 09:01-0400 Diastolic blood pressure 84 mm[Hg] Mare Hughes MD Work Phone: [facility] 04-02-2024 09:01-0400 Heart rate 80 /min Mare Hughes MD Work Phone: [facility] 04-02-2024 09:01-0400 Systolic blood pressure 106 mm[Hg] Mare Hughes MD Work Phone: [facility] 12-14-2023 09:00-0500 Body height 182.9 cm Mare Hughes MD Work Phone: [facility] 12-14-2023 09:00-0500 Body mass index (BMI) [Ratio] 27.26 kg/m2 Mare Hughes MD Work Phone: [facility] 12-14-2023 09:00-0500 Body weight 91.17 kg Mare Hughes MD Work Phone: [facility] 12-14-2023 09:00-0500 Diastolic blood pressure 80 mm[Hg] Mare Hughes MD Work Phone: [facility] 12-14-2023 09:00-0500 Heart rate 79 /min Mare Hughes MD Work Phone: [facility] 12-14-2023 09:00-0500 Systolic blood pressure 122 mm[Hg] Mare Hughes MD Work Phone: [facility] 12-13-2023 07:45-0500 Body temperature 98.2 [degF] Sergo Nicole MD Work Phone: [facility] 12-13-2023 07:45-0500 Diastolic blood pressure 90 mm[Hg] Sergo Nicole MD Work Phone: [facility] 12-13-2023 07:45-0500 Heart rate 76 /min Sergo Nicole MD Work Phone: [facility] 12-13-2023 07:45-0500 Respiratory rate 19 /min Sergo Nicole MD Work Phone: [facility] 12-13-2023 07:45-0500 SaO2% (BldA) [Mass fraction] 95 % Sergo Nicole MD Work Phone: [facility] 12-13-2023 07:45-0500 Systolic blood pressure 155 mm[Hg] Sergo Nicole MD Work Phone: [facility] 12-13-2023 03:00-0500 Body mass index (BMI) [Ratio] 26.58 kg/m2 Sergo Nicole MD Work Phone: [facility] 12-13-2023 03:00-0500 Body weight 88.9 kg Sergo Nicole MD Work Phone: [facility] 12-12-2023 12:00-0500 Body height 182.9 cm Sergo Nicole MD Work Phone: [facility] 11-23-2023 10:42-0500 Blood Pressure Location Rommel RIVERA [facility] 11-23-2023 10:42-0500 Diastolic blood pressure 82 mm[Hg] Rommel RIVERA [facility] 11-23-2023 10:42-0500 Heart rate 65 /min Rommel RIVERA [facility] 11-23-2023 10:42-0500 Respiratory rate 16 /min Rommel RIVERA [facility] 11-23-2023 10:42-0500 Systolic blood pressure 138 mm[Hg] Rommel RIVERA [facility] 08-15-2023 14:12-0400 Body height 182.88 cm Clark Rodriguez Viktoriya Work Phone: [facility] [employer] 600 DO Work Phone: 08-15-2023 14:12-0400 Body mass index (BMI) [Ratio] 26.99 kg/m2 Clark Michael Viktoriya Work Phone: [facility] [employer] 600 DO Work Phone: 08-15-2023 14:12-0400 Body surface area Derived from formula 2.13 m2 Clark Michael LawsonViktoriya Work Phone: [facility] [employer] 600 DO Work Phone: 08-15-2023 14:12-0400 Body weight 90.27 kg Clark Michael LawsonViktoriya Work Phone: [facility] [employer] 600 DO Work Phone: 08-15-2023 14:12-0400 Diastolic blood pressure 64 mm[Hg] Clark Lawsonker Work Phone: [facility] 600 DO Work Phone: 08-15-2023 14:12-0400 Heart rate 93 /min Clark C Viktoriya Work Phone: [facility] 600 DO Work Phone: 08-15-2023 14:12-0400 Systolic blood pressure 110 mm[Hg] Clark C Viktoriya Work Phone: [facility] 600 DO Work Phone: 08-09-2023 15:03-0400 Body height 182.88 cm MD Mare Hughes Work Phone: [facility] 08-09-2023 15:03-0400 Body weight 90.5 kg MD Mare Hughes Work Phone: [facility] 08-01-2023 10:50-0400 Body height 182.88 cm Clark C Viktoriya Work Phone: [facility] 250 DO Work Phone: 08-01-2023 10:50-0400 Body mass index (BMI) [Ratio] 26.99 kg/m2 Clark C Viktoriya Work Phone: [facility] 250 DO Work Phone: 08-01-2023 10:50-0400 Body surface area Derived from formula 2.13 m2 Clark C Viktoriya Work Phone: [facility] 250 DO Work Phone: 08-01-2023 10:50-0400 Body weight 90.27 kg Clark C Viktoriya Work Phone: [facility] 250 DO Work Phone: 08-01-2023 10:50-0400 Diastolic blood pressure 70 mm[Hg] Clark C Viktoriya Work Phone: [facility] 250 DO Work Phone: 08-01-2023 10:50-0400 Heart rate 86 /min Clark C Viktoriya Work Phone: [facility] 250 DO Work Phone: 08-01-2023 10:50-0400 Systolic blood pressure 122 mm[Hg] Clark C Viktoriya Work Phone: [facility] 250 DO Work Phone: 07-17-2023 15:59-0400 Body height 182.88 cm Clark C Viktoriya Work Phone: [facility] 250 DO Work Phone: 07-17-2023 15:59-0400 Body mass index (BMI) [Ratio] 27.13 kg/m2 Clark C Viktoriya Work Phone: [facility] 250 DO Work Phone: 07-17-2023 15:59-0400 Body surface area Derived from formula 2.13 m2 Clark C Viktoriya Work Phone: [facility] 250 DO Work Phone: 07-17-2023 15:59-0400 Body weight 90.72 kg Clark C Viktoriya Work Phone: [facility] 250 DO Work Phone: 07-17-2023 15:59-0400 Diastolic blood pressure 78 mm[Hg] Clark C Viktoriya Work Phone: [facility] 250 DO Work Phone: 07-17-2023 15:59-0400 Heart rate 87 /min Clark C Viktoriya Work Phone: [facility] 250 DO Work Phone: 07-17-2023 15:59-0400 Systolic blood pressure 128 mm[Hg] Clark Sadler Work Phone: [facility] 250 DO Work Phone: 12-13-2022 09:22-0500 Body height 182.88 cm Ramon C Link Work Phone: [facility] 600 DO Work Phone: 12-13-2022 09:22-0500 Body mass index (BMI) [Ratio] 27.13 kg/m2 Ramon C Link Work Phone: [facility] 600 DO Work Phone: 12-13-2022 09:22-0500 Body surface area Derived from formula 2.13 m2 Ramon C Link Work Phone: [facility] 600 DO Work Phone: 12-13-2022 09:22-0500 Body weight 90.72 kg Ramon C Link Work Phone: [facility] 600 DO Work Phone: 12-13-2022 09:22-0500 Diastolic blood pressure 70 mm[Hg] Ramon C Link Work Phone: [facility] 600 DO Work Phone: 12-13-2022 09:22-0500 Heart rate 92 /min Ramon C Link Work Phone: [facility] 600 DO Work Phone: 12-13-2022 09:22-0500 Systolic blood pressure 118 mm[Hg] Ramon C Link Work Phone: [facility] 600 DO Work Phone: 10-16-2022 15:18-0500 Blood Pressure Location Rommel RVIERA [facility] 10-16-2022 15:18-0500 Diastolic blood pressure 74 mm[Hg] Rommel RIVERA [facility] 10-16-2022 15:18-0500 Heart rate 68 /min Rommel RIVERA [facility] 10-16-2022 15:18-0500 Respiratory rate 16 /min Rommel RIVERA [facility] 10-16-2022 15:18-0500 Systolic blood pressure 128 mm[Hg] Rommel RIVERA [facility] 08-09-2022 15:33-0400 Diastolic blood pressure 79 mm[Hg] Jovani Edwards [facility] 08-09-2022 15:33-0400 Heart rate 80 /min Jovani Edwards [facility] 08-09-2022 15:33-0400 Mean blood pressure 98 mm[Hg] Jovani Edwards [facility] 08-09-2022 15:33-0400 Respiratory rate 18 /min Jovani Edwards [facility] 08-09-2022 15:33-0400 SaO2% (BldA) [Mass fraction] 97 % Jovani Edwards [facility] 08-09-2022 15:33-0400 Systolic blood pressure 136 mm[Hg] Jovani Edwards [facility] 08-09-2022 14:30-0400 Diastolic blood pressure 81 mm[Hg] Jovani Edwards [facility] 08-09-2022 14:30-0400 Heart rate 77 /min Jovani Edwards [facility] 08-09-2022 14:30-0400 Mean blood pressure 98 mm[Hg] Jovani Edwards [facility] 08-09-2022 14:30-0400 SaO2% (BldA) [Mass fraction] 95 % Jovani Jerry [facility] 08-09-2022 14:30-0400 Systolic blood pressure 131 mm[Hg] Jovani Jerry [facility] 08-09-2022 13:28-0400 Body temperature 98.42 [degF] Jovani Edwards [facility] 08-09-2022 13:28-0400 Diastolic blood pressure 84 mm[Hg] Jovani Edwards [facility] 08-09-2022 13:28-0400 Heart rate 89 /min Jovani Edwards [facility] 08-09-2022 13:28-0400 Respiratory rate 18 /min Jovani Edwards [facility] 08-09-2022 13:28-0400 SaO2% (BldA) [Mass fraction] 96 % Jovani Edwards [facility] 08-09-2022 13:28-0400 Systolic blood pressure 150 mm[Hg] Jovani Edwards [facility] 01-19-2022 16:13-0500 55 1 Ramon C Link Work Phone: [facility] [facility] 250 DO Work Phone: Comment on above: [id number] 01-19-2022 14:02-0500 54 1 Ramon C Link Work Phone: [facility] 250 DO Work Phone: Comment on above: [id number] 01-11-2022 09:45-0500 Diastolic blood pressure 80 mm[Hg] Ramon C Link Work Phone: [facility] 600 DO Work Phone: 01-11-2022 09:45-0500 Systolic blood pressure 130 mm[Hg] Ramon C Link Work Phone: [facility] 600 DO Work Phone: 01-11-2022 09:21-0500 Diastolic blood pressure 90 mm[Hg] Ramon C Link Work Phone: [facility] 600 DO Work Phone: 01-11-2022 09:21-0500 Systolic blood pressure 130 mm[Hg] Ramon C Link Work Phone: [facility] 600 DO Work Phone: 01-11-2022 09:16-0500 Body height 182.88 cm Ramon C Link Work Phone: [facility] 600 DO Work Phone: 01-11-2022 09:16-0500 Body mass index (BMI) [Ratio] 27.88 kg/m2 Ramon C Link Work Phone: [facility] 600 DO Work Phone: 01-11-2022 09:16-0500 Body surface area Derived from formula 2.16 m2 Ramon C Link Work Phone: [facility] 600 DO Work Phone: 01-11-2022 09:16-0500 Body weight 93.26 kg Ramon C Link Work Phone: [facility] 600 DO Work Phone: 01-11-2022 09:16-0500 Diastolic blood pressure 96 mm[Hg] Ramon C Link Work Phone: [facility] 600 DO Work Phone: 01-11-2022 09:16-0500 Heart rate 87 /min Ramon Rodriguez Link Work Phone: [facility] 600 DO Work Phone: 01-11-2022 09:16-0500 Systolic blood pressure 146 mm[Hg] Ramon Rodriguez Link [facility] DO Work Phone: Encounters Encounter Date Encounter Type Care Provider Facility Start: 12-25-2025 ambulatory Rommel Izaguirre ty:[facility] [place] Start: 01-01-2025 ambulatory Rommel Izaguirre ty:[id number] Start: 12-25-2024 End: 12-25-2024 Office outpatient visit 15 minutes Mare Hughes MD Work Phone: [facility] Comment on above: Preop cardiovascular exam (Primary Dx); Paroxysmal atrial fibrillation (Multi); Essential hypertension Start: 12-25-2024 End: 12-25-2024 [facility] Start: 12-25-2024 End: 12-25-2024 Encounter for [facility]cedural [facility] Start: 12-25-2024 Encounter for [facility]procedural [facility] Start: 12-25-2024 End: 12-25-2024 Patient encounter status Mare Hughes MD Work Phone: [facility] Work Phone: Start: 12-24-2024 End: 12-24-2024 Patient encounter procedure Gerald Pocos DO Work Phone: [facility] Comment on above: Arm pain, left (Prim umesh Dx); Carpal tunnel syndrome, bilateral; Congenital abnormality of fusion of radius Start: 12-24-2024 End: 12-24-2024 ambulatory GERALD POCOS Not Available Start: 12-24-2024 End: 12-24-2024 ambulatory GERALD POCOS Not Available Start: 12-22-2024 End: 12-22-2024 ambulatory Rommel RIVERA Facility:[facility] [place] Start: 12-22-2024 End: 12-22-2024 Patient encounter procedure Rommel RIVERA [facility] Start: 12-16-2024 End: 12-16-2024 ambulatory Santiago RICHARDS Facility:[facility] Start: 12-15-2024 End: 12-15-2024 Patient encounter procedure Prema Sun DO Work Phone: [facility] Comment on above: Bilateral carpal jenni justin syndrome (Primary Dx); Arm weakness; Numbness; Arm pain, right; Arm pain, left Start: 12-15-2024 End: 12-15-2024 ambulatory PREMA DINO Not Available Start: 12-15-2024 End: 12-15-2024 Bamboo flowsheet Prema Dino DO Work Phone: [facility] Start: 12-15-2024 End: 12-15-2024 Bamboo flowsheet Prema Dino DO Work Phone: [facility] Start: 12-03-2024 End: 12-03-2024 Patient encounter procedure Ginny Talbert DO Work Phone: [facility] Comment on above: Bilateral wrist pain (Primary Dx); Carpal tunnel syndrome, bilateral; Congenital deformity of bone of forearm Start: 12-03-2024 End: 12-03-2024 ambulatory GINNY TALBERT Not Available Start: 12-02-2024 End: 12-02-2024 ambulatory Rommel RIVERA Facility:[place] Start: 12-02-2024 End: 12-02-2024 Patient encounter procedure Rommel RIVERA [facility] Start: 10-29-2024 End: 11-21-2024 Pre-admission assessment Rommel RIVERA [facility] Start: 10-15-2024 End: 10-15-2024 ambulatory Mare Hughes Facility:[place] Start: 10-15-2024 End: 10-15-2024 Patient encounter procedure Mare Hughes [facility] Start: 10-15-2024 End: 10-15-2024 Office outpatient visit 10 minutes Mare Hughes MD Work Phone: [facility] Comment on above: Benign essential hyp ertension; Never smoked tobacco; BMI 33.0-33.9,adult Start: 10-15-2024 End: 10-15-2024 [facility] Start: 08-19-2024 End: 08-19-2024 Office outpatient visit 25 minutes Mare Hughes MD Work Phone: [facility] Comment on above: Benign essential hyp ertension; Paroxysmal atrial fibrillation (Multi); RBBB (right bundle branch block); Never smoked tobacco; BMI 28.0-28.9,adult Start: 08-19-2024 End: 08-19-2024 [facility] Start: 06-24-2024 End: 06-24-2024 [facility] Start: 04-07-2024 End: 04-07-2024 ambulatory SARAHY MOORE Facility:[place] Start: 04-07-2024 End: 04-07-2024 Patient encounter procedure SARAHY MOORE [facility] Start: 04-02-2024 End: 04-02-2024 Office outpatient visit 25 minutes Mare Hughes MD Work Phone: [facility] Comment on above: Paroxysmal atrial fi brillation (Multi) (Primary Dx); Benign essential hypertension; Right bundle branch block (RBBB) determined by electrocardiography; Overweight with body mass index (BMI) of 26 to 26.9 in adult; Never smoked tobacco; High risk medication use Start: 04-02-2024 End: 04-02-2024 [facility] Start: 01-16-2024 End: 01-16-2024 ambulatory SARAHY MOORE Facility:[place] Start: 01-16-2024 End: 01-16-2024 Patient encounter procedure SARAHY Matias OSCAR [facility] Start: 12-14-2023 End: 12-14-2023 Office outpatient visit 25 minutes Mare Hughes MD Work Phone: [facility] Comment on above: Paroxysmal atrial fi brillation (CMS/HCC) (Primary Dx); Benign essential hypertension; RBBB (right bundle branch block); High risk medication use; Overweight Start: 12-12-2023 End: 12-13-2023 ambulatory SERGO NICOLE [facility] Start: 12-12-2023 End: 12-13-2023 Evaluation and management of inpatient Sergo Nicole MD Work Phone: [facility] Comment on above: Persistent atrial fi brillation (CMS/HCC) (Primary Dx) Start: 12-05-2023 End: 12-05-2023 Patient encounter procedure Rommel RIVERA [facility] Start: 12-04-2023 End: 12-04-2023 Patient encounter procedure SERGO NICLOE [facility] Start: 11-23-2023 End: 11-23-2023 Patient encounter procedure Rommel RIVERA [facility] [place] Start: 10-26-2023 End: 10-26-2023 Patient encounter procedure Rommel RIVERA [facility] Start: 10-03-2023 End: 10-04-2023 ambulatory Mare Hughes Facility:[facility] Start: 10-03-2023 End: 10-03-2023 Admission to same day surgery center MD Mare Hughes Work Phone: [facility] Work Phone: Start: 10-03-2023 End: 10-03-2023 ambulatory MD Mare Hughes Work Phone: [facility] Work Phone: Start: 09-10-2023 End: 09-10-2023 ambulatory [facility] Start: 08-15-2023 Patient encounter procedure Clark Michael Sadler Work Phone: [facility] 600 DO Work Phone: Start: 08-15-[address] Mare Hughes Facility: Start: 08-10-[address] Mare Hughes Facility:[id number] Start: 08-10-2023 Chart Update Clark Sadler Work Phone: [facility] 250 DO Work Phone: Start: 08-10-2023 End: 08-11-2023 ambulatory Clark Sadler Facility:[facility] Start: 08-10-2023 End: 08-10-2023 Admission to same day surgery center MD Mare Hughes Work Phone: [facility]Electrodiagnosti cs Work Phone: Start: 08-10-2023 End: 08-10-2023 ambulatory MD Mare Hughes Work Phone: [facility] Work Phone: Start: 08-01-2023 Office outpatient vi sit 25 minutes Clark Sadler Work Phone: [facility] 250 DO Work Phone: Start: 08-01-[address] Mare Hughes Facility: Start: 07-17-2023 Patient encounter procedure Clark Sadler Work Phone: [facility] 250 DO Work Phone: Start: 07-17-[address] Mare Hughes Facility: Start: 07-12-2023 Telephone encounter Ramon albright Work Phone: [facility] 250 DO Work Phone: Start: 12-23-2022 Chart Update Ramon Rodriguez Link Work Phone: [facility] 250 DO Work Phone: Start: 12-13-2022 Office outpatient vi sit 25 minutes Ramon Rodriguez Link Work Phone: [facility] 600 DO Work Phone: Start: 10-16-2022 End: 10-16-2022 Patient encounter procedure Rommel RIVERA [facility] Start: 10-14-2022 End: 10-14-2022 Patient encounter procedure Rommel RIVERA [facility] Start: 08-09-2022 End: 08-09-2022 Emergency department patient visit Jovani Edwards [facility] Start: 02-09-2022 End: 02-09-2022 Patient encounter procedure Phil Kan MD Work Phone: Urology Comment on above: Malignant neoplasm o f right kidney (HCC) (Primary Dx) Start: 01-20-2022 Chart Update Ramon Rodriguez Link Work Phone: [facility] 250 DO Work Phone: Start: 01-19-2022 Chart Update Ramon Rodriguez Link [facility] DO Work Phone: Start: 01-12-2022 End: 01-12-[address] ROMMEL RIVERA Facility:[facility] Start: 01-11-2022 Office consultation new/estab patient 60 min Ramon Alves Work Phone: [facility] 600 DO Work Phone: Start: 01-09-[address] ROMMEL RIVERA [facility] ity:[facility]1 Start: 01-06-2022 Encounter for preprocedural cardiovascular examination DR ROMMEL RIVERA [facility] Start: 01-06-2022 Encounter for preprocedural laboratory examination DR ROMMEL RIVERA [facility] Start: 01-05-2022 End: 01-06-[address] ROMMEL RIVERA Facility:[facility] Start: 01-05-2022 End: 01-06-2022 Encounter for preprocedural cardiovascular examination DR ROMMEL RIVERA Facility:[facility] Patient encounter status Ramon Rodriguez Link Work Phone: [facility] 600 DO Work Phone: End: 12-13-2022 Patient encounter status Ramon Rodriguez Link Work Phone: [facility] 600 DO Work Phone: Procedures Date Procedure Procedure Detail Performing Clinician Start: 12-25-2024 Ecg routine ecg w/le ast 12 lds w/i&r Mare Hughes MD Work Phone: Start: 12-24-2024 Radex elbow 2 views Grayson id A Pocos DO Work Phone: Start: 12-15-2024 End: 12-15-2024 Needle emg ea extremty w/paraspinl area complete Prema Dino DO Work Phone: Start: 12-03-2024 End: 12-03-2024 Radex wrist complete minimum 3 views Gerald Pocos DO Work Phone: Start: 08-19-2024 Ecg routine ecg w/le ast 12 lds w/i&r Mare Hughes MD Work Phone: Start: 04-02-2024 ECG 12-LEAD MARE THOMASON Start: 04-02-2024 FOLLOW UP IN CARDIOLOGY MARE HUGHES Start: 04-02-2024 Ecg routine ecg w/le ast 12 lds w/i&r Mare Hughes MD Work Phone: Start: 12-14-2023 Ecg routine ecg w/le ast 12 lds w/i&r Mare Hughes MD Work Phone: Start: 12-13-2023 DISCHARGE PATIENT DARRIAN NICOLE Start: 12-13-2023 ECG 12-LEAD SERGO BOND Start: 12-13-2023 ECG 12-LEAD SERGO BOND Start: 12-13-2023 Ecg routine ecg w/le ast 12 lds trcg only w/o i&r Nemesio Frazier MD Work Phone: Start: 12-12-2023 FULL CODE SERGO BOND Start: 12-12-2023 HEIGHT AND WEIGHT DARRIAN NICOLE Start: 12-12-2023 TELEMETRY MONITORING EDIL NICOLE Start: 12-12-2023 Ecg routine ecg w/le ast 12 lds trcg only w/o i&r Nemesio Frazier MD Work Phone: Start: 12-12-2023 Glucose [Mass/volume ] in Serum or Plasma SERGO GUTIÉRREZUDA Start: 12-12-2023 ADMIT TO INPATIENT JENNIFER MONROY [facility] Start: 12-12-2023 Glucose quantitative blood xcpt reagent strip Sergo Nicole MD Work Phone: Start: 12-12-2023 ELECTROPHYSIOLOGY PROCEDURE SERGO NICOLE Start: 12-12-2023 ACTIVATED CLOTTING TIME HIGH SERGO NICOLE Start: 12-12-2023 Electrophysiology study Sergo Nicole MD Work Phone: Start: 12-12-2023 ACTIVATED CLOTTING TIME HIGH SERGO NICOLE Start: 09-10-2023 AMB REFERRAL TO CARD [facility] ELECTROPHYSIOLOGY SERGO NICOLE Start: 01-23-2022 Antibody screen Comment on above: Order Comment: Speci men Type: BLOOD SPECIMEN Ordering Facility: [facility] Address: [address] [place] [address] Performed By: #### 5 [id number] #### [facility] CLIA [id number] [address] [place] [address] [address] [place] Start: 01-12-2022 Extracorporeal shock wave lithotripsy of calculus of kidney Rommel RIVERA Start: 11-29-2021 Cystoscopy Rommel RHYS STRATTON Start: 11-19-2021 Robot assisted lapar oscopic partial nephrectomy Rommel NICOLE Start: 10-16-2017 Total hip resurfacin g arthroplasty Jovani Edwards Comment on above: RIGHT TOTAL ARTHROPL ASTY DIRECT ANTERIOR APPROACH Start: 11-14-2016 L MERCEDES DAA Jovani elizondo Arthroscopy of knee Jovani Galvez Comment on above: LEFT Excision of lumbar intervertebral disc Ramon C Link Work Phone: Functional endoscopi c sinus surgery (qualifier value) Jovani Edwards Lumbar laminectomy a nd excision of intradural spinal lesion Jovani Edwards Operative procedure on knee Ramon C Link Work Phone: Procedure on back Ramon Rodriguez Cintia k Work Phone: Prosthetic arthropla sty of the hip Ramon C Link Work Phone: Tonsillectomy Ramon C Link Work Phone: Tonsillectomy Jovani Edwards Total colonoscopy Ramon C Cintia k Work Phone: Total replacement of hip Ada m C Link Work Phone: Vasectomy Ramon C Link Work Phone: Vasectomy Jovani Edwards Plan of Treatment Date Care Activity Detail Author Start: 02-07-2026 DTaP/Tdap/Td Vaccines (2 - Td or Tdap) DTaP/Tdap/Td Vaccines (2 - Td or Tdap) [facility] Start: 2025 Pneumococcal Vaccine: 65+ Years (1 of 1 - PCV) Pneumococcal Vaccine: 65+ Years (1 of 1 - PCV) [facility] Start: 04-03-2025 End: 04-03-2025 Patient encounter procedure 04/03/2025 9:20 AM EDT Office Visit [facility] [address] [place] [phone] Mare Hughes MD [address] [facility] [address] [place] [address] [facility] Start: 03-23-2025 End: 03-23-2025 Patient encounter procedure 03/23/2025 3:00 PM EDT Office Visit [facility] [address] [place] [phone] Ginny Talbert DO [address] [place], [place] [id number] [facility] Start: 01-27-2025 DIABETES SCREEN DIABETES SCREEN [facility] Start: 12-24-2024 End: 12-24-2024 Patient encounter procedure 12/24/2024 2:45 PM EST Office Visit [facility] [address] [place] [phone] Ginny Talbert DO [address] [place] [address] [facility] Start: 12-15-2024 End: 12-15-2024 Patient encounter procedure 12/15/2024 2:30 PM EST Procedure Visit [facility] [address] [facility] [address] [place] [address] Prema Sun, DO [address] [place] [address] Arrived [facility] Comment on above: Arrived Start: 12-12-2024 Diabetes mellitus screening Diabetes Screening [facility] Start: 10-15-2024 End: 10-15-2024 Patient encounter procedure 10/15/2024 8:30 AM EST Office Visit [place] [address] [place] [phone] Mare Hughes MD [address] [facility] [address] [place] [address] [facility] Start: 08-19-2024 End: 08-19-2025 Basic metabolic 2000 panel - Serum or Plasma Basic Metabolic Panel Lab Routine Benign essential hypertension Expected: 08/19/2024 (Approximate), Expires: 08/19/2025 [facility] Service Area Work Phone: Comment on above: Expected: 08/19/2024 (Approximate), Expi res: 08/19/2025 Start: 08-19-2024 End: 08-19-2024 Patient encounter procedure 08/19/2024 8:40 AM EDT Office Visit [place] [address] [place] [address] Maer Hughes MD [address] [facility] [address] [place] [address] [facility] Start: 07-20-2024 COVID-19 Vaccine ( season) COVID-19 Vaccine ( season) [facility] Start: 07-20-2024 COVID-19 Vaccine ( season) COVID-19 Vaccine ( season) [facility] Start: 04-02-2024 End: 04-02-2024 Patient encounter procedure 04/02/2024 9:10 AM EDT Office Visit [place] [address] [place] [address] Mare Hughes MD [address] [facility] [address] [place], [place] [phone] [facility] Start: 01-15-2024 End: 01-15-2024 Patient encounter procedure 01/15/2024 3:30 PM EST [facility] [address] [place] [address] [place] [address] Janet Garrido, MANPOWER DEVELOPMENT SPECIALIST MANAGER-TRAINING ADMINISTRATOR [address] [place] [address] [facility] Start: 12-14-2023 FUV, Provider: Mare Hughes, Status: Pen, Time: 9:00 AM FUV, Provider: Mare Hughes, Status: Pen, Time: 9:00 AM [facility] 600 DO Work Phone: Start: 12-14-2023 End: 12-14-2023 Patient encounter procedure 12/14/2023 9:00 AM EST Office Visit [place] [address] [place] [phone] Mare Hughes MD [address] [facility] [address] [place] [address] [facility] Start: 08-15-2023 EKG, Provider: DIANE BAH BOX TOE CEMENTER 1,[id number], Status: Pen, Time: 2:00 PM EKG, Provider: DIANE BAH BOX TOE CEMENTER 1,[id number], Status: Pen, Time: 2:00 PM [facility] 250 DO Work Phone: Start: 08-10-2023 SURGNONUH, Provider: Mare Hughes, Status: Pen, Time: 9:00 AM SURGNONUH, Provider: Mare Hughes, Status: Pen, Time: 9:00 AM [facility] 250 DO Work Phone: Start: 08-10-2023 [facility] Start: 07-17-2023 EKG, Provider: DIANE BAH BOX TOE CEMENTER 1,[id number], Status: Pen, Time: 2:30 PM EKG, Provider: DIANE BAH BOX TOE CEMENTER 1,[id number], Status: Pen, Time: 2:30 PM -[facility] 250 DO Work Phone: Start: 12-13-2022 FUV, Provider: Mare Hughes, Status: Pen, Time: 9:20 AM FUV, Provider: Mare Hughes, Status: Pen, Time: 9:20 AM -[facility] 600 DO Work Phone: Start: 04-07-2022 FUV, Provider: Mare Hughes, Status: Pen, Time: 10:20 AM FUV, Provider: Mare Hughes, Status: Pen, Time: 10:20 AM -[facility] 600 DO Work Phone: Start: 01-23-2022 SURGNONUH, Provider: Mare Hughes, Status: Pen, Time: 9:00 AM SUR[facility]ONUH, Provider: Mare Hughes, Status: Pen, Time: 9:00 AM -[facility] 600 DO Work Phone: Start: 01-19-2022 SURGNONUH, Provider: Buzz Garcia, Status: Pen, Time: 2:00 PM SURGNONUH, Provider: Buzz Garcia, Status: Pen, Time: 2:00 PM -[facility] 101 DO Work Phone: Start: 2020 RSV High Risk: (Elderly (60+) or Population) (1 - Risk 60-74 years 1-dose series) RSV High Risk: (Elderly (60+) or Population) (1 - Risk 60-74 years 1-dose series) [facility] Start: 2020 RSV patients and/or patients aged 60+ years (1 - 1-dose 60+ series) RSV patients and/or patients aged 60+ years (1 - 1-dose 60+ series) [facility] Start: 2015 PROSTATE CANCER SCREENING DISCUSSION PROSTATE CANCER SCREENING DISCUSSION [facility] Start: 2010 Pneumococcal vaccination Pneumococcal Vaccine (1 of 1 - PCV) [facility] Start: 2010 SHINGRIX VACCINE (1 of 2) SHINGRIX VACCINE (1 of 2) [facility] Start: 2005 COLOGUARD (FIT-DNA) COLOGUARD (FIT-DNA) [facility] Start: 2005 Colonoscopy COLONOSCOPY [facility] Start: 2005 COLORECTAL CANCER SCREENING COLORECTAL CANCER SCREENING [facility] Start: [address] COLONOGRAPHY [facility] Start: 2005 FECAL OCCULT BLOOD FECAL OCCULT BLOOD [facility] Start: 2005 SIGMOIDOSCOPY SIGMOIDOSCOPY [facility] Start: 1995 LIPID SCREEN LIPID SCREEN [facility] Start: 1979 Urine microalbumin profile DTAP,TDAP,TD (1 - Tdap) [facility] Start: 1978 ANNUAL PCP TEAM CHRONIC DISEASE VISIT ANNUAL PCP TEAM CHRONIC DISEASE VISIT [facility] Start: 1978 BP CONTROLLED (<130/80) BP CONTROLLED (<130/80) [facility] Start: 1978 HEPATITIS C SCREENING HEPATITIS C SCREENING [facility] Start: 1978 Hepatitis C screening Hepatitis C Screening [facility] Start: 1978 HIV SCREENING HIV SCREENING [facility] Start: 1972 Adult depression screening assessment DEPRESSION SCREENING [facility] Start: 1961 MMR Vaccines (1 of 1 - Standard series) MMR Vaccines (1 of 1 - Standard series) [facility] Start: 1960 HIV screening HIV Screening [facility] Start: 1960 Lipid panel Lipid Panel [facility] Start: 1960 Screening for malignant neoplasm of colon [facility] Start: 1960 Thyroid stimulating hormone measurement TSH Level [facility] Start: 1960 Yearly Adult Physical Yearly Adult Physical [facility] Electrocardiogram, 1 2-lead PRN ACS symptoms [facility] Service [facility] Work Phone: Comment on above: As needed until discontinued starting Electrophysiology study Electrop hysiology procedure Electrophysiology Routine Persistent atrial fibrillation (CMS/HCC) 12/12/2023 4:41 PM EST [facility] Area Work Phone: Patient referral [facility] Work Phone: XR Elbow - left 2 Views XR elbow 1 or 2 views left Imaging Routine Arm pain, left 12/24/2024 11:35 AM EST [facility] Work Phone: XR Wrist - left 3 Views XR wrist 3+ views left Imaging Routine Bilateral wrist pain 12/03/2024 7:52 AM EST [facility] XR Wrist - right 3 Views XR wris t 3+ views right Imaging Routine Bilateral wrist pain 12/03/2024 7:52 AM EST [facility] Work Phone: Immunizations Immunization Date Immunization Notes [facility] influenza virus vaccine, unspecified formulation Rommel RIVERA [facility] 08-10-2024 influenza, injectabl e, madin dexter canine kidney, preservative free Mare Hughes MD Work Phone: [facility] 09-11-2023 influenza virus vaccine, unspecified formulation Rommel RIVERA [facility] 09-11-2023 influenza, injectabl e, quadrivalent, preservative free Mare Hughes MD Work Phone: [facility] Work Phone: 10-26-2022 zoster vaccine recombinant Ramon C Link Work Phone: [facility] 10-05-2022 Pfizer COVID-19 Vac Bivalent 30 MCG/0.3ML Intramuscular Suspension Ramon C Link Work Phone: [facility] 09-01-2022 influenza virus vaccine, unspecified formulation Rommel RIVERA [facility] 09-01-2022 influenza, injectabl e, quadrivalent, preservative free Ramon C Link Work Phone: [facility] 600 DO Work Phone: 2022 zoster vaccine recombinant Ramon C Link Work Phone: [facility] [facility] 06-30-2022 Comirnaty 30 MCG/0.3 ML Intramuscular Suspension Ramon C Link Work Phone: [facility] 600 DO Work Phone: 06-30-2022 SARS-CoV-2 mRNA (btyybhrmtxi-lgxf-kjwdq se) vaccine Rommel RIVERA [facility] 10-07-2021 Pfizer-BioNTech COVID-19 Vacc 30 MCG/0.3ML Intramuscular Suspension Ramon C Link Work Phone: [facility] Comment on above: Reason for Medicatio n: Prophylaxis 08-06-2021 influenza virus vaccine, unspecified formulation Rommel RIVERA [facility] 08-06-2021 influenza, injectabl e, quadrivalent, preservative free Ramon C Link Work Phone: [facility] 600 DO Work Phone: 01-20-2021 Pfizer-BioNTech COVID-19 Vacc 30 MCG/0.3ML Intramuscular Suspension Ramon C Link Work Phone: [facility] 600 DO Work Phone: 01-20-2021 SARS-CoV-2 (COVID-19 ) Ad26 vaccine, recombinant Jovani Edwards [facility] 12-30-2020 Pfizer-BioNTech COVID-19 Vacc 30 MCG/0.3ML Intramuscular Suspension Ramon C Link Work Phone: [place] [address] DO Work Phone: 12-30-2020 SARS-CoV-2 (COVID-19 ) Ad26 vaccine, recombinant Jovani Edwards [facility] 09-02-2019 influenza virus vaccine, unspecified formulation Rommelmari RIVERA [facility] 09-02-2019 Influenza, injectabl e, Madin [place] Canine Kidney, preservative free, quadrivalent Ramon C Link Work Phone: [place] [address] DO Work Phone: 08-23-2018 influenza virus vaccine, unspecified formulation Rommel RIVERA [facility] 08-23-2018 Influenza, injectabl e, Madin [place] Canine Kidney, preservative free, quadrivalent Sergo Nicole MD Work Phone: [facility] Work Phone: 08-19-2018 influenza virus vaccine, unspecified formulation Rommelmari RIVERA [facility] 08-19-2018 influenza, injectabl e, quadrivalent, preservative free Ramon C Link Work Phone: [facility] 600 DO Work Phone: 09-20-2017 influenza virus vaccine, unspecified formulation Rommel RIVERA [facility] 09-20-2017 influenza, injectabl e, quadrivalent, preservative free Ramon C Link Work Phone: [facility] 600 DO Work Phone: 02-08-2016 tetanus toxoid, redu maria guadalupe diphtheria toxoid, and acellular pertussis vaccine, adsorbed Ramon Rodriguez Link Work Phone: [facility] 09-19-2015 influenza virus vaccine, unspecified formulation Rommel RIVERA [facility] 09-19-2015 influenza, seasonal, injectable, preservative free Ramon Rodriguez Link Work Phone: [facility] 600 DO Work Phone: Payers Date Payer Category Payer Self-pay [id number] 2023 Unknown 2017 Managed Care (Private) [id number] 2017 Private Health Insurance [facility] CHOICE PLUS [id number] 2017-Present [phone] [address] [address] [place] [address] O [id number] 2017 Private Health Insurance [id number] 2014 Unknown MMO MMO SUPERMED PLUS [id number] 2014-Present [phone] [address] [place] [address] PPO [id number]. [id number] 1960 Unknown [id number] 2.16.840.1.434159.3.579.2. 593 1960 Unknown [id number] 2.16.840.1.380641.3.579.2. 593 1960 Unknown [id number] 2.16.840.1.096134.3.579.2. 593 1960 Unknown [id number] 2.16.840.1.761192.3.579.2. 1242 1960 Unknown [id number] 2.16.840.1.546662.3.579.2. 356 1960 Unknown [id number] 2.16.840.1.948903.3.579.2. 356 1960 Unknown [id number] 2.16.840.1.977554.3.579.2. 356 1960 Unknown [id number] 2.16.840.1.968470.3.579.2. 356 1960 Unknown [id number] 2.16.840.1.071857.3.579.2. 1245 1960 Unknown [id number] 2.16.840.1.992693.3.579.2. 727 1960 Unknown [id number] 2.16.840.1.868108.3.579.2. 727 1960 Unknown [id number] 2.16.840.1.175862.3.579.2. 125 1960 Unknown [id number] 2.16.840.1.268517.3.579.2. 1259 1960 Unknown [id number] 2.16.840.1.516796.3.579.2. 1259 1960 Unknown [id number] 2.16.840.1.094865.3.579.2. 1259 1960 Unknown [id number] 2.16.840.1.716705.3.579.2. 125 1960 Unknown [id number] 2.16.840.1.362249.3.579.2. 1259 1960 Unknown [id number] 2.16.840.1.420337.3.579.2. 727 1960 Unknown [id number] 2.16.840.1.559660.3.579.2. 727 1960 Unknown [id number] 2.16.840.1.402185.3.579.2. 727 1960 Unknown [id number] 2.16.840.1.550928.3.579.2. 727 1960 Unknown [id number] 2.16.840.1.522106.3.579.2. 1244 1960 Unknown [id number] 2.16.840.1.231196.3.579.2. 1244 1960 Unknown [id number] 2.16.840.1.265238.3.579.2. 1244 1960 Unknown [id number] 2.16.840.1.300498.3.579.2. 1244 1960 Unknown [id number] 2.16.840.1.987461.3.579.2. 1244 1959 Unknown [id number] 1959 Unknown [id number] Unknown [facility] [id number] Unknown [id number] 2.16.840.1.082412.3.579.2. 531 Unknown [id number] 2.16.840.1.458604.3.579.2. 531 Social History Date Type Detail Facility Start: 02-09-2022 End: 12-24-2024 Occasional alcohol use Occasional alcohol use [facility] Start: 12-15-2021 End: 12-03-2024 Tobacco smoking status NHIS Never smoked tobacco [facility] Start: 12-15-2021 End: 12-03-2024 Tobacco use and exposure Smokeless tobacco non-user [facility] Start: 02-09-2022 End: 12-24-2024 Alcohol intake Current drinker of alcohol (finding) [facility] Start: 01-23-2022 History SDOH Alcohol Comment 2-3 drinks per week [facility] Start: 1960 Sex Assigned At Not on file [facility] Start: 12-26-2021 End: 12-25-2024 Exposure to SARS-CoV-2 (event) Not sure [facility] Start: 12-12-2023 End: 12-24-2024 Sex Assigned At Male [facility] Tobacco smoking status Never [facility] Start: 1960 Sex Assigned At Male F [facility] How often to you hav e a drink containing alcohol? Never [facility] In the past 12 months, was there a time when you were not able to pay the mortgage or rent on time? No [facility] Work Phone: Start: 12-03-2024 Alcohol Comment weekly NOMS He althcare NEGATED: Highlighted rowStart: NINF History of tobacco use Passive smoker [facility] Work Phone: Functional Status Date Assessment Result Facility 12-22-2024 Functional Status N/A [facility] 11-23-2023 Functional Status N/A [facility] 10-16-2022 Functional Status N/A [facility] 08-09-2022 Functional Status N/A [facility] Clinical Notes 12-15-2021 to 12-25-2024 Mare Hughes MD - 12/25/2024 4:00 PM ESTPatient Ivania Pitts - 12/24/2024 2:45 PM WOLF Walton - 12/15/2024 2:30 PM Krishna Pitts - 12/03/2024 8:15 AM ESTPatient Instructions Note Date & Type Note Facility 12-25-2024 History of Present illness Narrative Subjective Philippe Ray is a 64 y.o. male Chief Complaint Pre-op Clearance HPI Patient is in the office for cardiac clearance prior to urological procedure scheduled with Dr. Rivera for kidney stones. Since he was last seen he remained in sinus rhythm as was confirmed by his EKG today. He does have chronic right bundle branch block. He is not currently taking any anticoagulation or antiarrhythmic since he had the ablation a year ago in November 2023. His weight remains slightly above normal his blood pressure is under control on combination of amlodipine and indapamide. Assessment/recommendations: 1-paroxysmal persistent atrial fibrillation. Patient is status post ablation 12/12/2023 and presently in sinus rhythm, he has been off of the anticoagulants and antiarrhythmic therapy. 2-patient need cardiac clearance prior to urological surgery to remove kidney stone scheduled in the near future by Dr. Rivera. The patient's estimated risk of adverse outcome with noncardiac surgery is very low at 0.4% therefore no further cardiac testing is needed. 3-essential hypertension on medical therapy currently under control 4-history of benign right renal mass, status postresection at the [facility] 2021. 5- right bundle branch block which is presently inconsequential. 6-overweight, encouragement provided for active lifestyle and diet control Review of Systems All other systems reviewed and are negative. Vitals: 12/25/24 1556 BP: 124/88 BP Location: Right arm Patient Position: Sitting Pulse: 76 Weight: 95.7 kg (211 lb) Height: 1.829 m (6') EKG done in office today Objective Physical Exam Constitutional: Appearance: Normal appearance. HENT: Nose: Nose normal. Neck: Vascular: No carotid bruit. Cardiovascular: Rate and Rhythm: Normal rate. Pulses: Normal pulses. Heart sounds: Normal heart sounds. Pulmonary: Effort: Pulmonary effort is normal. Abdominal: General: Bowel sounds are normal. Palpations: Abdomen is soft. Musculoskeletal: General: Normal range of motion. Cervical back: Normal range of motion. Right lower leg: No edema. Left lower leg: No edema. Skin: General: Skin is warm and dry. Neurological: General: No focal deficit present. Mental Status: He is alert. Psychiatric: Mood and Affect: Mood normal. Behavior: Behavior normal. Thought Content: Thought content normal. Judgment: Judgment normal. Allergies Patient has no known allergies. Current Medications Current Outpatient Medications: amLODIPine (Norvasc) 10 mg tablet, Take 1 tablet (10 mg) by mouth once daily., Disp: 90 tablet, Rfl: 3 indapamide (Lozol) 1.25 mg tablet, Take 1 tablet (1.25 mg) by mouth once daily in the morning., Disp: 90 tablet, Rfl: 3 Assessment/Plan 1. Preop cardiovascular exam ECG 12 Lead 2. Paroxysmal atrial fibrillation (Multi) 3. Essential hypertension Scribe Attestation By signing my name below, I, Moraima Bronwyn Corona LPN attest that this documentation has been prepared under the direction and in the presence of Mare Hughes MD. Provider Attestation - Scribe documentation All medical record entries made by the Scribe were at my direction and personally dictated by me. I have reviewed the chart and agree that the record accurately reflects my personal performance of the history, physical exam, discussion and plan. documented in this encounter [facility] Work Phone: 12-25-2024 Instructions Moraima Arguello LPN - 12/25/2024 4:00 PM EST Please bring all medicines, vitamins, and herbal supplements with you when you come to the office. Prescriptions will not be filled unless you are compliant with your follow up appointments or have a follow up appointment scheduled as per instruction of your physician. Refills should be requested at the time of your visit. Philippe Ray is clear for surgery from a cardiac standpoint documented in this encounter [facility] Work Phone: 12-24-2024 History of Present illness Narrative Images from the original note were not included. Philippe Ray is a 64 y.o. 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 HPI: Philippe returns here today for all the above. He has had his neurologic testing. He states it does come and go. There are days where he has no issues and then days where it is more problematic. He does describe recently he has been doing a lot of hammering and it has not bothered him. He states at least once a day, he will have the numbness and this does still raise a level of concern for him. He denies any interval changes. 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 This is limited over the years. This is not new. SUBJECTIVE: MEDICATIONS: Current Outpatient Medications Medication Instructions amLODIPine (NORVASC) 10 mg, Daily hydroCHLOROthiazide (HYDRODIURIL) 12.5 mg, Daily indapamide (Lozol) 1.25 MG tablet TAKE 1 TABLET (1.25 MG) BY MOUTH ONCE DAILY IN THE MORNING. metoprolol succinate XL (TOPROL-XL) 25 mg, Daily RT omeprazole (PRILOSEC) 20 mg, Daily before breakfast ALLERGIES: No Known Allergies SURGICAL HISTORY: Past Surgical History: Procedure Laterality Date HIP ARTHROPLASTY Bilateral DAP FAMILY HISTORY: Family History Family history unknown: Yes SOCIAL HISTORY: Social History Tobacco Use Smoking status: Never Smokeless tobacco: Never Vaping Use Vaping status: Never Used Substance Use Topics Alcohol use: Yes Comment: weekly Drug use: Never Depression: Not at risk (12/12/2023) Received from [facility] PHQ-2 Patient Health Questionnaire-2 Score: 0 REVIEW OF SYMPTOMS: The review of systems, history and current medications list are all reviewed today. OBJECTIVE: Visit Vitals Ht 6' Wt 194 lb BMI 26.31 kg/m Smoking Status Never BSA 2.11 m Physical Exam His orthopedic exam reveals the stiffness of his left elbow forearm to be unchanged. He is very limited with regard to his supination, pronation. He does have the positive Tinel's, positive Phalen's at around 20 seconds on the right. He is more like 40-45 seconds on the left. He has no atrophy. Radial and ulnar pulses are brisk otherwise. 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 There is no radial capitellar articulation. No evidence of fracture. Bone quality is fully appropriate. No new or interval findings. Examination of the EMG NCV testing does show moderate median neuropathy at the level of the right wrist with minimal median neuropathy of the left wrist, carpal tunnel syndrome. 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 The findings are discussed. We did recommend supportive care for him and advancement of all activities. We did discuss the concern over carpal tunnel manager terminal. He has not had this over an extended period of time. We did outline the options as being that of watchful observation versus a trial of corticosteroid injection in addition to the conservative things that he is already doing versus surgical intervention in the form of carpal tunnel release. After a lengthy discussion, he wishes to simply monitor. With this, we would recommend he does follow up in three months so this doesn't get away from him. He will call with any questions in the meantime or if he does want to pursue anything further. He does voice understanding of this plan. All of his questions are otherwise answered. He is discharged in stable condition. Cosigned by Ginny Talbert DO at 12/29/2024 7:57 AM EST documented in this encounter [facility] 12-22-2024 Hospital Discharge instructions Patient Education 12/22/2024 16:15:15 Laser Therapy for Kidney Stones Laser Therapy for Kidney Stones Laser therapy for kidney stones is a procedure to break up rock-like masses that form inside the kidneys (kidney stones). It is done using a device that beams a strong light (laser) on the kidney stones. This breaks the stones up into small pieces. These small pieces may leave your body when you pee (urinate) or may be taken out during the procedure. You may need laser therapy if you have kidney stones that are painful or that are stopping you from being able to pee. Tell a health care provider about: Any allergies you have. All medicines you are taking, including vitamins, herbs, eye drops, creams, and msxl-due-adoxgzb medicines. Any problems you or family members have had with anesthesia. Any bleeding problems you have. Any surgeries you have had. Any medical conditions you have. Whether you are or may be . What are the risks? Your health care provider will talk with you about risks. These may include: Infection. Bleeding. Allergic reactions to medicines. Damage to: ?The part of your body that drains pee (urine) from the bladder (urethra). ?The bladder. ?The tube that connects the bladder to the kidneys (ureter). Urinary tract infection (UTI). Urethral stricture. This is when the urethra is narrowed by scarring. Trouble peeing. Blockage of the kidney. This may be caused by a piece of kidney stone. What happens before the procedure? When to stop eating and drinking Follow instructions from your provider about what you may eat and drink. These may include: 8 hours before the procedure ?Stop eating most foods. Do not eat meat, fried foods, or fatty foods. ?Eat only light foods, such as toast or crackers. ?All liquids are okay except energy drinks and alcohol. 6 hours before the procedure ?Stop eating. ?Drink only clear liquids, such as water, clear fruit juice, black coffee, plain tea, and sports drinks. ?Do not drink energy drinks or alcohol. 2 hours before the procedure ?Stop drinking all liquids. ?You may be allowed to take medicines with small sips of water. If you do not follow your provider's instructions, your procedure may be delayed or canceled. Medicines Ask your provider about: ?Changing or stopping your regular medicines. These include any diabetes medicines or blood thinners you take. ?Taking medicines such as aspirin and ibuprofen. These medicines can thin your blood. Do not take them unless your provider tells you to. ?Taking qlgr-mff-gjogwng medicines, vitamins, herbs, and supplements. Tests You may have a physical exam before the procedure. You may also have tests done. These may include: ?Imaging tests. ?Blood or pee tests. Surgery safety Ask your provider: ?How your surgery site will be marked. ?What steps will be taken to help prevent infection. These steps may include: ?Removing hair at the surgery site. ?Washing skin with a soap that kills germs. ?Taking antibiotics. General instructions Do not use any products that contain nicotine or tobacco for at least 4 weeks before the procedure. These products include cigarettes, chewing tobacco, and vaping devices, such as e-cigarettes. If you need help quitting, ask your provider. If you will be going home right after the procedure, plan to have a responsible adult: ?Take you home from the hospital or clinic. You will not be allowed to drive. ?Care for you for the time you are told. What happens during the procedure? An IV will be inserted into one of your veins. You will be given: ?A sedative. This helps you relax. ?Anesthesia. This keeps you from feeling pain. It will make you fall asleep for surgery. A tool with a camera on the end (ureteroscope) will be put into your urethra. It will be moved through your bladder to your kidney. It will send pictures to a screen in the operating room. This will show what parts of your kidney need to be treated. A tube will be put through the ureteroscope. It will be moved into your kidney. The laser device will be put into your kidney through the tube. The laser will be used to break up the kidney stones. A tool with a tiny wire basket may be put through the tube into your kidney. This can help remove the small pieces of the kidney stone. A small mesh tube (stent) may be placed to allow your kidney to drain. The tube and ureteroscope will be taken out at the end of the surgery. The procedure may vary among providers and hospitals. What happens after the procedure? Your blood pressure, heart rate, breathing rate, and blood oxygen level will be monitored until you leave the hospital or clinic. If you had a stent placed, it may have a string that will be secured to your skin. This helps your provider remove the stent. You may be given a strainer to collect any stone pieces that you pass in your pee. Your provider may have these tested. This information is not intended to replace advice given to you by your health care provider. Make sure you discuss any questions you have with your health care provider. Document Revised: 07/06/2023 Document Reviewed: 07/06/2023 [employer] Patient Education 2023 [employer]. Follow Up Care 11/23/2023 11:37:15 With:NICOLE HERNANDEZ, Rommel Frias, URL Address: [facility] [address] [place] [phone] When: Unknown [facility]24 Note Patient Education Nephrology Laser Therapy for Kidney Stones Laser therapy for kidney stones is a procedure to break up rock-like masses that form inside the kidneys (kidney stones). It is done using a device that beams a strong light (laser) on the kidney stones. This breaks the stones up into small pieces. These small pieces may leave your body when you pee (urinate) or may be taken out during the procedure. You may need laser therapy if you have kidney stones that are painful or that are stopping you from being able to pee. Tell a health care provider about: ??? Any allergies you have. ??? All medicines you are taking, including vitamins, herbs, eye drops, creams, and zfzb-ain-rzllnhi medicines. ??? Any problems you or family members have had with anesthesia. ??? Any bleeding problems you have. ??? Any surgeries you have had. ??? Any medical conditions you have. ??? Whether you are or may be . What are the risks? Your health care provider will talk with you about risks. These may include: ??? Infection. ??? Bleeding. ??? Allergic reactions to medicines. ??? Damage to: ? The part of your body that drains pee (urine) from the bladder (urethra). ? The bladder. ? The tube that connects the bladder to the kidneys (ureter). ??? Urinary tract infection (UTI). ??? Urethral stricture. This is when the urethra is narrowed by scarring. ??? Trouble peeing. ??? Blockage of the kidney. This may be caused by a piece of kidney stone. What happens before the procedure? When to stop eating and drinking Follow instructions from your provider about what you may eat and drink. These may include: ??? 8 hours before the procedure ? Stop eating most foods. Do not eat meat, fried foods, or fatty foods. ? Eat only light foods, such as toast or crackers. ? All liquids are okay except energy drinks and alcohol. ??? 6 hours before the procedure ? Stop eating. ? Drink only clear liquids, such as water, clear fruit juice, black coffee, plain tea, and sports drinks. ? Do not drink energy drinks or alcohol. ??? 2 hours before the procedure ? Stop drinking all liquids. ? You may be allowed to take medicines with small sips of water. ??? If you do not follow your provider's instructions, your procedure may be delayed or canceled. Medicines ??? Ask your provider about: ? Changing or stopping your regular medicines. These include any diabetes medicines or blood thinners you take. ? Taking medicines such as aspirin and ibuprofen. These medicines can thin your blood. Do not take them unless your provider tells you to. ? Taking jokk-jnh-ibejbyz medicines, vitamins, herbs, and supplements. Tests ??? You may have a physical exam before the procedure. You may also have tests done. These may include: ? Imaging tests. ? Blood or pee tests. Surgery safety ??? Ask your provider: ? How your surgery site will be marked. ? What steps will be taken to help prevent infection. These steps may include: ? Removing hair at the surgery site. ? Washing skin with a soap that kills germs. ? Taking antibiotics. General instructions ??? Do not use any products that contain nicotine or tobacco for at least 4 weeks before the procedure. These products include cigarettes, chewing tobacco, and vaping devices, such as e-cigarettes. If you need help quitting, ask your provider. ??? If you will be going home right after the procedure, plan to have a responsible adult: ? Take you home from the hospital or clinic. You will not be allowed to drive. ? Care for you for the time you are told. What happens during the procedure? An IV will be inserted into one of your veins. ??? You will be given: ? A sedative. This helps you relax. ? Anesthesia. This keeps you from feeling pain. It will make you fall asleep for surgery. ??? A tool with a camera on the end (ureteroscope) will be put into your urethra. It will be moved through your bladder to your kidney. It will send pictures to a screen in the operating room. This will show what parts of your kidney need to be treated. ??? A tube will be put through the ureteroscope. It will be moved into your kidney. ??? The laser device will be put into your kidney through the tube. The laser will be used to break up the kidney stones. ??? A tool with a tiny wire basket may be put through the tube into your kidney. This can help remove the small pieces of the kidney stone. ??? A small mesh tube (stent) may be placed to allow your kidney to drain. ??? The tube and ureteroscope will be taken out at the end of the surgery. The procedure may vary among providers and hospitals. What happens after the procedure? Your blood pressure, heart rate, breathing rate, and blood oxygen level will be monitored until you leave the hospital or clinic. ??? If you had a stent placed, it may have a string that will be secured to your skin. This helps yo (more content not included)... [facility] 12-15-2024 History of Present illness Narrative Images from the original note were not included. Reason for Appointment: EMG Patient: Philippe Ray : 1960 EMG Computer: [employer] Referring Physician: Dr. Ginny Talbert EMG: JANETT internal communications intern: Romario Carrasco RT(R) Office Location: [place] Reason for EMG: c/o numbness/tingling & pain in bilateral hands/arms R>L. No hx of DM. Not on blood thinners. Comments: Procedure was explained to the patient who expressed understanding. Patient appeared to have tolerated the test well despite some discomfort due to the nature of the test. documented in this encounter [facility] 12-03-2024 History of Present illness Narrative Images from the original note were not included. Philippe Ray is a 64 y.o. male presents with chief complaint of right greater than left wrist pain. Some numbness on the right. HPI: Philippe is a 61-year-old right hand dominant white male here today for evaluation of his hand and wrist area, right greater than left. He has some numbness on the right. This has been a couple of months but he states it has been years overall. 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 He has limitation in motion. He really cannot supinate. He states that this is at the level of his elbow. He does have some wrist pain on this side. He questions whether it is compensatory. SUBJECTIVE: MEDICATIONS: Current Outpatient Medications Medication Instructions amLODIPine (NORVASC) 10 mg, Oral, Daily hydroCHLOROthiazide (HYDRODIURIL) 12.5 mg, Oral, Daily indapamide (Lozol) 1.25 MG tablet TAKE 1 TABLET (1.25 MG) BY MOUTH ONCE DAILY IN THE MORNING. metoprolol succinate XL (TOPROL-XL) 25 mg, Daily RT omeprazole (PRILOSEC) 20 mg, Oral, Daily before breakfast ALLERGIES: No Known Allergies SURGICAL HISTORY: Past Surgical History: Procedure Laterality Date HIP ARTHROPLASTY Bilateral DAP FAMILY HISTORY: Family History Family history unknown: Yes SOCIAL HISTORY: Social History Tobacco Use Smoking status: Never Smokeless tobacco: Never Vaping Use Vaping status: Never Used Substance Use Topics Alcohol use: Yes Comment: weekly Drug use: Never Depression: Not at risk (12/12/2023) Received from [facility] PHQ-2 Patient Health Questionnaire-2 Score: 0 REVIEW OF SYMPTOMS: The review of systems, history and current medications list are all reviewed today. OBJECTIVE: Visit Vitals Ht 6' BMI 26.45 kg/m Smoking Status Never BSA 2.12 m Physical Exam His orthopedic exam here today shows a pleasant 61-year-old white male. He has no gross malalignment or deformity on the right. He does have a positive Tinel's, positive Phalen's at around 30 seconds on the right. No atrophy. Radial and ulnar pulses are brisk. On the left side, definitely more difficult exam as he does not supinate. He does have a positive Tinel's, equivocal Phalen's on this side. 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 His radial and ulnar pulses are brisk on this side. X-rays AP, lateral and oblique of the right hand and wrist area total of three views does show some basilar thumb carpometacarpal joint osteoarthritis. No evidence of fracture or other osseous abnormality. X-rays AP, lateral and oblique of the left wrist and hand total of three views with permanent images are saved to the record does show obvious change at the distal ulna. He does have an ulnar plus variance. There is some calcific change, likely some involvement down to the level of the distal radioulnar joint. No evidence of deformity otherwise. 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 The findings are discussed. We did outline the findings here today and did recommend neurodiagnostic testing. This has been going on for a bit of time. It is definitely more than two months. He is in an occupation where he is more at risk for this sort of problem. He does voice understanding of this. We will move forward with getting this done. We did outline the expectations with regard to testing. We did discuss at some length his findings with regard to the elbow and deformity. We can certainly look into this further and if ever we did come to a surgical discussion, this would make some sense as well. He does voice understanding of this. All of his questions are otherwise answered. We will do an x-ray of his left elbow upon his return for completeness sake. Follow up letter sent to Dr. Richardson. Cosigned by Ginny Talbert DO at 12/08/2024 7:34 AM EST documented in this encounter [facility] 10-15-2024 History of Present illness Narrative Subjective Philippe Ray is a 64 y.o. male Chief Complaint Follow-up; Hypertension Hypertension Patient is in the office for hypertension management. Since indapamide 1.25 mg daily was initiated his pressure has normalized without any side effects. He is due for basic metabolic profile which will be done today. Review of Systems All other systems reviewed and are negative. Vitals: 10/15/24 0834 BP: 124/82 BP Location: Left arm Patient Position: Sitting Pulse: 84 Weight: 113 kg (250 lb) Height: 1.829 m (6') Objective Physical Exam Allergies Patient has no known allergies. Current Medications Current Outpatient Medications: amLODIPine (Norvasc) 10 mg tablet, Take 1 tablet (10 mg) by mouth once daily., Disp: 90 tablet, Rfl: 3 indapamide (Lozol) 1.25 mg tablet, Take 1 tablet (1.25 mg) by mouth once daily in the morning., Disp: 90 tablet, Rfl: 3 metoprolol succinate XL (Toprol-XL) 25 mg 24 hr tablet, Take 1 tablet (25 mg) by mouth once daily. Do not crush or chew., Disp: 5 tablet, Rfl: 0 omeprazole (PriLOSEC) [address] capsule, Take 1 capsule (20 mg) by mouth once daily in the morning. Take before meals. Do not crush or chew., Disp: , Rfl: Assessment/Plan 1. Benign essential hypertension Follow Up In Cardiology 2. Never smoked tobacco 3. BMI 33.0-33.9,adult Scribe Attestation By signing my name below, I, Christina Izquierdo LPN, Scribe attest that this documentation has been prepared under the direction and in the presence of Mare Hughes MD. Provider Attestation - Scribe documentation All medical record entries made by the Scribe were at my direction and personally dictated by me. I have reviewed the chart and agree that the record accurately reflects my personal performance of the history, physical exam, discussion and plan. documented in this encounter [facility] Work Phone: 10-15-2024 Instructions Christina Styles LPN - 10/15/2024 8:30 AM EST Please bring all medicines, vitamins, and herbal supplements with you when you come to the office. Prescriptions will not be filled unless you are compliant with your follow up appointments or have a follow up appointment scheduled as per instruction of your physician. Refills should be requested at the time of your visit. BMI was above normal measurement. Current weight: 113 kg (250 lb) Weight change since last visit (-) denotes wt loss 43 lbs Weight loss needed to achieve BMI 25: 66.1 Lbs Weight loss needed to achieve BMI 30: 29.3 Lbs Provided instructions on dietary changes Provided instructions on exercise. March visit as scheduled Lab work documented in this encounter [facility] Work Phone: 08-19-2024 History of Present illness Narrative Subjective Philippe Ray is a 64 y.o. male Chief Complaint Follow-up HPI Patient is in the office for follow-up for paroxysmal atrial fibrillation status post ablation earlier this year and with no recurrences. EKG today confirms sinus rhythm with right bundle branch block. His blood pressure is elevated on the diastolic side. He is currently asymptomatic and he remains on Xarelto. He is slightly overweight and encouragement from weight loss was provided. Assessment/recommendations: 1-paroxysmal persistent atrial fibrillation. Patient is status post ablation 12/12/2023 and presently in sinus rhythm, will discontinue Xarelto and wean off beta-cayetano therapy. 2-essential hypertension on medical therapy not completely under control, will switch from hydrochlorothiazide to indapamide at 1.25 mg daily and follow his BP and labs in few weeks, low-salt diet was recommended 3-history of benign right renal mass, status postresection at the [facility] 2021. 5- right bundle branch block which is presently inconsequential. 6-overweight, encouragement provided for active lifestyle and diet control Review of Systems All other systems reviewed and are negative. Vitals: 08/19/24 0835 08/19/24 0852 BP: 128/90 (!) 125/95 BP Location: Right arm Patient Position: Sitting Sitting Pulse: 78 Weight: 93.9 kg (207 lb) Height: 1.829 m (6') Objective Physical Exam Constitutional: Appearance: Normal appearance. HENT: Nose: Nose normal. Neck: Vascular: No carotid bruit. Cardiovascular: Rate and Rhythm: Normal rate. Pulses: Normal pulses. Heart sounds: Normal heart sounds. Pulmonary: Effort: Pulmonary effort is normal. Abdominal: General: Bowel sounds are normal. Palpations: Abdomen is soft. Musculoskeletal: General: Normal range of motion. Cervical back: Normal range of motion. Right lower leg: No edema. Left lower leg: No edema. Skin: General: Skin is warm and dry. Neurological: General: No focal deficit present. Mental Status: He is alert. Psychiatric: Mood and Affect: Mood normal. Behavior: Behavior normal. Thought Content: Thought content normal. Judgment: Judgment normal. Allergies Patient has no known allergies. Current Medications Current Outpatient Medications: amLODIPine (Norvasc) 10 mg tablet, Take 1 tablet (10 mg) by mouth once daily., Disp: 90 tablet, Rfl: 3 omeprazole (PriLOSEC) [address] capsule, Take 1 capsule (20 mg) by mouth once daily in the morning. Take before meals. Do not crush or chew., Disp: , Rfl: indapamide (Lozol) 1.25 mg tablet, Take 1 tablet (1.25 mg) by mouth once daily in the morning., Disp: 90 tablet, Rfl: 3 metoprolol succinate XL (Toprol-XL) 25 mg 24 hr tablet, Take 1 tablet (25 mg) by mouth once daily. Do not crush or chew., Disp: 5 tablet, Rfl: 0 Assessment/Plan 1. Benign essential hypertension Follow Up In Cardiology indapamide (Lozol) 1.25 mg tablet Basic Metabolic Panel metoprolol succinate XL (Toprol-XL) 25 mg 24 hr tablet Follow Up In Cardiology 2. Paroxysmal atrial fibrillation (Multi) Follow Up In Cardiology ECG 12 Lead 3. RBBB (right bundle branch block) 4. Right bundle branch block (RBBB) determined by electrocardiography 5. Never smoked tobacco 6. BMI 28.0-28.9,adult Scribe Attestation By signing my name below, I, Christina Izquierdo LPN , [place] attest that this documentation has been prepared under the direction and in the presence of Mare Hughes MD. Provider Attestation - Scribe documentation All medical record entries made by the Scribe were at my direction and personally dictated by me. I have reviewed the chart and agree that the record accurately reflects my personal performance of the history, physical exam, discussion and plan. documented in this encounter [facility] Work Phone: 08-19-2024 Instructions Christina Styles LPN - 08/19/2024 8:40 AM EDT Please bring all medicines, vitamins, and herbal supplements with you when you come to the office. Prescriptions will not be filled unless you are compliant with your follow up appointments or have a follow up appointment scheduled as per instruction of your physician. Refills should be requested at the time of your visit. Stop Xarelto Stop/wean off of Toprol Follow up BMI was above normal measurement. Current weight: 93.9 kg (207 lb) Weight change since last visit (-) denotes wt loss 5 lbs Weight loss needed to achieve BMI 25: 23.1 Lbs Weight loss needed to achieve BMI 30: -13.7 Lbs Provided instructions on dietary changes. documented in this encounter [facility] Work Phone: 04-02-2024 History of Present illness Narrative Subjective Philippe Ray is a 63 y.o. male Chief Complaint Follow-up HPI Patient is in the office for follow-up for the problems noted below. He has had no recurrent atrial fibrillation since he was last seen in the office. He was followed by electrophysiology and the amiodarone was discontinued. He is still on rivaroxaban. He is back to his normal activities he indicated to me having severe side effect of the amiodarone mostly feeling foggy and severe headache which is improving gradually since he stopped taking the medicine. He is slightly overweight and his EKG reveals sinus rhythm with right bundle branch block. Assessment/recommendations: 1-paroxysmal persistent atrial fibrillation. Patient is status post ablation 12/12/2023 and presently in sinus rhythm, currently not on antiarrhythmic therapy but he is on rivaroxaban he was advised to continue Roxiprin for next 4 months in the absence of recurrent symptoms he will be taken off of it and maybe also take him off of the metoprolol. 2-hypertension on medical therapy under control 3-history of benign right renal mass, status postresection at the [facility] 2021. 4-high risk medication with anticoagulants. Well-tolerated. 5- right bundle branch block which is presently inconsequential. 6-overweight, encouragement provided for active lifestyle and diet control Review of Systems All other systems reviewed and are negative. Vitals: 04/02/24 0901 BP: 106/84 BP Location: Left arm Patient Position: Sitting Pulse: 80 Weight: 87.5 kg (193 lb) Height: 1.829 m (6') EKG done in office today Objective Physical Exam Constitutional: Appearance: Normal appearance. HENT: Nose: Nose normal. Neck: Vascular: No carotid bruit. Cardiovascular: Rate and Rhythm: Normal rate. Pulses: Normal pulses. Heart sounds: Normal heart sounds. Pulmonary: Effort: Pulmonary effort is normal. Abdominal: General: Bowel sounds are normal. Palpations: Abdomen is soft. Musculoskeletal: General: Normal range of motion. Cervical back: Normal range of motion. Right lower leg: No edema. Left lower leg: No edema. Skin: General: Skin is warm and dry. Neurological: General: No focal deficit present. Mental Status: He is alert. Psychiatric: Mood and Affect: Mood normal. Behavior: Behavior normal. Thought Content: Thought content normal. Judgment: Judgment normal. Allergies Patient has no known allergies. Current Medications Current Outpatient Medications: amLODIPine (Norvasc) 10 mg tablet, Take 1 tablet (10 mg) by mouth once daily., Disp: 90 tablet, Rfl: 3 Denta 5000 Plus 1.1 % dental cream, BRUSH FOR 2 MINUTES AT BEDTIME .AFTER USE,EXPECTORATE.DO NOT EAT,DRINK OR RINSE X30 MINUTES, Disp: , Rfl: hydroCHLOROthiazide (HYDRODiuril) 12.5 mg tablet, Take 1 tablet (12.5 mg) by mouth once daily., Disp: 90 tablet, Rfl: 3 metoprolol succinate XL (Toprol-XL) 25 mg 24 hr tablet, Take 1 tablet (25 mg) by mouth once daily., Disp: , Rfl: omeprazole (PriLOSEC) [address] capsule, Take 1 capsule (20 mg) by mouth once daily in the morning. Take before meals. Do not crush or chew., Disp: , Rfl: rivaroxaban (Xarelto) 20 mg tablet, Take 1 tablet (20 mg) by mouth once daily. Take with food., Disp: , Rfl: Assessment/Plan 1. Paroxysmal atrial fibrillation (Multi) Follow Up In Cardiology Follow Up In Cardiology ECG 12 Lead 2. Benign essential hypertension Follow Up In Cardiology 3. Right bundle branch block (RBBB) determined by electrocardiography 4. Overweight with body mass index (BMI) of 26 to 26.9 in adult 5. Never smoked tobacco 6. High risk medication use Scribe Attestation By signing my name below, Christina Antunez LPN, Scribe attest that this documentation has been prepared under the direction and in the presence of Mare Hughes MD. Provider Attestation - Scribe documentation All medical record entries made by the Scribe were at my direction and personally dictated by me. I have reviewed the chart and agree that the record accurately reflects my personal performance of the history, physical exam, discussion and plan. documented in this encounter [facility] Work Phone: 04-02-2024 Instructions Christina Styels LPN - 04/02/2024 9:10 AM EDT Please bring all medicines, vitamins, and herbal supplements with you when you come to the office. Prescriptions will not be filled unless you are compliant with your follow up appointments or have a follow up appointment scheduled as per instruction of your physician. Refills should be requested at the time of your visit. 4 months Same meds BMI was above normal measurement. Current weight: 87.5 kg (193 lb) Weight change since last visit (-) denotes wt loss -8 lbs Weight loss needed to achieve BMI 25: 9.1 Lbs Weight loss needed to achieve BMI 30: -27.7 Lbs Provided instructions on dietary changes. documented in this encounter [facility] Work Phone: 12-14-2023 History of Present illness Narrative Subjective Philippe Ray is a 63 y.o. male Chief Complaint Follow-up HPI Patient is in the office for follow-up for fibrillation, he had ablation 12/12/[address] Nicole and he is presently in sinus rhythm with right bundle branch block. The procedure was uncomplicated in general. His pressure is under control and presently has no complaints. Review of system was normal examination was normal. Assessment/recommendations: 1-paroxysmal persistent atrial fibrillation. Patient is status post ablation 12/12/2023 and presently in sinus rhythm on amiodarone. Will increase amiodarone to 300 mg daily to ensure no recurrence of atrial fibrillation while waiting for the ablation procedure to mature. He will remain on Xarelto. He is scheduled to be seen at in couple of weeks and he will come back to see me in March 2024 or sooner if needed. 2-hypertension on medical therapy under control 3-history of benign right renal mass, status postresection at the [facility] 2021. 4-high risk medication with antiarrhythmics and anticoagulants. Well-tolerated. 5- right bundle branch block which is presently inconsequential. 6-overweight, encouragement provided for active lifestyle and diet control Review of Systems All other systems reviewed and are negative. Visit Vitals BP 122/80 (BP Location: Right arm, Patient Position: Sitting) Pulse 79 Ht 1.829 m (6') Wt 91.2 kg (201 lb) BMI 27.26 kg/m Smoking Status Never BSA 2.15 m EKG done in office today Objective Physical Exam Constitutional: Appearance: Normal appearance. He is normal weight. HENT: Nose: Nose normal. Neck: Vascular: No carotid bruit. Cardiovascular: Rate and Rhythm: Normal rate. Pulses: Normal pulses. Heart sounds: Normal heart sounds. Pulmonary: Effort: Pulmonary effort is normal. Abdominal: General: Bowel sounds are normal. Palpations: Abdomen is soft. Genitourinary: Rectum: Normal. Musculoskeletal: General: Normal range of motion. Cervical back: Normal range of motion. Right lower leg: No edema. Left lower leg: No edema. Skin: General: Skin is warm and dry. Neurological: General: No focal deficit present. Mental Status: He is alert. Psychiatric: Mood and Affect: Mood normal. Behavior: Behavior normal. Thought Content: Thought content normal. Judgment: Judgment normal. Current Medications Current Outpatient Medications: amLODIPine (Norvasc) 5 mg tablet, Take 1 tablet (5 mg) by mouth once daily., Disp: 90 tablet, Rfl: 3 hydroCHLOROthiazide (HYDRODiuril) 12.5 mg tablet, Take 1 tablet (12.5 mg) by mouth once daily., Disp: 90 tablet, Rfl: 3 metoprolol succinate XL (Toprol-XL) 25 mg 24 hr tablet, Take 1 tablet (25 mg) by mouth once daily., Disp: , Rfl: pantoprazole (ProtoNix) 40 mg EC tablet, Take 1 tablet (40 mg) by mouth 2 times a day. Do not crush, chew, or split., Disp: 60 tablet, Rfl: 0 rivaroxaban (Xarelto) 20 mg tablet, Take 1 tablet (20 mg) by mouth once daily. Take with food., Disp: , Rfl: amiodarone (Pacerone) 200 mg tablet, Take 1.5 tablets (300 mg) by mouth once daily. Take 1.5 tablets daily or 300 mg, Disp: 45 tablet, Rfl: 5 No current facility-administered medications for this visit. Assessment/Plan 1. Paroxysmal atrial fibrillation (CMS/HCC) Follow Up In Cardiology ECG 12 Lead amiodarone (Pacerone) 200 mg tablet 2. Benign essential hypertension Follow Up In Cardiology 3. RBBB (right bundle branch block) 4. High risk medication use 5. Overweight documented in this encounter [facility] Work Phone: 12-14-2023 Instructions Christina Styles LPN - 12/14/2023 9:00 AM EST Please bring all medicines, vitamins, and herbal supplements with you when you come to the office. Prescriptions will not be filled unless you are compliant with your follow up appointments or have a follow up appointment scheduled as per instruction of your physician. Refills should be requested at the time of your visit. Amio increase to 300mg daily Follow up May documented in this encounter [facility] Work Phone: 12-13-2023 Plan of care note The patient's goals for the shift include The clinical goals for the shift include Patient will not have bleeding at groin site throughout shift [facility] 12-13-2023 Miscellaneous Notes The patient's goals for the shift include The clinical goals for the shift include Patient will not have bleeding at groin site throughout shift Problem: Pain - Adult Goal: Verbalizes/displays adequate comfort level or baseline comfort level Outcome: Progressing Problem: Safety - Adult Goal: Free from fall injury Outcome: Progressing Problem: Discharge Planning Goal: Discharge to home or other facility with appropriate resources Outcome: Progressing Problem: Chronic Conditions and Co-morbidities Goal: Patient's chronic conditions and co-morbidity symptoms are monitored and maintained or improved Outcome: Progressing The clinical goals for the shift include Patient will not have bleeding at groin site throughout shift Over the shift, the patient did make progress toward the following goals. documented in this encounter [facility] Work Phone: 12-13-2023 Hospital course Narrative Discharge Diagnosis Atrial fibrillation s/p ablation (PVI) Test Results Pending At Discharge: none Hospital Course: 63yo M referred by Dr Hughes for AF. PMH of HTN, benign renal mass, obesity, cRBBB and AF on Xarelto, metop, and Amiodarone. Presented from home for planned AF ablation. Pt underwent ablation without complication on 12/12/23 (see procedure report). Pt was to go home same day but had groin ooze at RFV access site. Thus, pt stayed overnight on telemetry for continued monitoring; tele was benign and showed NSR. On day of discharge, AVSS, pt had voided and ambulated without issues. RFV access sites remained stable without active bleeding or hematoma. Post ablation EKGs were reviewed and were without acute changes. Case was d/w EP attending and EP fellow Blaine Barraza MD who agreed pt was stable and appropriate for discharge home. Post procedure written instructions were reviewed with pt and all questions answered. Start pantoprazole BID for 1 month post ablation for esophageal prophylaxis; pt will hold home omeprazole QD and resume this once he finishes taking pantoprazole. Per Dr Nicole, plan to continue Amio for 2 months post ablation. 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 EP F/u 1 month with Janet Garrido CNP as scheduled next month. Pertinent Physical Exam At Time of Discharge Gen-A+O x 3 Skin-W+D Lungs-CTAB CV-RRR, no rub Abd-soft, NT/ND, +BS Extrem-no LE edema; RFV access sites with mild ecchymosis on each side of puncture without bleeding or hematoma Neuro-KAUR; normal gait observed Psych-appropriate mood and affect Home Medications START taking these medications pantoprazole 40 mg EC tablet; Commonly known as: ProtoNix; Take 1 tablet (40 mg) by mouth 2 times a day. Do not crush, chew, or split. CONTINUE taking these medications amiodarone 200 mg tablet; Commonly known as: Pacerone; Take 1 tablet (200 mg) by mouth once daily. amLODIPine 5 mg tablet; Commonly known as: Norvasc; Take 1 tablet (5 mg) by mouth once daily. hydroCHLOROthiazide 12.5 mg tablet; Commonly known as: HYDRODiuril; Take 1 tablet (12.5 mg) by mouth once daily. metoprolol succinate XL 25 mg 24 hr tablet; Commonly known as: Toprol-XL Xarelto 20 mg tablet; Generic drug: rivaroxaban daily with a meal STOP taking these medications omeprazole [address] capsule; Commonly known as: PriLOSEC; resume once finishes pantoprazole Outpatient Follow-Up Future Appointments Date Time Provider Department Center 12/14/2023 9:00 AM Mare Hughes MD [id number] [place] 01/15/2024 3:30 PM Janet Garrido APRN-TRAINING ADMINISTRATOR [id number] Academic Greater than 30 min were spent on medication education, post ablation teaching, and coordination of discharge SUSI Gibbs PA-C, [facility] Inpatient Cardiac Electrophysiology documented in this encounter [facility] Work Phone: 12-12-2023 Plan of care note Problem: Pain - Adult Goal: Verbalizes/displays adequate comfort level or baseline comfort level Outcome: Progressing Problem: Safety - Adult Goal: Free from fall injury Outcome: Progressing Problem: Discharge Planning Goal: Discharge to home or other facility with appropriate resources Outcome: Progressing Problem: Chronic Conditions and Co-morbidities Goal: Patient's chronic conditions and co-morbidity symptoms are monitored and maintained or improved Outcome: Progressing The clinical goals for the shift include Patient will not have bleeding at groin site throughout shift Over the shift, the patient did make progress toward the following goals. [facility] Work Phone: 12-12-2023 History of Present illness Narrative Pharmacy Medication History Review Philippe Ray is a 63 y.o. male admitted for Atrial fibrillation ([facility]). Pharmacy reviewed the patient's izmhu-jn-wjcdvcrii medications and allergies for accuracy. The list below reflects the updated VIDEO GAME SCRIPT WRITER list. Comments regarding how patient may be taking medications differently can be found in the Admit Orders Activity Prior to Admission Medications Prescriptions Last Dose Informant amLODIPine (Norvasc) 5 mg tablet 12/11/2023 Self Sig: Take 1 tablet (5 mg) by mouth once daily. amiodarone (Pacerone) 200 mg tablet 12/11/2023 Self Sig: Take 1 tablet (200 mg) by mouth once daily. hydroCHLOROthiazide (HYDRODiuril) 12.5 mg tablet 12/11/2023 Self Sig: Take 1 tablet (12.5 mg) by mouth once daily. metoprolol succinate XL (Toprol-XL) 25 mg 24 hr tablet 12/11/2023 Self Sig: Take 1 tablet (25 mg) by mouth once daily. omeprazole (PriLOSEC) [address] capsule 12/11/2023 Self Sig: Take 2 capsules (40 mg) by mouth once daily. rivaroxaban (Xarelto) 20 mg tablet 12/11/2023 Self Sig: Take 1 tablet (20 mg) by mouth once daily. Take with food. Facility-Administered Medications: None The list below reflects the updated allergy list. Please review each documented allergy for additional clarification and justification. Allergies Reviewed by Marta Martinez PharmD on 12/12/2023 No Known Allergies Patient was unable to be assessed for M2B at discharge. Pharmacy has been updated to [facility]. M2B service not offered prior to surgery, please reassess prior to patient discharge if Meds to Beds is desired. Sources used to complete the med history include: Patient interview - good historian of medications/ Pharmacy - [facility]/ Chart review - Cardiology note 09/10/23 Marta Martinez PharmD Transitions of Care Pharmacist [facility] Please reach out via Secure Chat for questions, or if no response call [employer] or [employer] documented in this encounter [facility] Work Phone: 12-12-2023 History and physical note History Of Present Illness Philippe Ray is a 63 y.o. male presenting for RFA procedure. PMH includes HTN, benign renal mass, obesity, RBBB and AF. Treatment of his AF includes Flecainide, DCCV (08/10/23), metoprolol and Amiodarone. Symptoms of his AF include KRUEGER and fatigue. Pt follows with Dr Hughes for his cardiology management. His AF has been managed on Flecainide and metoprolol. He followed up with Dr Hughes in July for persistent AF despite Flecainide. He underwent DCCV on 08/10/23. His 1 week ECG showed a reoccurrence of AF so he was switched to Amiodarone. Pts follow-up ECG on 08/30/23 showed that he remained in AF. The decision was made at that time to refer for AF ablation. Pt is currently managed on Metoprolol, Amio and Xarelto. Pt is still currently on Amiodarone 400 mg BID and his does has not been decreased. Pt presents today to discuss AF ablation for persistent AF. Echo 01/2022: EF 50-55%, DD Past Medical History No past medical history on file. Surgical History Past Surgical History: Procedure Laterality Date OTHER SURGICAL HISTORY 01/11/2022 Lumbar discectomy OTHER SURGICAL HISTORY 01/11/2022 Hip replacement OTHER SURGICAL HISTORY 01/11/2022 Vasectomy OTHER SURGICAL HISTORY 01/11/2022 Tonsillectomy OTHER SURGICAL HISTORY 01/11/2022 Complete colonoscopy OTHER SURGICAL HISTORY 01/11/2022 Knee surgery OTHER SURGICAL HISTORY 01/11/2022 Back surgery Social History He reports that he has never smoked. He has never been exposed to tobacco smoke. He has never used smokeless tobacco. He reports current alcohol use of about 2.0 standard drinks of alcohol per week. He reports that he does not use drugs. Family History Family History Problem Relation Name Age of Onset Aneurysm Mother Diabetes Father Hypertension Father Allergies Patient has no known allergies. Review of Systems All other systems reviewed and are negative. Physical Exam Vitals and nursing note reviewed. Constitutional: Appearance: Normal appearance. He is normal weight. HENT: Head: Normocephalic and atraumatic. Right Ear: Tympanic membrane normal. Left Ear: Tympanic membrane normal. Nose: Nose normal. Mouth/Throat: Mouth: Mucous membranes are moist. Pharynx: Oropharynx is clear. Eyes: Extraocular Movements: Extraocular movements intact. Conjunctiva/sclera: Conjunctivae normal. Pupils: Pupils are equal, round, and reactive to light. Cardiovascular: Rate and Rhythm: Normal rate and regular rhythm. Pulses: Normal pulses. Heart sounds: Normal heart sounds. Pulmonary: Effort: Pulmonary effort is normal. Breath sounds: Normal breath sounds. Abdominal: General: Abdomen is flat. Musculoskeletal: General: Normal range of motion. Cervical back: Normal range of motion and neck supple. Skin: General: Skin is warm. Neurological: General: No focal deficit present. Mental Status: He is alert and oriented to person, place, and time. Mental status is at baseline. Last Recorded Vitals There were no vitals taken for this visit. Relevant Results Assessment/Plan Principal Problem: Atrial fibrillation (CMS/HCC) RFA/PVI procedure with general anesthesia I spent 20 minutes in the professional and overall care of this patient. Oksana Barraza MD [facility] Work Phone: 12-12-2023 History and physical note History Of Present Illness Philippe Ray is a 63 y.o. male presenting for RFA procedure. PMH includes HTN, benign renal mass, obesity, RBBB and AF. Treatment of his AF includes Flecainide, DCCV (08/10/23), metoprolol and Amiodarone. Symptoms of his AF include KRUEGER and fatigue. Pt follows with Dr Hughes for his cardiology management. His AF has been managed on Flecainide and metoprolol. He followed up with Dr Hughes in July for persistent AF despite Flecainide. He underwent DCCV on 08/10/23. His 1 week ECG showed a reoccurrence of AF so he was switched to Amiodarone. Pts follow-up ECG on 08/30/23 showed that he remained in AF. The decision was made at that time to refer for AF ablation. Pt is currently managed on Metoprolol, Amio and Xarelto. Pt is still currently on Amiodarone 400 mg BID and his does has not been decreased. Pt presents today to discuss AF ablation for persistent AF. Echo 01/2022: EF 50-55%, DD Past Medical History No past medical history on file. Surgical History Past Surgical History: Procedure Laterality Date OTHER SURGICAL HISTORY 01/11/2022 Lumbar discectomy OTHER SURGICAL HISTORY 01/11/2022 Hip replacement OTHER SURGICAL HISTORY 01/11/2022 Vasectomy OTHER SURGICAL HISTORY 01/11/2022 Tonsillectomy OTHER SURGICAL HISTORY 01/11/2022 Complete colonoscopy OTHER SURGICAL HISTORY 01/11/2022 Knee surgery OTHER SURGICAL HISTORY 01/11/2022 Back surgery Social History He reports that he has never smoked. He has never been exposed to tobacco smoke. He has never used smokeless tobacco. He reports current alcohol use of about 2.0 standard drinks of alcohol per week. He reports that he does not use drugs. Family History Family History Problem Relation Name Age of Onset Aneurysm Mother Diabetes Father Hypertension Father Allergies Patient has no known allergies. Review of Systems All other systems reviewed and are negative. Physical Exam Vitals and nursing note reviewed. Constitutional: Appearance: Normal appearance. He is normal weight. HENT: Head: Normocephalic and atraumatic. Right Ear: Tympanic membrane normal. Left Ear: Tympanic membrane normal. Nose: Nose normal. Mouth/Throat: Mouth: Mucous membranes are moist. Pharynx: Oropharynx is clear. Eyes: Extraocular Movements: Extraocular movements intact. Conjunctiva/sclera: Conjunctivae normal. Pupils: Pupils are equal, round, and reactive to light. Cardiovascular: Rate and Rhythm: Normal rate and regular rhythm. Pulses: Normal pulses. Heart sounds: Normal heart sounds. Pulmonary: Effort: Pulmonary effort is normal. Breath sounds: Normal breath sounds. Abdominal: General: Abdomen is flat. Musculoskeletal: General: Normal range of motion. Cervical back: Normal range of motion and neck supple. Skin: General: Skin is warm. Neurological: General: No focal deficit present. Mental Status: He is alert and oriented to person, place, and time. Mental status is at baseline. Last Recorded Vitals There were no vitals taken for this visit. Relevant Results Assessment/Plan Principal Problem: Atrial fibrillation (CMS/HCC) RFA/PVI procedure with general anesthesia I spent 20 minutes in the professional and overall care of this patient. Oksana Barraza MD documented in this encounter [facility] Work Phone: 12-12-2023 Hospital Discharge instructions Oksana Barraza MD - 12/12/2023 10:42 AM EST INSTRUCTIONS AFTER ABLATION PROCEDURE: * You will need to continue blood thinner (Xarelto) until instructed otherwise. It is important not to interrupt blood thinner for any reason (other than an emergency) during the first 30 days after ablation. Xarelto needs to be taken daily with a meal in order for the drug to be properly absorbed (eg do not take it on an empty stomach). * You will hold your home Omeprazole 20 mg now and start Pantoprazole 40 mg twice daily (a heartburn medicine) for the next 4 weeks to protect the esophagus as it can become irritated with ablation. It is very important that you take this medication. After the 4 weeks, you can resume your home Omeprazole as prescribed. * All other medications will generally remain the same unless you are told otherwise. Resume taking your home medications today (including blood thinner) as listed on the discharge instructions. * In the first week post-ablation you should take it easy. No heavy lifting or heavy exercise, no treadmill. You can use the stairs if needed but go slowly and minimize the number of times up and down. * Some minor bruising is common at each groin access site with minor soreness as if you had banged the area. Bruising may occasionally be seen to extend down the leg. This is normal as is an occasional small quarter sized bump in the area. If larger swelling or more significant pain occurs at the area, please contact the office or go the nearest Emergency Room. * You may have some minor chest pain for the next week or so. The pain will often worsen with a deep breath and be better when leaning forward. This is pericardial chest pain from the ablation and is generally not of concern. It should resolve within a week although it might increase for a day or so after the ablation. * If you develop unexplained fevers exceeding 100 degrees anytime within the first 3 weeks post-ablation, you need to contact the office. Low grade fevers of around 99 degrees are common in the first day or so post-ablation. * Atrial fibrillation (AFib) can recur in all patients who undergo this ablation for up to 4-8 weeks post-ablation. The ablation itself can cause inflammation (pericarditis) in the atria and this can cause AFib. Some patients will actually experience an increased amount of atrial arrhythmia early after ablation. Approximately 1/3 of patients will have this early recurrence of AFib. Medications should be continued and your heart rate controlled. Nothing else needs be done initially except waiting as in many cases these episodes of AFib will prove self limited. * Continue to follow up with your primary care physician, primary machine applicator cementer, and any other specialists you normally see. *No driving for 2 days post procedure (IF you were driving prior to procedure) *Diet: Heart healthy Call Provider If: Breathing faster than normal. Fever of 100.4 F (38 C) or higher. Chills. Any new concerning symptoms. Passing out. Patient Instructions, Next 24 hours: DO NOT drive a car, operate machinery or power tools. It is recommended that a responsible adult be with you for the first 24 hours. DO NOT drink any alcoholic drinks or take any non-prescriptive medications that contain alcohol for the first 24 hours. DO NOT make any important decisions for the first 24 hours. Activity: You are advised to go directly home from the hospital. DO NOT lift anything heavier than 10 pounds for one week, this allows for proper healing of the groin. No excessive exercise or treadmill use for one week. You may walk and do stairs, slowly. No sexual activities for 24 hours after you arrive home. Wound Care: If slight bleeding should occur at groin site, lie down and have someone apply firm pressure just above the puncture site for 5 minutes. If it continues or is profuse, call 911. Always notify your doctor if bleeding occurs. Keep site clean and dry. Let air dry or you may use a simple bandaid. Gently cleanse the puncture site in your groin with soap and water only. You may experience some tenderness, bruising or minimal inflammation. If you have any concerns, you may contact the EP Lab or if any of these symptoms become excessive, contact your litharge supervisor or go to the emergency room. No tub baths, soaking, hot tubs, or swimming for one week. May shower the next day after your procedure. Other Instructions: If you have any questions about the effects of the sedative drugs or groin care, call the physician who performed your procedure. FOLLOW UP: 1) Primary care physician 2 weeks--call to schedule 2) Janet Garrido CNP ( Electrophysiology) 1 month after ablation as scheduled documented in this encounter [facility] Work Phone: 12-11-2023 Hospital Note Formatting of t his note might be different from the original. [facility] Work Phone: 11-23-2023 Hospital Discharge instructions Patient Education 11/23/2023 11:33:19 Renal Mass Renal Mass A renal mass is an abnormal growth in the kidney. It may be found while performing an MRI, CT scan, or ultrasound to evaluate other problems of the abdomen. A renal mass that is cancerous (malignant) may grow or spread quickly. Others are not cancerous (benign). Renal masses include: Tumors. These may be malignant or benign. ?The most common type of kidney cancer in adults is renal cell carcinoma. In children, the most common type of kidney cancer is Wilms tumor. ?The most common benign tumors of the kidney include renal adenomas, oncocytomas, and angiomyolipoma (AML). Cysts. These are fluid-filled sacs that form on or in the kidney. What are the causes? Certain types of cancers, infections, or injuries can cause a renal mass. It is not always known what causes a cyst to develop in or on the kidney. What are the signs or symptoms? Often, a renal mass does not cause any signs or symptoms; most kidney cysts do not cause symptoms. How is this diagnosed? Your health care provider may recommend tests to diagnose the cause of your renal mass. These tests may be done if a renal mass is found: Physical exam. Blood tests. Urine tests. Imaging tests, such as ultrasound, CT scan, or MRI. Biopsy. This is a small sample that is removed from the renal mass and tested in a lab. The exact tests and how often they are done will depend on: The size and appearance of the renal mass. Risk factors or medical conditions that increase your risk for problems. Any symptoms associated with the renal mass, or concerns that you have about it. Tests and physical exams may be done once, or they may be done regularly for a period of time. Tests and exams that are done regularly will help monitor whether the mass is growing and beginning to cause problems. How is this treated? Treatment is not always needed for this condition. Your health care provider may recommend careful monitoring and regular tests and exams. Treatment will depend on the cause of the mass. Treatment for a cancerous renal mass may include surgical removal, chemotherapy, radiation, or immunotherapy. Most kidney cysts do not need to be treated. Follow these instructions at home: What you need to do at home will depend on the cause of the mass. Follow the instructions that your health care provider gives to you. In general: Take bnkz-ulm-[id number] and prescription medicines only as told by your health care provider. If you were prescribed an antibiotic medicine, take it as told by your health care provider. Do not stop taking the antibiotic even if you start to feel better. Follow any restrictions that are given to you by your health care provider. Keep all follow-up visits. This is important. ?You may need to see your health care provider once or twice a year to have CT scans and ultrasounds. These tests will show if your renal mass has changed or grown. Contact a health care provider if you: Have pain in your side or back (flank pain). Have a fever. Feel full soon after eating. Have pain or swelling in the abdomen. Lose weight. Get help right away if: Your pain gets worse. There is blood in your urine. You cannot urinate. You have chest pain. You have trouble breathing. These symptoms may represent a serious problem that is an emergency. Do not wait to see if the symptoms will go away. Get medical help right away. Call your local emergency services (911 in the [place] Summary A renal mass is an abnormal growth in the kidney. It may be cancerous (malignant) and grow or spread quickly, or it may not be cancerous (benign). Renal masses often do not have any signs or symptoms. Renal masses may be found while performing an MRI, CT scan, or ultrasound for other problems of the abdomen. Your health care provider may recommend that you have tests to diagnose the cause of your renal mass. These may include a physical exam, blood tests, urine tests, imaging, or a biopsy. Treatment is not always needed for this condition. Careful monitoring may be recommended. This information is not intended to replace advice given to you by your health care provider. Make sure you discuss any questions you have with your health care provider. Document Revised: 05/02/2021 Document Reviewed: 05/02/2021 [employer] Patient Education 2022 [employer]. Follow Up Care 10/16/2022 16:34:33 With:NICOLE HERNANDEZ, Rommel Frias, URL Address: [facility] [place] [id number]- When: Unknown [facility] 08-10-2023 Discharge summary Note Date/Time August 10, 2023 9:33am [facility] [address] [place] [id number] Discharge Summary Signed Patient: Philippe Ray MR#: [id number] : 1960 Acct:[id number] Age/Sex: 63 / M Adm Date: 3 Loc: Room: Attending Dr: Mare Hughes MD Copies to: DO Mare Rosales MD, [facility]~ Providers Date of Discharge: 08/10/23 Discharging Provider: Mare Hughes Primary Care Provider: Clark Sadler Discharge Diagnosis Final Diagnosis Final Discharge Diagnosis: Successful cardioversion from atrial fibrillation to sinus rhythm Summary Hospital Course Hospital course: Outpatient procedure Time Spent with Patient Time spent providing/coordinating discharge services (# min): 20 Diagnostic Studies Completed and Pending Studies Pending studies at discharge: 08/10/23 08:02 ECG 12 lead ECG Stat Labs on day of discharge: 08/10/23 08:00: Sodium 141, Potassium 3.6, Chloride 105, Carbon Dioxide 30.9, Anion Gap 8.7 Exam Physical Exam Vital Signs: O2 Del Method Room Air 08/10/23 08:21 Discharge Plan Discharge Plan Patient Disposition: Home Diet: Low-Sodium and Low-Cholesterol Prescriptions: Continued amlodipine [Norvasc] 10 mg Tablet 10 mg PO DAILY flecainide 50 mg Tablet 50 mg PO Q12H omeprazole 20 mg Capsule,Delayed Release(Dr/Ec) 40 mg PO DAILY metoprolol succinate 25 mg Tablet Extended Release 24 Hr 25 mg PO DAILY hydrochlorothiazide 12.5 mg Tablet 12.5 mg PO DAILY Xarelto 20 mg Tablet 20 mg PO DAILY Rx Instructions: must administer with evening meal Documented By: Mare Hughes MD, [facility] 3 [phone] Signed By: <Electronically signed by MD JESUS MANUEL Hughes> 08/10/23932 [facility] Work Phone: 1(430) 560-526109-22-2023 Procedure [facility]11-28-2022 Hospital Discharge instructions Patient Education 10/16/2022 08:55:40 Dietary Guidelines to Help Prevent Kidney Stones Dietary Guidelines to Help Prevent Kidney Stones Kidney stones are deposits of minerals and salts that form inside your kidneys. Your risk of developing kidney stones may be greater depending on your diet, your lifestyle, the medicines you take, and whether you have certain medical conditions. Most people can reduce their chances of developing kidney stones by following the instructions below. Depending on your overall health and the type of kidney stones you tend to develop, your dietitian may give you more specific instructions. What are tips for following this plan? Reading food labels Choose foods with no salt added or low-salt labels. Limit your sodium intake to less than 1500 mg per day. Choose foods with calcium for each meal and snack. Try to eat about 300 mg of calcium at each meal.Foods that contain 200 500 mg of calcium per serving include: ?8 oz (237 ml) of milk, fortified nondairy milk, and fortified fruit juice. ?8 oz (237 ml) of kefir, yogurt, and soy yogurt. ?4 oz (118 ml) of tofu. ?1 oz of cheese. ?1 cup (300 g) of dried figs. ?1 cup (91 g) of cooked broccoli. ?1 3 oz can of sardines or mackerel. Most people need 1000 to 1500 mg of calcium each day. Talk to your dietitian about how much calciumis recommended for you. Shopping Buy plenty of fresh fruits and vegetables. Most people do not need to avoid fruits and vegetables, even if they contain nutrients that may contribute to kidney stones. When shopping for convenience foods, choose: ?Whole pieces of fruit. ?Premade salads with dressing on the side. ?Low-fat fruit and yogurt smoothies. Avoid buying frozen meals or prepared deli foods. Look for foods with live cultures, such as yogurt and kefir. Cooking Do not add salt to food when cooking. Place a salt shaker on the table and allow each person to addhis or her own salt to taste. Use vegetable protein, such as beans, textured vegetable protein (TVP), or tofu instead of meat in pasta, casseroles, and soups. Meal planning Eat less salt, if told by your dietitian. To do this: ?Avoid eating processed or premade food. ?Avoid eating fast food. Eat less animal protein, including cheese, meat, poultry, or fish, if told by your dietitian. To dothis: ?Limit the number of times you have meat, poultry, fish, or cheese each week. Eat a diet free of meat at least 2 days a week. ?Eat only one serving each day of meat, poultry, fish, or seafood. ?When you prepare animal protein, cut pieces into small portion sizes. For most meat and fish, one serving is about the size of one deck of cards. Eat at least 5 servings of fresh fruits and vegetables each day. To do this: ?Keep fruits and vegetables on hand for snacks. ?Eat 1 piece of fruit or a handful of berries with breakfast. ?Have a salad and fruit at lunch. ?Have two kinds of vegetables at dinner. Limit foods that are high in a substance called oxalate. These include: ?Spinach. ?Rhubarb. ?Beets. ?Potato chips and kiswahili fries. ?Nuts. If you regularly take a diuretic medicine, make sure to eat at least 1 2 fruits or vegetables high in potassium each day. These include: ?Avocado. ?Banana. ?[place], prune, carrot, or tomato juice. ?Baked potato. ?Cabbage. ?Beans and split peas. General instructions Drink enough fluid to keep your urine clear or pale yellow. This is the most important thing you can do. Talk to your health care provider and dietitian about taking daily supplements. Depending on your health and the cause of your kidney stones, you may be advised: ?Not to take supplements with vitamin C. ?To take a calcium supplement. ?To take a daily probiotic supplement. ?To take other supplements such as magnesium, fish oil, or vitamin B6. Take all medicines and supplements as told by your health care provider. Limit alcohol intake to no more than 1 drink a day for non women and 2 drinks a day for men. One drink equals 12 oz of beer, 5 oz of wine, or 1 oz of hard liquor. Lose weight if told by your health care provider. Work with your dietitian to find strategies and an eating plan that works best for you. What foods are not recommended? Limit your intake of the following foods, or as told by your dietitian. Talk to your dietitian about specific foods you should avoid based on the type of kidney stones and your overall health. Grains Breads. Bagels. Rolls. Baked goods. Salted crackers. Cereal. Pasta. Vegetables Spinach. Rhubarb. Beets. Canned vegetables. Pickles. Olives. Meats and other protein foods Nuts. Nut butters. Large portions of meat, poultry, or fish. Salted or cured meats. Deli meats. Hotdogs. Sausages. Dairy Cheese. Beverages Regular soft drinks. Regular vegetable juice. Seasonings and other foods Seasoning blends with salt. Salad dressings. Canned soups. Soy sauce. Ketchup. Barbecue sauce. Canned pasta sauce. Casseroles. Pizza. Lasagna. Frozen meals. Potato chips. Portuguese fries. Summary You can reduce your risk of kidney stones by making changes to your diet. The most important thing you can do is drink enough fluid. You should drink enough fluid to keep your urine clear or pale yellow. Ask your health care provider or dietitian how much protein from animal sources you should eat eachday, and also how much salt and calcium you should have each day. This information is not intended to replace advice given to you by your health care provider. Make sure you discuss any questions you have with your health care provider. Document Released: 03/01/2012 Document Revised: 02/25/2020 Document Reviewed: 10/16/2017 [employer] Patient Education 2020 [employer]. Follow Up Care 09/20/2022 13:40:09 With:NICOLE HERNANDEZ, Rommle Frias, URL Address: [facility] [address] [place] [address]- When: Unknown [facility] 09-21-2022 Hospital Discharge instructions Patient Education 08/09/2022 15:29:42 Balanitis Balanitis Balanitis is swelling and irritation (inflammation) of the head of the penis (glans penis). The condition may also cause inflammation of the skin around the glans penis (foreskin) in men who have notbeen circumcised. It may develop because of an infection or another medical condition. Balanitis occurs most often among men who have not had their foreskin removed (uncircumcised men). Balanitis sometimes causes scarring of the penis or foreskin, which can require surgery. Untreated balanitis can increase the risk of penile cancer. What are the causes? Common causes of this condition include: Poor personal hygiene, especially in uncircumcised men. Not cleaning the glans penis and foreskin well can result in buildup of bacteria, viruses, and yeast, which can lead to infection and inflammation. Irritation and lack of air flow due to fluid (smegma) that can build up on the glans penis. Other causes include: Chemical irritation from products such as soaps or shower gels (especially those that have fragrance), condoms, personal lubricants, petroleum jelly, spermicides, or fabric softeners. Skin conditions, such as eczema, dermatitis, and psoriasis. Allergies to medicines, such as tetracycline and sulfa drugs. Certain medical conditions, including liver cirrhosis, congestive heart failure, diabetes, and kidney disease. Infections, such as candidiasis, HPV (human papillomavirus), herpes simplex, gonorrhea, and syphilis. Severe obesity. What increases the risk? The following factors may make you more likely to develop this condition: Having diabetes. This is the most common risk factor. Having a tight foreskin that is difficult to pull back (retract) past the glans. Having sexual intercourse without using a condom. What are the signs or symptoms? Symptoms of this condition include: Discharge from under the foreskin. A bad smell. Pain or difficulty retracting the foreskin. Tenderness, redness, and swelling of the glans. A rash or sores on the glans or foreskin. Itchiness. Inability to get an erection due to pain. Difficulty urinating. Scarring of the penis or foreskin, in some cases. How is this diagnosed? This condition may be diagnosed based on: A physical exam. Testing a swab of discharge to check for bacterial or fungal infection. Blood tests: ?To check for viruses that can cause balanitis. ?To check your blood sugar (glucose) level. High blood glucose could be a sign of diabetes, which can cause balanitis. How is this treated? Treatment for balanitis depends on the cause. Treatment may include: Improving personal hygiene. Your health care provider may recommend sitting in a bath of warm waterthat is deep enough to cover your hips and buttocks (sitz bath). Medicines such as: ?Creams or ointments to reduce swelling (steroids) or to treat an infection. ?Antibiotic medicine. ?Antifungal medicine. Surgery to remove or cut the foreskin (circumcision). This may be done if you have scarring on the foreskin that makes it difficult to retract. Controlling other medical problems that may be causing your condition or making it worse. Follow these instructions at home: Do not have sex until the condition clears up, or until your health care provider approves. Keep your penis clean and dry. Take sitz baths as recommended by your health care provider. Avoid products that irritate your skin or make symptoms worse, such as soaps and shower gels that have fragrance. Take [id number] and prescription medicines only as told by your health care provider. ?If you were prescribed an antibiotic medicine or a cream or ointment, use it as told by your health care provider. Do not stop using your medicine, cream, or ointment even if you start to feel better. ?Do not drive or use heavy machinery while taking prescription pain medicine. Contact a health care provider if: Your symptoms get worse or do not improve with home care. You develop chills or a fever. You have trouble urinating. You cannot retract your foreskin. Get help right away if: You develop severe pain. You are unable to urinate. Summary Balanitis is inflammation of the head of the penis (glans penis) caused by irritation or infection. Balanitis causes pain, redness, and swelling of the glans penis. This condition is most common among uncircumcised men who do not keep their glans penis clean and in men who have diabetes. Treatment may include creams or ointments. Good hygiene is important for prevention. This includes pulling back the foreskin when washing yourpenis. This information is not intended to replace advice given to you by your health care provider. Make sure you discuss any questions you have with your health care provider. Document Released: 03/24/2010 Document Revised: 10/18/2018 Document Reviewed: 09/24/2017 [employer] Patient Education 2020 [employer]. Follow Up Care 08/09/2022 13:26:38 With:Cortney Booker Address: [address] [place] [address], [address] Business ([address]) When:08/12/2022 15:28:26 Comments:Call the office of your primary care doctor to arrange for follow-up within the above-stated timeframe. Follow-up with your primary care doctor about this ED visit. You should review your labs, imaging, and diagnoses from this ED visit with your primary care physician. If you were prescribed medications you should discuss possible side-effects and drug interactions with your pharmacist. Call 911 or go to the nearest Emergency Department if you develop any new or worsening symptoms.Seek immediate medical attention if you develop: worsening chest pain, new chest pain, nausea, vomiting, weakness, numbness, tingling, excessive sweating, shortness of breath, difficulty breathing, loss of motion in your arms or legs, or any new or worsening symptoms.Apply prescribed creams to the foreskin for the next week. [facility]09-21-2022 Evaluation + Plan noteExtracted from: Title:ED Note Author:Jovani Edwards DO Date: Overexertion (X50.9XXA: Othe r and unspecified overexertion or strenuous movements or postures, initial encounter) Penile swelling (N48.89: Other specified disorders of penis) Orders: clotrimazole topical, 1 kleber, Topical, BID, 12 gram, Refill(s) 0, [id number], 182, cm, 08/09/22 13:31:00 EDT, Height/Length Dosing, 89, kg, 08/09/22 13:31:00 EDT, Weight Dosing hydrocortisone topical, 1 kleber, Topical, BID, 14 gram, Refill(s) 0, [id number], 182, cm, 08/09/22 13:31:00 EDT, Height/Length Dosing, 89, kg, 08/09/22 13:31:00 EDT, Weight Dosing Automated Diff Basic Metabolic Panel CBC w/ Auto Diff ECG 12 Lead Adult ED Cardiac Monitoring eGFR PT & PTT Saline Lock Insert Troponin 0 Hr. UA With Cult Reflex Future Scheduled Tests Radiology* XR Abdomen 1 View 12/08/21 [facility]03-24-2022 NoteHNO ID: [id number] Author: Phil Kan MD Service: ? Author Type: Physician Type: Progress Notes Filed: 02/13/2022 12:43 PM Note Text: REASON FOR VISIT: Follow up for renal mass HPI: 61 year old male with history of right renal mass who presents for follow-up. Doing well post op. Denies issues urinating. Has a good appetite, denies nausea or vomiting. 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 Kidney, right lateral, biopsy: - Renal parenchyma, negative for neoplasm. B. Kidney, right medial, biopsy: - Renal parenchyma with focal eosinophilic tubules. C. Kidney, right inferior, biopsy: - Renal parenchyma, negative for neoplasm. D. Kidney, right, partial nephrectomy: - Low-grade oncocytic tumor - see Comment. - 4.0 cm greatest dimension. - No definite involvement of parenchymal margin. - Small angiomyolipoma within the tumor, 2 mm. LABS: Creatinine Date Value Ref Range Status 01/27/2022 0.88 0.73 - 1.22 mg/dL Final 01/26/2022 0.96 0.73 - 1.22 mg/dL Final 01/25/2022 0.85 0.73 - 1.22 mg/dL Final 01/23/2022 0.66 (L) 0.73 - 1.22 mg/dL Final No results found for: PSA URINALYSIS: Specific [place], Ur Date Value Ref Range Status 02/09/2022 1.011 1.005 - 1.030 Final Glucose, Urine Date Value Ref Range Status 02/09/2022 Negative Negative Final Bilirubin, Urine Date Value Ref Range Status 02/09/2022 Negative Negative Final Ketones, Urine Date Value Ref Range Status 02/09/2022 Negative Negative Final Hemoglobin/Blood,Ur Date Value Ref Range Status 02/09/2022 3+ (A) Negative Final Protein, Urine Date Value Ref Range Status 02/09/2022 Negative Negative Final Nitrites Date Value Ref Range Status 02/09/2022 Negative Negative Final WBC, Urine Date Value Ref Range Status 02/09/2022 0-5 /HPF 0-5 /HPF Final IMAGING: None ALLERGIES: ALLERGIES No Known Allergies MEDICATIONS: Current Outpatient Medications Medication Sig - aspirin 81 mg cap Take by mouth. - amLODIPine (NORVASC) 10 mg tablet Take 10 mg by mouth once daily. - hydroCHLOROthiazide (HYDRODIURIL, ESIDRIX) 12.5 mg tablet Take 12.5 mg by mouth once daily. - omeprazole (PRILOSEC) 20 mg capsule Take 20 mg by mouth once daily. - docusate sodium (COLACE) 100 mg capsule Take 1 capsule by mouth twice daily. (Patient not taking: Reported on 02/09/2022 ) No current facility-administered medications for this visit. HISTORIES PAST MEDICAL HISTORY Diagnosis Date - Atrial fibrillation (HCC) 01/23/2022 - GERD (gastroesophageal reflux disease) 01/23/2022 - HTN (hypertension) 01/23/2022 PAST SURGICAL HISTORY Procedure Laterality Date - PAST SURGICAL HISTORY OF Kidney stone - PAST SURGICAL HISTORY OF Ganglion cyst - PAST SURGICAL HISTORY OF Deviated septum - PAST SURGICAL HISTORY OF Bilateral Hip replacement - PAST SURGICAL HISTORY OF Vasectomy - TONSILLECTOMY HX Social History Tobacco Use - Smoking status: Never Smoker - Smokeless tobacco: Never Used Substance Use Topics - Alcohol use: Yes Alcohol/week: 2.0 standard drinks Types: 2 Cans of Beer (12oz) per week Comment: 2-3 drinks per week - Drug use: Never FAMILY HISTORY Problem Relation Age of Onset - Anesthesia Problems No Family History REVIEW OF SYSTEMS General: No weight loss, malaise or fevers. Genitourinary: No history of dysuria, frequency or incontinence The remainder of the ROS was reviewed and negative. PHYSICAL EXAMINATION There were no vitals taken for this visit. Constitutional: Well appearing, alert, in no acute distress and well-hydrated, well nourished Skin: Skin color, texture, turgor normal, no suspicious rashes or lesions Eyes: Normocephalic, no masses, lesions, tenderness or abnormalities Neuro: Supple, no adenopathy; thyroid symmetric, normal size, no bruits Respiratory: no wheezing or rhonchi Cardiovascular: RRR without murmur, gallop, or rubs. No ectopy, Not examined Gastrointestinal: Normal abdominal exam. Lap sites present, clean, dry and intact Musculoskeletal: Extremities normal. No deformities, edema, or skin discoloration. Good capillary refill. IMPRESSION: This is a 61 year old male with history of right renal mass s/p robotic partial nephrectomy with no evidence of disease . PLAN: Follow up in [address] kidney, Chest xray, CBC and BMP Soo Randle APRN.TRAINING ADMINISTRATOR I have personally s (more content not included)...[facility] 02-09-2022 History of Present illness Narrative* Phil Kan MD - 02/09/2022 2:45 PM EDT REASON FOR VISIT: Follow up for renal mass HPI: 61 year old male with history of right renal mass who presents for follow-up. Doing well post op. Denies issues urinating. Has a good appetite, denies nausea or vomiting. 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 Kidney, right lateral, biopsy: - Renal parenchyma, negative for neoplasm. B. Kidney, right medial, biopsy: - Renal parenchyma with focal eosinophilic tubules. C. Kidney, right inferior, biopsy: - Renal parenchyma, negative for neoplasm. D. Kidney, right, partial nephrectomy: - Low-grade oncocytic tumor - see Comment. - 4.0 cm greatest dimension. - No definite involvement of parenchymal margin. - Small angiomyolipoma within the tumor, 2 mm. LABS: Creatinine Date Value Ref Range Status 01/27/2022 0.88 0.73 - 1.22 mg/dL Final 01/26/2022 0.96 0.73 - 1.22 mg/dL Final 01/25/2022 0.85 0.73 - 1.22 mg/dL Final 01/23/2022 0.66 (L) 0.73 - 1.22 mg/dL Final No results found for: PSA URINALYSIS: Specific [place], Ur Date Value Ref Range Status 02/09/2022 1.011 1.005 - 1.030 Final Glucose, Urine Date Value Ref Range Status 02/09/2022 Negative Negative Final Bilirubin, Urine Date Value Ref Range Status 02/09/2022 Negative Negative Final Ketones, Urine Date Value Ref Range Status 02/09/2022 Negative Negative Final Hemoglobin/Blood,Ur Date Value Ref Range Status 02/09/2022 3+ (A) Negative Final Protein, Urine Date Value Ref Range Status 02/09/2022 Negative Negative Final Nitrites Date Value Ref Range Status 02/09/2022 Negative Negative Final WBC, Urine Date Value Ref Range Status 02/09/2022 0-5 /HPF 0-5 /HPF Final IMAGING: None ALLERGIES: ALLERGIES No Known Allergies MEDICATIONS: Current Outpatient Medications Medication Sig aspirin 81 mg cap Take by mouth. amLODIPine (NORVASC) 10 mg tablet Take 10 mg by mouth once daily. hydroCHLOROthiazide (HYDRODIURIL, ESIDRIX) 12.5 mg tablet Take 12.5 mg by mouth once daily. omeprazole (PRILOSEC) 20 mg capsule Take 20 mg by mouth once daily. docusate sodium (COLACE) 100 mg capsule Take 1 capsule by mouth twice daily. (Patient not taking: Reported on 02/09/2022 ) No current facility-administered medications for this visit. HISTORIES PAST MEDICAL HISTORY Diagnosis Date Atrial fibrillation (HCC) 01/23/2022 GERD (gastroesophageal reflux disease) 01/23/2022 HTN (hypertension) 01/23/2022 PAST SURGICAL HISTORY Procedure Laterality Date PAST SURGICAL HISTORY OF Kidney stone PAST SURGICAL HISTORY OF Ganglion cyst PAST SURGICAL HISTORY OF Deviated septum PAST SURGICAL HISTORY OF Bilateral Hip replacement PAST SURGICAL HISTORY OF Vasectomy TONSILLECTOMY HX Social History Tobacco Use Smoking status: Never Smoker Smokeless tobacco: Never Used Substance Use Topics Alcohol use: Yes Alcohol/week: 2.0 standard drinks Types: 2 Cans of Beer (12oz) per week Comment: 2-3 drinks per week Drug use: Never FAMILY HISTORY Problem Relation Age of Onset Anesthesia Problems No Family History REVIEW OF SYSTEMS General: No weight loss, malaise or fevers. Genitourinary: No history of dysuria, frequency or incontinence The remainder of the ROS was reviewed and negative. PHYSICAL EXAMINATION There were no vitals taken for this visit. Constitutional: Well appearing, alert, in no acute distress and well-hydrated, well nourished Skin: Skin color, texture, turgor normal, no suspicious rashes or lesions Eyes: Normocephalic, no masses, lesions, tenderness or abnormalities Neuro: Supple, no adenopathy; thyroid symmetric, normal size, no bruits Respiratory: no wheezing or rhonchi Cardiovascular: RRR without murmur, gallop, or rubs. No ectopy, Not examined Gastrointestinal: Normal abdominal exam. Lap sites present, clean, dry and intact Musculoskeletal: Extremities normal. No deformities, edema, or skin discoloration. Good capillary refill. IMPRESSION: This is a 61 year old male with history of right renal mass s/p robotic partial nephrectomy with no evidence of disease . PLAN: Follow up in [address] kidney, Chest xray, CBC and BMP Soo Randle APRN.TRAINING ADMINISTRATOR I have personally seen and examined the patient. I have reviewed the nurse practitioner's documentation and verified the findings in the note as written. doing well. Phil Kan MD, MS Urologic Oncology Staff [facility] [place] [facility] documented in this encounterFairfield [facility] Center03-[facility]22 NotePatient Outreach (UROLMN) PHILIPPE RAY ([id number]) 1960 M Date Time Provider Department 02/09/22 NI, GUEROAKHIL DELGADO During your visit today, we recorded the following information about you: Allergies As of Date: 02/09/2022 (No Known Allergies) Date Reviewed: 02/09/2022 Reviewed by: TAE Bowens - Fully Assessed Visit Diagnosis:Screening for genitourinary condition [Z13.89] Order(s):URINALYSIS, REFLEX MICROSCOPIC [[id number]] Order #: [id number]. #:[id number] Prescriptions as of 02/13/2022 - docusate sodium (COLACE) 100 mg capsule Take 1 capsule by mouth twice daily. - aspirin 81 mg cap Take by mouth. - amLODIPine (NORVASC) 10 mg tablet Take 10 mg by mouth once daily. - hydroCHLOROthiazide (HYDRODIURIL, ESIDRIX) 12.5 mg tablet Take 12.5 mg by mouth once daily. - omeprazole (PRILOSEC) 20 mg capsule Take 20 mg by mouth once daily. Problem List As Of Date 02/09/2022 Noted Resolved HTN (hypertension) [I10] 01/23/2022 Atrial fibrillation (HCC) [I48.91] 01/23/2022 GERD (gastroesophageal reflux disease) [K21.9] 01/23/2022 Right renal mass [N28.89] 01/25/2022 Encounter Status:Closed by [employer] on 02/13/22[facility] 01-27-2022 NoteHNO ID: [id number] Author: Jeffry Suarez MD Service: Urology Author Type: Resident Type: Progress Notes Filed: 01/27/2022 7:07 AM Note Text: [facility] UROLOGY PROGRESS NOTE Name: Philippe Ray Bed: H060 [id number]/[id number] Date: 01/27/2022 After Hours [facility] Service Pager: [phone] ASSESSMENT AND PLAN 61 year old male POD#2 S/P?ROBOTIC LAPAROSCOPIC NEPHRECTOMY PARTIAL.Right side ? ? Interval:Doing fine, Pain controlled, No N/V Wound C/D/I Johnson removed yesterday Drain in place with 25 cc out put although has been dome leakage around it passing gas yet Walking Hb 11.7 --> 10.9 ? Diet - GIS diet Activity - OOB to chair and Ambulate with assistance DVT prophylaxis - Heparin SQ and PAS Stockings on Antibiotics - Perioperative antibiotics - Ancef Will remove the drain Discharge planning - Continue care on RNF, Home later today ? Active Problems Anemia: Acute - Operative blood loss - No Acute intervention indicated for now Renal Neoplasm: Suspected malignancy, Pathology Pending - Right renal mass Objective Vital Signs BP 141/85 Pulse 76 Temp 36.9 ?C (98.4 ?F) (Oral) Resp 17 Ht 182.9 cm (6') Wt 90.7 kg (199 lb 14.4 oz) SpO2 95% BMI 27.11 kg/m? Body mass index is 27.11 kg/m?. Input and Output Intake/Output Summary (Last 24 hours) at 01/27/2022 0603 Last data filed at 01/27/2022 0027 Gross per 24 hour Intake 460 ml Output 1475 ml Net -1015 ml Urine output 1.5 L Drains 25 cc Physical Exam General: Well-appearing, no acute distress CV: RRR, no m/g/r Lungs: Clear to auscultation bilaterally Abdomen: Soft, non-tender, non-distended, +BS Wound: Incision clean, dry, and intact : Urine clear Extremities: Normal. No cyanosis, clubbing, or edema Recent Labs 01/27/22 0044 01/26/22 1528 01/25/22 1806 WBC 8.06 12.57* 12.10* HB 10.9* 11.7* 13.2 HCT 34.1* 34.8* 39.8 PLT 251 305 268 NA 139 137 139 K 3.8 3.8 4.0 CHLOR 104 100 103 CO2 27 27 26 BUN 15 15 14 CREAT 0.88 0.96 0.85 GLUC 102* 96 138* Imaging None Jeffry Suarez MD Personal Pager: [phone] For weekend or after hours issues please page the on-call urology pager at [phone] [facility] NoteHNO ID: [id number] Author: MADELINE Mcmahon Service: Care Management Author Type: Seismology Technical Officer Type: Care Mgt Initial Assessment Filed: 01/26/2022 10:15 AM Note Text: CARE MANAGEMENT: ASSESSMENT AND DISCHARGE PLAN SERVICE DATE: January 26, 2022 SERVICE TIME: 10:11 AM PRIMARY CARE PHYSICIAN: No primary care provider on file. Phone: None ADMISSION STATUS: Inpatient Needs Prior to Discharge: To Be Determined MEDICAL: [facility] CHOICE PLUS Patient/Assistant Account Executive Stated Goals: To have reduction in symptoms;To improve my functional status;To return home to life as it was;To be cured/healed Health Insurance: [employer] [facility] [place] [facility] Last Discharge Date: N/A Is this Within the Past 30 days? Last discharge within 30 days: No Advance Directive: Current Advance Directive: Health Care Power of Blue Print Control Clerk In Chart: No Health LiteracyHow often do you need to have someone help you when you read instructions, pamphlets, or other written material from your doctor or pharmacy? : 1 - Never How confident are you filling out medical forms by yourself?: 1 - Extremely If Patient scores > 3 on either question, the following interventions were put into place:: Patient did not score > 3 on either question. Baseline Mental Status Prior to this Illness what was the patient's Baseline Mental Status?: Alert AND Oriented Prior to this illness, has anyone described the patient having any of the following behaviors?: Not Applicable Relationship of the informant to the patient:: Self Functional Status: Independent Does Patient Currently Receive Any Community Services or Home Care?: None Equipment Prior to Admission: None Has the Patient Been in a Fpc Facility in the Past 30 days?: No SOCIAL: Living Arrangements: Home Lives With: Spouse Financial Resources: Employed Primary Contact: Extended Emergency Contact Information Primary Emergency Contact: Reji Ray Relation: Spouse Supportive Patient Contact:: Yes Contact Resources: Family Family Name/Phone: Reji Ray [phone] Caregiver AssessmentCaregiver is ready, willing and able to meet the patient's needs as recommended by the inter-professional team:: Yes Does the patient have an acute stroke diagnosis, or has the patient had a stroke during this admission?: No Patient's transition needs and plan for meeting these needs: Pt is aware of admission and is in agreement Patient's perception of need for this admission: Pt is aware of admission and is in agreement Medication Adherance I am convinced of the importance of my prescription medication: 0 - Agree Completely I worry that my prescription medication will do more harm than good to me : 0 - Disagree Completely I feel financially burdened by my [id number] expenses for my prescription medication:: 0 - Disagree Completely Risk Score: 0 Patient is categorized as: Low risk < 2 Are you interested in bedside delivery of your medications? No Is Patient Psychosocially Complex?: No ASSESSMENT AND PLAN: Medical Needs: Medical Needs: Two or more chronic diseases Psychosocial Needs: Psychosocial Needs: None FREEDOM OF CHOICE EXPLAINED: [place] of Choice Given: No Reason Not Given: No placements necessary POTENTIAL TRANSITION PLANS Home Pt is a 61 Y/M who presented to the hospital on 01/25/2022 for scheduled surgery. Pt is POD #1 s/p right robotic partial nephrectomy. Pt is currently medically stable. SW met with patient at bedside to discuss possible discharge needs. Patient was alert and oriented and engaged with questioning. Pt came to the hospital from home where he lives with his spouse Reji Ray ([phone]) and was independent with ADL's prior to admission. Per AM team sign out, D/C date for Pt TBD at this time. No PT/OT consulted for Pt at this time. Anticipated Pt will be able to be D/C back to home with no skilled needs once medically ready for D/C. Plan for Pt to be transported home via family auto. CM will follow up if needed. SIGNATURE: Jayne MIRELES, RAIL CAR REPAIRMAN PATIENT NAME: Philippe Ray DATE: January 26, 2022 TIME: 10:11 AM PAGER/CONTACT #: [facility] 01-26-2022 NoteHNO ID: [id number] Author: Jeffry Suarez MD Service: Urology Author Type: Resident Type: Progress Notes Filed: 01/26/2022 6:48 AM Note Text: [facility] UROLOGY PROGRESS NOTE Name: Philippe Ray Bed: H060 009/H060-10 Date: 01/26/2022 After Hours [facility] Service Pager: [phone] ASSESSMENT AND PLAN 61 year old male POD#1 S/P ROBOTIC LAPAROSCOPIC NEPHRECTOMY PARTIAL.Right side Interval:Doing fine, Pain controlled, No N/V Wound C/D/I Johnson in place with Clear urine Drain in place with 280 cc out put Not passing gas yet No out of bed yet Diet - Advance diet with flatus and Clear liquid diet Activity - OOB to chair and Ambulate with assistance DVT prophylaxis - Heparin SQ and PAS Stockings on Antibiotics - Perioperative antibiotics - Ancef Discharge planning - Continue care on RNF Active Problems Anemia: Acute - Operative blood loss - No Acute intervention indicated for now Renal Neoplasm: Suspected malignancy, Pathology Pending - Right renal mass Objective Vital Signs BP 107/64 Pulse 60 Temp 36.7 ?C (98.1 ?F) (Oral) Resp 18 Ht 182.9 cm (6') Wt 90.7 kg (199 lb 14.4 oz) SpO2 95% BMI 27.11 kg/m? Body mass index is 27.11 kg/m?. Input and Output Intake/Output Summary (Last 24 hours) at 01/26/2022 0608 Last data filed at 01/26/2022 0600 Gross per 24 hour Intake 5390 ml Output 1650 ml Net 3740 ml Urine output 1.2 L Drains 280 cc Physical Exam General: Well-appearing, no acute distress CV: RRR, no m/g/r Lungs: Clear to auscultation bilaterally Abdomen: Soft, non-tender, non-distended, +BS Wound: Incision clean, dry, and intact : Johnson catheter present Extremities: Normal. No cyanosis, clubbing, or edema Recent Labs 01/25/22 1806 01/23/22 1117 WBC 12.10* 7.69 HB 13.2 13.4 HCT 39.8 41.5 PLT 268 305 NA 139 140 K 4.0 3.6* CHLOR 103 103 CO2 26 27 BUN 14 15 CREAT 0.85 0.66* GLUC 138* 102* Imaging None Jeffry Suarez MD Personal Pager: [phone] For weekend or after hours issues please page the [place]-call urology [place]ager at [phone] Hospital [facility]03-10-2022 NoteHNO ID: [id number] Author: Deanna Mejia MD Service: Urology Author Type: Resident Type: Progress Notes Filed: 01/26/2022 1:09 AM Note Text: POST OPERATIVE CHECK NOTE Name: Philippe Ray S: Patient doing well. Pain well-controlled. Denies fevers, chills, chest pain, shortness of breath, nausea, vomiting. O: BP 109/62 Pulse 73 Temp 36.8 ?C (98.2 ?F) (Oral) Resp 18 Ht 182.9 cm (6') Wt 90.7 kg (199 lb 14.4 oz) SpO2 95% BMI 27.11 kg/m? Temp (24hrs), Av.7 ?C (98.1 ?F), Min:36.2 ?C (97.2 ?F), Max:37.1 ?C (98.8 ?F) Intake/Output Summary (Last 24 hours) at 01/26/2022 0108 Last data filed at 01/25/2022 2300 Gross per 24 hour Intake 4890 ml Output 860 ml Net 4030 ml General - NAD, AOx3 Pulmonary - non-labored breathing on RA CV - Reg rate, WWP, hemodynamically stable Abdomen - soft, appropriately tender, nondistended, JANICE bloody - Johnson draining light pink urine Wound - lap incisions without erythema or drainage A/P: 61 year old male POD#0 S/P ROBOTIC LAPAROSCOPIC NEPHRECTOMY PARTIAL: 43966 (CPT?). Hemodynamically stable, No immediate post operative complications. -Pain control -IVF@100 -Johnson to gravity -JANICE to bulb suction -CLD -SQH ppx Deanna Mejia MD Urology Resident PGY-2 Pager: [phone] For weekend or after hours issues please page the on-call urology pager at [phone] Hospital [facility]03-09-2022 NoteHNO ID: [id number] Author: Radha Bardales RN Service: ? Author Type: Registered Nurse Type: Progress Notes Filed: 01/25/2022 9:26 PM Note Text: Admission/Transfer Note PATIENT NAME: Philippe Ray Patient transferred from PACU via bed in stable condition. Actions taken: Patient oriented to room, call light function and prescribed activities. This note was completed by: Radha BardalesRegency Hospital [facility]03-09-2022 NoteHNO ID: [id number] Author: Arielle Jimenez APRN.RELAY TECHNICIAN Service: ? Author Type: Nurse Learning And Development Consultant Type: Anesthesia Procedure Notes Filed: 01/25/2022 2:54 PM Note Text: ANESTHESIOLOGY PROCEDURE NOTE PIV General Information Procedure Start Time/Medication Administration: 01/25/2022 2:14 PM Patient Location: OR Staffing Anesthesiologist: Kaelyn Zamora MD Performed by: anesthesiologist Preparation Site Prep: alcohol Procedure Details Indication: need for IV access Needle Size/Type: 16 gauge angiocath Orientation: Left Location: Hand Imaging Guidance Used: No SIGNATURE: Arielle Jimenez APRN.CRNA PATIENT NAME: Philippe Ray DATE: January 25, 2022 TIME: 2:54 PM CSN: [id number] Hospital [facility]03-09-2022 NoteHNO ID: [id number] Author: Arielle Jimenez APRN.RELAY TECHNICIAN Service: ? Author Type: Nurse Learning And Development Consultant Type: Anesthesia Procedure Notes Filed: 01/25/2022 2:54 PM Note Text: ANESTHESIOLOGY PROCEDURE NOTE Airway General Information Procedure Start Time/Medication Administration: 01/25/2022 2:16 PM Patient location during procedure: OR Patient identity confirmed: arm band and patient Staffing RELAY TECHNICIAN: Arielle Jimenez APRN.RELAY TECHNICIAN Performed by: HERBIE Indications and Patient Condition Preoxygenated: yes Patient position: sniffing Difficult Mask: No Indications for airway management: anesthesia anesthesia circuit Method: asleep Cricoid Pressure: Yes Final Airway Details Final airway type: endotracheal airway Final Endotracheal Airway: ETT Cuffed: yes Successful intubation technique: direct laryngoscopy Endotracheal tube insertion site: oral Blade: Lorin Blade size: #4 ETT size (mm): 7.5 Measured from: lips Measurement (cm): 23 Placement verified by: capnometry Cormack-Lehane Classification: grade I - full view of glottis Number of attempts at approach: 1 Airway not difficult SIGNATURE: Arielle Jimenez APRN.CRNA PATIENT NAME: Philippe Ray DATE: January 25, 2022 TIME: 2:53 PM CSN: [id number] Hospital [facility]03-07-2022 NoteHNO ID: [id number] Author: Awais Duncan APRN.TRAINING ADMINISTRATOR Service: ? Author Type: Nurse Practitioner Type: Progress Notes Filed: 01/23/2022 2:04 PM Note Text: [facility] PRE-OP NOTE Philippe Ray is a 61 year old male. Pre-op Date: January 20, 2022 Date of Procedure: Sun01/25/2022 Does the patient have an active COVID-19 test in [facility]? Yes Procedure/Surgery: Robotic Partial Nephrectomy. Diagnosis: # 3cm right renal mass Primary Surgeon: MD Kan Christopher There were no vitals taken for this visit. Pain Assessment: Are you currently having pain? No 0 on a scale of 0 to 10 Surgical Guide Book Status: Patient given book today. Dialysis Guide Book Status: Patient given book today. Allergies Reviewed: Yes Medications Reviewed: Yes Is patient currently on oral steroids?: No Has the patient had a UTI in the past month?: No. Does the patient have any artificial joints (last 2 years), metal parts, pacemakers or cardiac/ureteral stents in place?: No - bilateral hips >4 yrs ago Does the patient have diabetes?: No Is the patient routinely taking anticoagulants?: Yes. Patient stopped Aspirin on 01/23/2022. Can the patient have an IV put in either arm?: Yes Urine Dip Complete?: Yes Urine dip shows: Recent Labs 01/23/22 1228 01/23/22 1214 UGLUC Negative Negative UBILI Negative Negative UKET Negative Negative UHB Negative Negative UPH 5.5 6.0 UPROT Negative 1+* UWBC -- 0-5 /HPF URINE CULTURE COMPLETE?: Not Applicable Ostomy/Stoma Nurse appointment made/completed: N/A IMPACT/Medical Clearance: Cleared per IMPACT - Yes [facility]: Cleared per [facility] - N/A All testing on cureform has been scheduled: Yes Consent Signed: Consent not in [facility]. Surgeon notified via staff messages. DOS Orders Placed and Signed: Yes. Pre-op HANDP Done by [employer]: Yes. PATIENT INSTRUCTIONS FOR SURGERY 1.) DO NOT HAVE ANYTHING TO EAT AFTER MIDNIGHT THE DAY BEFORE SURGERY except for certain morning medications as instructed by the doctor. Candy, mints, gum, and smoking are NOT permitted. You may drink clear liquids (Sprite, water, darío leonie) up to two hours before your arrival time on the day of surgery. 2.) Medications to be taken on the morning of surgery with a few sips of water: per IMPACT 3.) Please bring all your prescribed inhalers (if you have any you normally take) to the hospital. 4.) Arrival time: Call for arrival. 5.) Prep given: No 6.) Lovenox instructions given: N/A 7.) Patient reminded that surgery time provided day before surgery is tentative based on potential changes with transplants. Recommendations: Optimization pending: LABS and COVID. cleared by Dr Becerra - local machine applicator cementer. Awais Duncan APRN.TRAINING ADMINISTRATOR Electronically signedRegency Hospital [facility]03-07-2022 NotePatient Outreach (DANNY) PHILIPPE RAY ([id number]) 1960 [place] Date Time Provider Department 01/23/22 AWAIS DUNCAN During your visit today, we recorded the following information about you: Allergies As of Date: 01/23/2022 (No Known Allergies) Date Reviewed: 01/23/2022 Reviewed by: Lurdes Tate MA - Fully Assessed Visit Diagnosis:Screening for genitourinary condition [Z13.89] Order(s):URINALYSIS, REFLEX MICROSCOPIC [PBF2148] Order #: [id number]. #:[id number] Prescriptions as of 01/26/2022 - aspirin 81 mg cap Take by mouth. - amLODIPine (NORVASC) 10 mg tablet Take 10 mg by mouth once daily. - hydroCHLOROthiazide (HYDRODIURIL, ESIDRIX) 12.5 mg tablet Take 12.5 mg by mouth once daily. - omeprazole (PRILOSEC) 20 mg capsule Take 20 mg by mouth once daily. Facility-Administered Medications as of 01/26/2022 - pantoprazole DR 20 mg tab(s) (PROTONIX) - amLODIPine 10 mg tab(s) (NORVASC) - aspirin 81 mg chewable tab(s) - ceFAZolin iv piggyback 2 g in D5W (iso-osmotic) 100 mL (ANCEF) - acetaminophen 1,000 mg tab(s) (TYLENOL) - oxyCODONE IR 5 mg tab(s) (ROXICODONE) - docusate sodium 100 mg cap(s) (COLACE) - NaCl 0.9% iv flush bag - sodium chloride 0.9 % (flush) 3-5 mL (BD POSIFLUSH) - lactated ringers iv infusion - HYDROmorphone (PF) 0.2 mg injection (DILAUDID) - ondansetron (PF) 4 mg injection (ZOFRAN) - magnesium hydroxide 400 mg/5 mL 30 mL (MOM) - bisacodyl 10 mg suppository (DULCOLAX) - melatonin 3 mg tab(s) - aluminum-magnesium hydroxide-simethicone 200-200-20 mg/5 mL 30 mL (MAALOX,MYLANTA,MAG-AL PLUS) - phenol 1 [employer] (CHLORASEPTIC) - heparin 5,000 Units injection - gabapentin 300 mg cap(s) (NEURONTIN) - methocarbamol 750 mg tab(s) (ROBAXIN) Problem List As Of Date 01/23/2022 Noted Resolved HTN (hypertension) [I10] 01/23/2022 Atrial fibrillation (HCC) [I48.91] 01/23/2022 GERD (gastroesophageal reflux disease) [K21.9] 01/23/2022 Encounter Status:Closed by MARGRET MCCAINUSEAltagracia on 01/26/22[facility] 12-15-[facility] NoteHNO ID: [id number] Author: Phil Kan MD Service: ? Author Type: Physician Type: Progress Notes Filed: 12/16/2021 7:58 PM Note Text: [facility] NEW PATIENT HISTORY AND PHYSICAL EXAM PATIENT INFO: Philippe Ray KELI Francis: Rommel Rivera [address] [place] [address] PCP: No primary care provider on file. CHIEF COMPLAINT: Renal neoplasm HPI: Philippe Ray is a 61 year old male who presents with right renal mass. RCC Snapshot: Age at diagnosis: 61 Gender: male Date of radiographic diagnosis: 11/08/2021 Preop GFR: >60 Clinical: Cystic Mass: No Tumor size: (maximum tumor diameter in cm): (cm): 3cm Stage: [id number] RMB: No Presentation: incidental Laterality: Right Solitary kidney: No Horseshoe kidney: No Prev abd surgeries: No Anticoagulation: No Family History of RCC: No Familial syndrome: None Previously treated: No Smoking History: Never Comorbidities: HTN: Yes DM: No Morbid obesity: No History of stone disease: Yes LABS: No results found for: CREAT URINALYSIS: Specific [place], Ur Date Value Ref Range Status 12/15/2021 1.027 1.005 - 1.030 Final Glucose, Urine Date Value Ref Range Status 12/15/2021 Negative Negative mg/dL Final Bilirubin, Urine Date Value Ref Range Status 12/15/2021 Negative Negative Final Ketones, Urine Date Value Ref Range Status 12/15/2021 Negative Negative Final Hemoglobin/Blood,Ur Date Value Ref Range Status 12/15/2021 1+ (A) Negative Final Protein, Urine Date Value Ref Range Status 12/15/2021 Trace (A) Negative Final Nitrites Date Value Ref Range Status 12/15/2021 Negative Negative Final WBC, Urine Date Value Ref Range Status 12/15/2021 0-5 0 - 5 /HPF Final Proteinuria: No IMAGING: CT Abd/pelvis 10/04/2021 MRI Kidney 11/08/2021 ALLERGIES: ALLERGIES Not on File MEDICATIONS: Current Outpatient Medications Medication Sig - amLODIPine (NORVASC) 10 mg tablet Take 10 mg by mouth once daily. - hydroCHLOROthiazide (HYDRODIURIL, ESIDRIX) 12.5 mg tablet Take 12.5 mg by mouth once daily. - omeprazole (PRILOSEC) 20 mg capsule Take 20 mg by mouth once daily. No current facility-administered medications for this visit. HISTORIES No past medical history on file. No past surgical history on file. Social History Tobacco Use - Smoking status: Never Smoker - Smokeless tobacco: Never Used Substance Use Topics - Alcohol use: Yes Alcohol/week: 4.0 standard drinks Types: 4 Cans of Beer (12oz) per week - Drug use: Never No family history on file. REVIEW OF SYSTEMS: GENERAL: Negative for weight loss, fevers, chills, or night sweats. HEENT: Negative for sudden vision or hearing changes. RESPIRATORY: Negative for cough or shortness of breath. CARDIAC: Negative for chest pain, COPD, dyspnea, palpitations, murmurs, or syncopal episodes. GASTROINTESTINAL: Negative for trouble swallowing, heartburn, change in bowel habits, blood in stool, and dark black stools. GENITOURINARY: See HPI MUSCULAR: Negative for limitations in movement, pain, or swelling. NEUROLOGIC: Negative for dizziness, headache, weakness or numbness. HEMATOLOGIC: Negative for bleeding or easy bruising. SKIN: Negative for rashes or other skin changes. LYMPHATIC: No masses noted. EXTREMITIES: No swelling of extremities. PHYSICAL EXAM: Patient is a 61 year old male Constitutional: Vitals: Blood pressure 120/77, pulse 73, height 182.9 cm (6'), weight 89.4 kg (197 lb). General Appearance Adult: Alert, no acute distress, oriented Mouth: throat/mouth:normal as far as I can tell behind the mask Lungs/Repiratory: no respiratory distress, or pursed lip breathing Heart: No obvious jugular venous distension present, normal heart rate Abdomen: soft, nontender, no organomegaly or masses, Estimated body mass index is 26.72 kg/m? as calculated from the following: Height as of this encounter: 182.9 cm (6'). Weight as of this encounter: 89.4 kg (197 lb). Musculoskeltal: extremities normal, no peripheral edema Skin: no noted suspicious lesions or rashes Neuro: Alert, oriented, speech and mentation normal Psych: affect and mood normal Gait: Normal without assistance : No CVA tenderness IMPRESSION: This is a 61 year old male with right renal mass PLAN: We had an extensive discussion about the significance of a localized, enhancing kidney masses/lesions. Evaluation of the literature demonstrates that approximately 80% of enhancing renal masses collar turner to be kidney cancer upon removal, while 20% are found to be benign. Although certain features such as size, gender and tumor characteristics can change these risks. Predominantly cystic masses tend to have a much lower risk of cancer than solid masses. We discussed the role of renal mass biopsy including the fact that renal mass biopsy is very safe with current techniques (ri (more content not included)...[facility]01-27-2022 NotePatient Outreach (UROLMN) PHILIPPE RAY Honorio ([id number]) 1960 M Date Time Provider Department 12/15/21 PHIL KAN During your visit today, we recorded the following information about you: Allergies As of Date: 12/15/2021 (Not on File) Date Reviewed: 12/15/2021 Reviewed by: Kim Alexander MA - Fully Assessed Visit Diagnosis:Screening for genitourinary condition [Z13.89] Order(s):URINALYSIS, DIPSTICK ONLY [SQUA] Order #: [id number]. #:[id number] Prescriptions as of 12/19/2021 - amLODIPine (NORVASC) 10 mg tablet Take 10 mg by mouth once daily. - hydroCHLOROthiazide (HYDRODIURIL, ESIDRIX) 12.5 mg tablet Take 12.5 mg by mouth once daily. - omeprazole (PRILOSEC) 20 mg capsule Take 20 mg by mouth once daily. Problem List As Of Date: 12/15/2021 (None) Encounter Status:Closed by STEPHEN MCCAIN on 12/19/21[facility] Evaluation + Plan note Future Appointments Appointment Date:10/16/2022 02:45:00 PM Scheduled Provider:Rommel RIVERA MD Location:[facility] Appointment Type:URO Office Visit Future Scheduled Tests Radiology* [facility]domen [facility] App[facility]ments Appointment Date:10/19/2023 08:00:00 AM Scheduled Provider:Rommel RIVERA MD Location:[facility] Appointment Type:URO Office Visit Diagnostic Tests Pending * PSA Total 08/19/23 Future Scheduled Tests Radiology* XR Abdomen 1 View 09/20/22 [facility] evaluation + Plan note Future Appointments Appointment Date:11/23/2023 09:45:00 AM Scheduled Provider:Rommel RIVERA MD Location:[facility] Appointment Type:URO [facility] Future Appointments Appointment Date:12/12/2024 08:00:00 AM Scheduled Provider:Rommel RIVERA MD Location:[facility] Appointment Type:URO Office Visit Future Scheduled Tests Radiology* CT Abdomen/Pelvis w/ + w/o Contrast 11/23/23 * CT Abdomen/Pelvis w/ + w/o Contrast 11/23/23 * XR Chest 2 Views 11/23/23 * XR Chest 2 Views 11/23/23 [facility] evaluation + Plan note Future Appointments Appointment Date:12/05/2023 04:00:00 PM Scheduled Provider: Location:.[facility] Appointment Type:CT Abdomen/Pelvis Combo () Appointment Date:12/05/2023 05:00:00 PM Scheduled Provider: Location:[facility] Appointment Type:XR Chest () Appointment Date:12/12/2024 08:00:00 AM Scheduled Provider:Rommel RVIERA MD Location:[facility] Appointment Type:URO Office Visit Future Scheduled Tests Radiology* CT Abdomen/Pelvis w/ + w/o Contrast 12/05/23 * XR Chest 2 Views 11/23/23 * XR Chest 2 Views [facility]05/23 [facility] Future Appointments Appointment Date:12/12/2024 08:00:00 AM Scheduled Provider:Rommel RIVERA MD Location:[facility] Appointment Type:URO Office Visit Future Scheduled Tests Radiology* XR Chest 2 Views 11/23/23 [facility] Future Appointments Appointment Date:12/12/2024 08:00:00 AM Scheduled Provider:Rommel RIVERA MD Location:[facility] Appointment Type:URO Office Visit Diagnostic Tests Pending * Antineutrophil Cytoplasmic Antibody 01/16/24 * Scl-70 Ab + Jo1 01/16/24 * ASA w/Reflex if POS 01/16/24 * Rheumatoid Factor Quantitative 01/16/24 * CCP Antibodies IgG/IgA 01/16/24 * Angiotensin Converting Enzyme 01/16/24 Future Scheduled Tests Radiology* XR Chest 2 Views [facility]23/23 [facility] Future App[facility]ments Appointment Date:12/12/2024 08:00:00 AM Scheduled Provider:[facility]O Office Visit Future Scheduled Tests Laboratory* PSA Total 10/28/24 * BUN 10/28/24 * Creatinine 10/28/24 Radiology* XR Chest 2 Views 10/28/24 [facility] Evaluation + Plan note Future Appointments Appointment Date:12/22/2024 02:45:00 PM Scheduled Provider:Rommel RIVERA [facility] App[facility] Type:URO Office Visit [facility] Evaluation + Plan note Future Appointments Appointment Date:12/25/2025 08:00:00 AM Scheduled Provider:Rommel RIVERA MD Location:[facility] Appointment Type:URO Office Visit Future Scheduled Tests Laboratory* PSA Total 12/21/25 * BUN 12/21/25 * Creatinine 12/21/25 Radiology* CT Abdomen/Pelvis w/ + w/o Contrast 12/22/24 * XR Chest 2 Views 12/22/24 [facility] evaluation note* Diagnosis Malignant neoplasm of right kidney (HCC)- Primary [facility] available[facility] Work Phone: Evaluation note* Diagnosis Atrial fibrillation (CMS/HCC)- Primary Atrial fibrillation Persistent atrial fibrillation (CMS/HCC) Atrial fibrillation Persistent atrial fibrillation (CMS/HCC) Atrial fibrillation documented in this encounter [facility] Work Phone: Evaluation note* Diagnosis Paroxysmal atrial fibrillation (CMS/HCC)- Primary Atrial fibrillation Benign essential hypertension Essential hypertension, benign RBBB (right bundle branch block) Right bundle branch block High risk medication use Overweight documented in this encounter [facility] Work Phone: Evaluation note* Diagnosis Paroxysmal atrial fibrillation (Multi)- Primary Atrial fibrillation Benign essential hypertension Essential hypertension, benign Right bundle branch block (RBBB) determined by electrocardiography Overweight with body mass index (BMI) of 26 to 26.9 in adult Never smoked tobacco High risk medication use documented in this encounter [facility] Work Phone: Evaluation note* Diagnosis Benign essential hypertension Essential hypertension, benign Never smoked tobacco BMI 33.0-33.9,adult documented in this encounter [facility] Work Phone: Evaluation note* Diagnosis Benign essential hypertension Essential hypertension, benign Paroxysmal atrial fibrillation (Multi) Atrial fibrillation RBBB (right bundle branch block) Right bundle branch block Never smoked tobacco BMI 28.0-28.9,adult documented in this encounter [facility] Work Phone: Evaluation note* Diagnosis Bilateral wrist pain- Primary Carpal tunnel syndrome, bilateral Carpal tunnel syndrome Congenital deformity of bone of forearm documented [facility]* Diagnosis Bilateral carpal tunnel syndrome- Primary Carpal tunnel syndrome Arm weakness Other musculoskeletal symptoms referable to limbs Numbness Disturbance of skin sensation Arm pain, right Pain in soft tissues of limb Arm pain, left Pain in soft tissues of limb documented in this encounter [facility]* Diagnosis Preop cardiovascular exam- Primary Pre-operative cardiovascular examination Paroxysmal atrial fibrillation (Multi) Atrial fibrillation Essential hypertension Unspecified essential hypertension documented in this encounter [facility] Work Phone: Evaluation note* Diagnosis Arm pain, left- Primary Pain in soft tissues of limb Carpal tunnel syndrome, bilateral Carpal tunnel syndrome Congenital abnormality of fusion of radius [facility] N[facility] No data available for this section [facility] No data available for this section [facility] Discharge instructions Additional Instructions Take it easy for 24 hours. No driving. No making important decisions. Go to the office for a follow up EKG appointment as scheduled. Maintain medications as ordered.[facility] Work Phone: Progress note No data available for this section [facility] (narrative)* Consultation (Routine) - Authorized Specialty Diagnoses / Procedures Referred By Ronaldo t Referred To Contact Cardiology Diagnoses Benign essential hypertension Procedures Follow Up In Cardiology Mare Hughes MD [address] [facility] 2, [place] [address] [place] [phone] Mare Hughes MD [address] [facility] 2, [place] [address] [place] [id number] Referral ID Status Reason Start Date Expiration Date V isits Requested Visits Authorized [id number] Authorized 08/19/2024 08/19/2025 1 1 * Cardiovascular (Routine) - Authorized Specialty Diagnoses / Procedures Referred By Contac t Referred To Contact Diagnoses Paroxysmal atrial fibrillation (Multi) Procedures ECG 12 Lead Mare Hughes MD [address] [facility] 2, [address] [address] Referral ID Status Reason Start Date Expiration Date V isits Requested Visits Authorized [id number] Authorized 08/19/2024 08/19/2025 1 1 * Consultation (Routine) - Authorized Specialty Diagnoses / Procedures Referred By Contambika t Referred To Contact Cardiology Diagnoses Benign essential hypertension Procedures Follow Up In Cardiology Mare Hughes MD [address] [facility] 2, [address] [address] Mare Hughes MD [address] [facility] 2, [address] [address] Referral ID Status Reason Start Date Expiration Date V isits Requested Visits Authorized [id number] Authorized 08/19/2024 08/19/2025 1 1 [facility] Work Phone: reason for visit Narrative* Other Medical (Routine) - Closed Specialty Diagnoses / Procedures Referred By Contac t Referred To Contact Neurology Diagnoses Arm weakness Numbness Arm pain, right Arm pain, left Procedures EMG AND NERVE CONDUCTION STUDY Ginny Talbert, DO [address] [place] [address] Phone: tel: fax: Dory Navarrete MD [address] [place] [address] Phone: tel: fax: Referral ID Status Reason Start Date Expiration Date V isits Requested Visits Authorized [id number] Closed Perform Procedure 12/08/2024 06/06/2025 1 1 [facility] Family History Unknown Family Member Name Dates Details Aneurysm: Mother Status:Active Family history of hypertensi on: Father(V17.49, Z82.49) Status:Active Family history of diabetes m ellitus: Father(V18.0, Z83.3) Status:Active Unknown Family Member Name Dates Details Family history of diabetes m ellitus: Father(V18.0, Z83.3) Status:Active Family history of hypertensi on: Father(V17.49, Z82.49) Status:Active Aneurysm: Mother Status:Active Unknown Family Member Name Dates Details Aneurysm: Mother Status:Active Family history of hypertensi on: Father(V17.49, Z82.49) Status:Active Family history of diabetes m ellitus: Father(V18.0, Z83.3) Status:Active Unknown Family Member Name Dates Details Aneurysm: Mother Status:Active Family history of hypertensi on: Father(V17.49, Z82.49) Status:Active Family history of diabetes m ellitus: Father(V18.0, Z83.3) Status:Active Unknown Family Member Name Dates Details Aneurysm: Mother Status:Active Family history of hypertensi on: Father(V17.49, Z82.49) Status:Active Family history of diabetes m ellitus: Father(V18.0, Z83.3) Status:Active Unknown Family Member Name Dates Details Aneurysm: Mother Status:Active Family history of hypertensi on: Father(V17.49, Z82.49) Status:Active Family history of diabetes m ellitus: Father(V18.0, Z83.3) Status:Active Unknown Family Member Name Dates Details Aneurysm: Mother Status:Active Family history of hypertensi on: Father(V17.49, Z82.49) Status:Active Family history of diabetes m ellitus: Father(V18.0, Z83.3) Status:Active Unknown Family Member Name Dates Details Aneurysm: Mother Status:Active Family history of hypertensi on: Father(V17.49, Z82.49) Status:Active Family history of diabetes m ellitus: Father(V18.0, Z83.3) Status:Active Unknown Family Member Name Dates Details Aneurysm: Mother Status:Active Family history of hypertensi on: Father(V17.49, Z82.49) Status:Active Family history of diabetes m ellitus: Father(V18.0, Z83.3) Status:Active Unknown Family Member Name Dates Details Aneurysm: Mother Status:Active Family history of hypertensi on: Father(V17.49, Z82.49) Status:Active Family history of diabetes m ellitus: Father(V18.0, Z83.3) Status:Active Unknown Family Member Name Dates Details Aneurysm: Mother Status:Active Family history of hypertensi on: Father(V17.49, Z82.49) Status:Active Family history of diabetes m ellitus: Father(V18.0, Z83.3) Status:Active Unknown Family Member Name Dates Details Aneurysm: Mother Status:Active Family history of hypertensi on: Father(V17.49, Z82.49) Status:Active Family history of diabetes m ellitus: Father(V18.0, Z83.3) Status:Active Advance Directives Documents on File Type Date Recorded Patient Assistant Account Executive Expl anation Advance Directive(s) 01/23/2022 11:10 AM Advance Directive Response Recorded Date/ Time Advance Directives No October 8:32pm Advance Directive Response Recorded Date/ Time Advance Directives No October 7:32pm Latest Code Status on File Code Status Date Activated Date Inactivated Comments Full Code 12/12/2023 8:36 PM Question Answer Comments Plan of Care: Code Status Discussion Completed Decision Maker: Patient Date Activated Date Inactivated Comments 12/12/2023 8:36 PM Question Answer Comments Plan of Care: Code Status Discussion Completed Decision Maker: Patient Date Activated Date Inactivated Comments 12/12/2023 8:36 PM Question Answer Comments Plan of Care: Code Status Discussion Completed Decision Maker: Patient Summary Purpose Chief Complaint * PHILIPPE RAY is being seen for a 3 month follow-up of. * Patient seen in the office for follow-up for the problems noted below. Since she was last seen in the office. 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 He also had left kidney stone removed with lithotripsy without complications. 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 When he was last seen in the office year ago he was havingatrial fibrillation which apparently resolved spontaneously with no recurrences. His [id number] score is only 1 and therefore no anticoagulation was provided. He does not recall any events of recurrent cardiac arrhythmias. He denies orthopnea PND or lower extremity edema and no chest pain. His pressure is under control. He had blood work done in October 2022 at his PCP which was requested. He has chronic right bundle branch block. * Assessment/recommendations: * 1 paroxysmal atrial fibrillation that is asymptomatic, the patient has a very small load of atrial fibrillation. [id number] score is 1. No anticoagulation is in place. His rate is spontaneously controlled. No further cardiac action is needed. Patient had normal echocardiogram and normal nuclear stress test 2021. * 2 hypertension on medical therapy under control * 3 history of benign right renal mass, status [facility]section at the [facility] 2021. Patient in office for EKG ordered by Dr. Mare Hughes MD due to Atrial fibrillation diagnosis. Dr. Buzz Barnes MD in suite. Recent medication changes made 07/12/2023. Flecainide 50mg BID, Metoprolol Suc 25mg QD, Xarelto 20mg QD. Medication list updated verbally. No cardiac complaints while in office. EKG reviewed by Margy Case RN prior to discharge. To Dr. Mare Hughes MD for review.* PHILIPPE RAY is being seen for a 3 week follow-up of. * Patient is in the office for follow-up for paroxysmal atrial fibrillation. Recently had recurrent atrial fibrillation requiring institution of therapy with anticoagulation and antiarrhythmic therapy with flecainide. His rate is controlled but he still has significant limitations on activities due to dyspnea. By dates that he is very active person but this has actually put a hamper on his activities. He has no trouble taking the flecainide and Xarelto. Will complete 1 more week of anticoagulation for cardioversion which will be scheduled in 8 days. The procedure with its benefit and potential risks were discussed with the patient is a full endorsement to proceeding as such. His EKG today confirmed atrial fibrillation with controlled ventricular rate and right bundle branch block. * Assessment/recommendations: * 1 paroxysmal persistent atrial fibrillation. We will continue anticoagulation and flecainide and schedule cardioversion next week. Long-term therapy with ablation was discussed with the patient will be pursuing that option as well. He has no structural heart disease. * 2 hypertension on medical therapy under control * 3 history of benign right renal mass, status postresection at the [facility] 2021. * 4 high risk medication with antiarrhythmics and anticoagulants. Well-tolerated. * 5 complete right bundle branch block which is presently inconsequential. * Patient in the office today for an EKG one week s/p DCC per Dr. Mare Hughes MD On Sunday patient felt he went out of rhythm. Today he states that he still feels he is out of rhythm and is sob with sitting and ambulation with with exertion. He states he felt so good while in rhythm and it is d ificult to work when he is out of rhythm * Patient is taking his medications as directed. * TO Dr. Mare Hughes MD * Reviewed with Margy Case RN Chief Complaint and Reason for Visit Chief Complaint PAfib Chief Complaint PAfib Atrial Fibrillation Reason for Referral Specialty Diagnoses / Procedures Referred By Ronaldo paul Referred To Contact Diagnoses Paroxysmal atrial fibrillation (CMS/HCC) Procedures ECG 12 Lead Mare Hughes MD [address] [facility] 2, [address] [address] Referral ID Status Reason Start Date Expiration Date V isits Requested Visits Authorized [id number] Authorized 12/14/2023 12/13/2024 1 1 Specialty Diagnoses / Procedures Referred By Ronaldo paul Referred To Contact Cardiology Diagnoses Paroxysmal atrial fibrillation (CMS/HCC) Benign essential hypertension Procedures Follow Up In Cardiology Mare Hughes MD [address] [facility] 2, [place] [address] [place] [id number] Mare Hughes MD [address] [facility] 2, [address] [place] [address] Referral ID Status Reason Start Date Expiration Date V isits Requested Visits Authorized [id number] Authorized 12/14/2023 12/13/2024 1 1 Additional Source Comments Source Comments (unrecognize d section and content) In the event this informatio n is protected by the Federal Confidentiality of Alcohol and Drug Abuse Patient Records regulations: The Federal rules restrict any use of the information to criminally investigate or prosecute any alcohol or drug abuse patient.[facility] Reason for Visit (unrecogniz ed section and content) Reason Comments Post-Op Visit Specialty Diagnoses / Procedures Referred By Ronaldo t Referred To Contact Diagnoses Persistent atrial fibrillation (CMS/HCC) Persistent atrial fibrillation (CMS/HCC) [I48.19] Procedures HI COMPRE EP EVAL ABLTJ ATR FIB PULM VEIN ISOLATION [place]bl[place] [address] [place] [address] [id number] [facility] [address] [facility] [address] [place] [address] Referral ID Status Reason Start Date Expiration Date Visits Re quested Visits Authorized [id number] 1 1 Reason Comments Follow-up 1 year Reason Comments Follow-up 4mo Specialty Diagnoses / Procedures Referred By Ronaldo t Referred To Contact Cardiology Diagnoses Paroxysmal atrial fibrillation (Multi) Benign essential hypertension Procedures Follow Up In Cardiology Mare Hughes MD [address], [address] [place] [address] Mare Hughes MD [address], [address] [place] [address] Referral ID Status Reason Start Date Expiration Date V isits Requested Visits Authorized [id number] Authorized 12/14/2023 12/13/2024 1 1 Reason Comments Follow-up 1 month Hypertension Specialty Diagnoses / Procedures Referred By Contac t Referred To Contact Cardiology Diagnoses Benign essential hypertension Procedures Follow Up In Cardiology Mare Hughes MD [address], [address] [address] Phone: tel: fax: Mare Hughes MD [address], [address] [address] Phone: tel: fax: Referral ID Status Reason Start Date Expiration Date V isits Requested Visits Authorized [id number] Authorized 08/19/2024 08/19/2025 1 1 Reason Comments Follow-up 4M Specialty Diagnoses / Procedures Referred By Contac t Referred To Contact Cardiology Diagnoses Paroxysmal atrial fibrillation (Multi) Procedures Follow Up In Cardiology Mare Hughes MD [address], [address] [address] Mare Hughes MD [address] [facility] 2, [address] [address] Referral ID Status Reason Start Date Expiration Date V isits Requested Visits Authorized [id number] Authorized 04/02/2024 04/02/2025 1 1 Reason Comments Pain Reason Comments Pre-op Clearance Specialty Diagnoses / Procedures Referred By Contac t Referred To Contact Diagnoses Preop cardiovascular exam Procedures ECG 12 Lead Mare Hughes MD [address], [address] [address] Phone: tel: fax: Referral ID Status Reason Start Date Expiration Date V isits Requested Visits Authorized [id number] Authorized 12/25/2024 12/25/2025 1 1 Reason Comments Pain Follow-up Care Teams (unrecognized sec tion and content) Commercial Portfolio Manager Relationship Specialty Start Date End Date Mare Hughes [address] [phone] Cardiology 01/23/22 Team Status: Active Member Role Status Dates Clark Sadler , Primary Care Provider Active Team Status: Inactive Member Role Status Dates Mare Hughes MD Attending Provider, Referring Prov ider Active Clark Sadler , Primary Care Provider Active Team Status: Inactive Member Role Status Dates Clark Sadler , DO Primary Care Provider Active Mare Hughes MD Attending Provider, Referring Prov ider Active Commercial Portfolio Manager Relationship Specialty Start Date End Date Clark Sadler DO [address] [place] [facility] [place] [phone] PCP - General Family Medicine 10/16/23 Commercial Portfolio Manager Relationship Specialty Start Date End Date Clark Sadler DO [address] [place] [address] PCP - General Family Medicine 10/16/23 Commercial Portfolio Manager Relationship Specialty Start Date End Date Clark Sadler DO PCP - General Family Medicine 10/16/23 Commercial Portfolio Manager Relationship Specialty Start Date End Date Clark Sadler DO [address] [facility] [place] [phone] PCP - General Family Medicine 10/16/23 Commercial Portfolio Manager Relationship Specialty Start Date End Date Clark Sadler DO PCP - General Family Medicine 10/16/23 Commercial Portfolio Manager Relationship Specialty Start Date End Date Unallocated, Tracy Mari MD [address] [place] [address] PCP - General Family Medicine 12/10/24 Ginny Talbert DO [address] [place] [address] Referring Physician Orthopaedic Surgery 12/10/24 Commercial Portfolio Manager Relationship Specialty Start Date End Date Unallocated, Tracy Mari MD [address] [place] [address] PCP - General Family Medicine 12/10/24 Ginny Talbert DO [address] [place] [address] Referring Physician Orthopaedic Surgery 12/10/24 Commercial Portfolio Manager Relationship Specialty Start Date End Date Clark Sadler DO [address] [place] [phone] PCP - General Family Medicine 10/16/23 Commercial Portfolio Manager Relationship Specialty Start Date End Date Clark Sadler MD [address] [place] [phone] PCP - General Family Medicine 12/24/24 Ginny Talbert DO [address] [place] [address] Referring Physician Orthopaedic Surgery 12/10/24 (unrecognized sect ion and content) No Status Records FoundNo Status Records FoundNo Status Records FoundNo Status Records FoundNo Status Records FoundNo Status Records FoundNo Status Records FoundNo Status Records FoundNo Status Records FoundNo Status Records FoundNo Status Records FoundNo Status Records FoundNo Status Records FoundNo Status Records FoundNo Status Records FoundNo Status Records Found INFORMATION SOURCE (unrecogn ized section and content) DATE CREATED AUTHOR 02/28/2022 [facility] DATE CREATED AUTHOR AUTHOR'S ORGANIZ ATION 03/21/2022 [facility] DATE CREATED AUTHOR AUTHOR'S ORGANIZ ATION 08/03/2023 [employer] DATE CREATED AUTHOR AUTHOR'S ORGANIZ ATION 09/10/2023 [facility] DATE CREATED AUTHOR AUTHOR'S ORGANIZ ATION 11/01/2023 [facility] DATE CREATED AUTHOR AUTHOR'S ORGANIZ ATION 12/21/2023 [facility] DATE CREATED AUTHOR AUTHOR'S ORGANIZ ATION 12/23/2023 [facility] DATE CREATED AUTHOR AUTHOR'S ORGANIZ ATION 10/18/2024 [facility] DATE CREATED AUTHOR AUTHOR'S ORGANIZ ATION 12/05/2024 [place] [facility] DATE CREATED AUTHOR AUTHOR'S ORGANIZ ATION 12/06/2024 Campbell Jared [facility] DATE CREATED AUTHOR AUTHOR'S ORGANIZ ATION 12/24/2024 [place] [facility] DATE CREATED AUTHOR AUTHOR'S ORGANIZ ATION 12/26/2024 [facility] DATE CREATED AUTHOR AUTHOR'S ORGANIZ ATION 12/27/2024 [facility] DATE CREATED AUTHOR AUTHOR'S ORGANIZ ATION 12/29/2024 [facility] Ambulatory Goals (unrecognized section and content) Goals may be documented in a n alternate section Scheduled Active and Recently Administ ered Medications (unrecognized section and content) Medication Order 12/11/2023 12/12/2023 12/13/2023 amiodarone (Pacerone) tablet 200 mg 200 mg, oral, Daily, First dose on Heaven 12/13/23 at 0900 0844 (Given - Provid er: Chato Eden RN) amLODIPine (Norvasc) tablet 5 mg 5 mg, oral, Daily, First dose on Heaven 12/13/23 at 0900 0844 (Given - Provid er: Chato Eden RN) hydroCHLOROthiazide (HYDRODiuril) tablet 12.5 mg 12.5 mg, oral, Daily, First dose on Sun12/13/23 at 0900 0844 (Given - Provid er: Chato Eden RN) metoprolol succinate XL (Toprol-XL) 24 hr tablet 25 mg 25 mg, oral, Daily, First dose on Sun12/13/23 at 0900, Do not crush or chew. 0844 (Given - Provid er: Chato Eden RN) ondansetron (Zofran) injection 4 mg (COMPLETED) 4 mg, intravenous, Once, On Sun12/12/23 at 2000, For 1 dose, When administering via IV Push, administer over 3-5 minutes. 1999 (Given - Provider: Anup Casarez RN) pantoprazole (ProtoNix) EC tablet 40 mg 40 mg, oral, Daily before breakfast, First dose on Sun12/13/23 at 0700, Do not crush, chew, or split. 0609 (Given - Provid er: Tequila Pulido RN) rivaroxaban (Xarelto) tablet 20 mg 20 mg, oral, Daily, First dose on Sun12/13/23 at 0900, Best administered with food or immediately before tube feedings. If ordered via NG or G-tube route, crush and mix with 50 mL water; give within 4 hours of mixing. 0844 (Given - Provid er: Chato Eden RN) PRN Medication Order 12/11/2023 12/12/2023 12/13/2023 acetaminophen (Tylenol) tablet 650 mg 650 mg, oral, Every 6 hours PRN, pain mild (1-3), first line, Starting on Sun12/13/23 at 0454, If ordered PRN for pain, nurse is permitted to administer this medication for higher pain scores based on patient preference? Yes 0459 (Given - Provid er: Tequila Pulido RN) heparin 1,000 unit/mL injection (CANCELED) As needed, Starting on Sun12/12/23 at 1417, Intraprocedure 1417 (Given - Provider: Melly Wilkerson RN - Comment: via groin line RFV)1437 (Given - Provider: Melly Wilkerson, CHEY)1516 (Given - Provider: Melly Wilkerson RN - Comment: verified by Dr. Nicole) heparin 25,000 Units in dextrose 5% 250 mL (100 Units/mL) infusion (premix) (COMPLETED) Continuous PRN, Starting on Sun12/12/23 at 1418, Intraprocedure 1418 (New Bag - Provider: Melly Wilkerson, RN - Comment: via groin line RFV)1437 (Rate/Dose Change - Provider: Melly Wilkerson, RN)1517 (Rate/Dose Change - Provider: Melly Wilkerson RN - Comment: verified by Dr. Nicole) FOR RECORDS PERTAINING TO PATIENTS WHO ARE OR HAVE BEEN ENROLLED IN A CHEMICAL DEPENDENCY/SUBSTANCEABUSE PROGRAM, SOME INFORMATION MAY BE OMITTED. This clinical summary was aggregated from multiple sources. Caution should be exercised in using it in the provision of clinical care. This summary normalizes information from multiple sources, and as a consequence, information in this document may materially change the coding, format and clinical context of patient data. In addition, data may be omitted in some cases. CLINICAL DECISIONS SHOULD BE BASED ON THE PRIMARY CLINICAL RECORDS. [employer] [facility]. provides no warranty or guarantee of the accuracy or completeness of information in this document.
[2025-01-01] MEDS: LACTATED RINGER'S SOLUTION 1,000 ML 50 ML IV (08:40)
[2025-01-01] MEDS: CEFAZOLIN SODIUM 2 GM/50 ML D5W PREMIX IV (09:52)
--- NOTE | 2025-01-01 10:59 | PM.URSON ---
Urology Surgery Operative Note Operative Note Procedure Date: 01/01/25 Time Out Performed: yes Pre-op Diagnosis: Left nephrolithiasis Post-op Diagnosis: same as pre-op Procedures performed: 1. Cystoscopy. 2. Left ureteroscopy. 3. Left pyeloscopy. 4. Thulium laser lithotripsy of left renal calculi. 5. Stone basket extraction from left kidney. 6. Placement of 6 Azerbaijani variable length left ureteral stent Anesthesia: FRANKY Primary Surgeon: Jose Abreu Complications: None Estimated blood loss (mL): 5 Findings: Multiple left renal calculi; nonobstructing. Multiple left Dirk's plaques Specimens: Left renal calculi Drains: 6 Azerbaijani variable length left ureteral stent Indications for Procedures: This gentleman has nonobstructing left renal calculi. He is desirous for ureteroscopic laser lithotripsy and possible stent placement. He has signed an informed consent after risks were explained. Detailed description of Procedure: The patient was brought to the operating room and placed on the operating room table in the supine position. SCDs were placed on the lower extremities and turned on and functioning during the entire case. Timeout was done by all parties in the room. We all agreed upon the patient's identification and the planned procedures for this patient. Genn. anesthesia was then administered. The patient was then repositioned into the modified dorsal lithotomy position. All pressure points were satisfactorily padded. Genitalia were sterilely prepped and draped in usual fashion. I started by passing a 22 Azerbaij[place] Olympus cystoscope per urethra and into the bladder. 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 The scope was able to get through it. 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 Panendoscopy in the bladder revealed no evidence of any tumors or stones. There were no bladder lesions. There was moderate trabeculation. I then passed a Glidewire through the scope and cannulated the left ureter and got the wire up to the kidney. The scope was removed. I then passed a 10/12 Azerbaijani ureteral access sheath over the wire and up to the L5 level. The wire and stylette were then removed. I then passed a flexible ureteroscope through the sheath and up into the ureter and then ascended up into the kidney. I scoped in the upper mid and lower pole calyces. There were some Dirk's plaques in the upper pole calyx. In the midpole there were several small stones. In the lower pole there were also several small stones and 1 sizable stone. I then used a 0 tip nitinol basket and engaged stones from the lower pole. These were extracted out and sent for stone analysis. I then used a 200 Angstrom laser fiber and passed it through the scope and began doing laser lithotripsy with the thulium laser at 7 W under the dusting mode. I dusted all the stones in the lower pole and then went to the midpole calyces and similarly dusted any stones I could see and come into contact with. Upon completion there was no visible evidence of stones. Fluoroscopically we also had no more evidence of stones. The scope was then removed. The wire was passed back to the kidney and the sheath was removed. Cystoscope was backloaded over the wire and passed in the bladder and a 6 Azerbaijani variable length stent was passed over the wire up to the left kidney. The wire was removed and there were good curls in the kidney and in the bladder. Bladder was drained of its contents and the scope was then removed. He was then transferred to a [facility] bed and wheeled to PACU in stable condition. He will be discharged to home with a prescription for Myrbetriq 50 mg daily #14 and doxycycline 100 mg daily #7.
[2025-01-01] MEDS: SOLIFENACIN SUCCINATE 10 MG TABLET PO (11:20)
--- NOTE | 2025-01-01 12:22 | PC.NURSE ---
Up to bathroom and voided clear light red urine without clots
[2025-01-07 20:08] LABS: Calcium Oxalate Monohydrate 100 % (.); Size 3x3 mm (.)
== END 2025-01-01 12:27 | disposition home or self-care (01) ==
PROVIDERS: PCP Family Medicine; Visit Provider Urology
PROC: (CPT 918; principal; 2025-01-01 09:10)
DX: N20.0 Calculus of kidney (principal); K21.9 Gastro-esophageal reflux disease without esophagitis; R31.9 Hematuria, unspecified; N28.89 Other specified disorders of kidney and ureter; N40.1 Benign prostatic hyperplasia with lower urinary tract symptoms; I48.91 Unspecified atrial fibrillation; N32.89 Other specified disorders of bladder; Z90.5 Acquired absence of kidney; I86.1 Scrotal varices; I10 Essential (primary) hypertension
CPT/HCPCS: 52356; 36415; 76000; 82365; 99999; J0690; J1100; J1885; J2250; J2405; J2704; J3010